=== PATIENT | female | born 1935 | race Caucasian/White ===

== ENCOUNTER 2025-01-29 20:29 | Inpatient (IN) ==
[2025-01-29 21:16] LABS: Basophils # (auto) 0.02 K/uL (0.00-0.20); Basophils % (auto) 0.3 %; Eosinophils # (auto) 0.02 K/uL (0.00-0.50); Eosinophils % (auto) 0.3 %; Hematocrit (blood only) 28.1 % (37.0-47.0); Hemoglobin 9.2 g/dl (12.0-16.0); Immature Granulocytes # (auto) 0.03 K/uL (0.01-0.20); Immature Granulocytes % (auto) 0.4 %; Lymphocytes # (auto) 2.03 K/uL (1.20-3.40); Lymphocytes % (auto) 28.3 %; Mean Corpuscular Hemoglobin 27.9 pg (25.0-34.0); Mean Corpuscular Hgb Conc 32.7 g/dL (32.0-36.0); Mean Corpuscular Volume 85.2 fL (80.0-100.0); Mean Platelet Volume 10.8 fL (9.4-12.4); Monocytes % (auto) 8.4 %; Neutrophils # (auto) 4.48 K/uL (1.40-6.50); Neutrophils % (auto) 62.3 %; Platelet Count 183 K/uL (130-400); RDW Standard Deviation 46.7 fL (36.4-46.3); White Blood Count 7.18 K/ul (4.8-10.8)
[2025-01-29 21:45] LABS: Albumin Globulin Ratio 1.5 (0.9-2); Albumin Level 2.9 gm/dl (3.4-5.0); BUN Creatinine Ratio 67.3 (10-20); Bilirubin,Total 0.2 mg/dl (0.2-1.0); Calcium 7.6 mg/dl (8.6-10.3); Creatinine Clr Calc Pharmacy 65.8 ml/min; Globulin 1.9 gm/dl (2.5-4.0); Magnesium 1.9 mg/dl (1.7-2.4); Potassium 4.4 mmol/L (3.5-5.1); Total Protein 4.8 gm/dl (6.0-8.3); Troponin I High Sensitivity 15.6 pg/ml (0-14)
[2025-01-29 21:51] LABS: Thyroid Stimulating Hormone 1.026 uIu/ml (0.300-4.500)
[2025-01-29 22:08] LABS: Adenovirus PCR Not Detected (NotDetected); Bordetella parapertussis PCR Not Detected (NotDetected); Bordetella pertussis PCR Not Detected (NotDetected); Chlamydia pneumoniae PCR Not Detected (NotDetected); Coronavirus 229E PCR Not Detected (NotDetected); Coronavirus CoV-2 (COVID19)PCR Not Detected (NotDetected); Coronavirus HKU1 PCR Not Detected (NotDetected); Coronavirus NL63 PCR Not Detected (NotDetected); Coronavirus OC43PCR Not Detected (NotDetected); Human Metapneumovirus PCR Not Detected (NotDetected); Influenza A PCR Not Detected (NotDetected); Influenza B PCR Not Detected (NotDetected); Mycoplasma pneumoniae PCR Not Detected (NotDetected); Parainfluenza Virus 1 PCR Not Detected (NotDetected); Parainfluenza Virus 2 PCR Not Detected (NotDetected); Parainfluenza Virus 3 PCR Not Detected (NotDetected); Parainfluenza Virus 4 PCR Not Detected (NotDetected); Respiratory Syncytial VirusPCR Not Detected (NotDetected); Rhinovirus/Enterovirus PCR Not Detected (NotDetected)
[2025-01-29 22:19] LABS: Prothrombin Time 29.3 Seconds (9.0-12.0)
[2025-01-29] MEDS: OPTIRAY 320 100ml IV ONE (23:38)
--- NOTE | 2025-01-29 23:49 | XRay Report ---
Exam(s): XR CXR 1 VIEW EXAM: XR Chest, 1 View CLINICAL HISTORY: Reason for exam: weakness. TECHNIQUE: Frontal view of the chest. COMPARISON: No relevant prior studies available. FINDINGS: Lungs: Mild peribronchial thickening of the central bronchi. There is 11 mm nodular density in the right lower lobe and a likely 5 mm nodular density in the right upper lobe. No consolidation. Pleural space: Unremarkable. No pneumothorax. Heart: Unremarkable. No cardiomegaly. Mediastinum: Unremarkable. Normal mediastinal contour. Bones/joints: Unremarkable. No acute fracture. IMPRESSION: Bronchitis, which may be of infectious or inflammatory etiologies. There are two 11 mm nodules in the right lung. Recommend CT scan of the chest for further evaluation. Communications: Verify Receipt Electronically signed by: Kalyani Braun MD 01/29/25 23:48 PM
--- NOTE | 2025-01-29 23:56 | Emergency Department Note ---
Impression & Plan Generalized weakness, Anemia ED Provider Note HISTORY OF PRESENT ILLNESS: Patient is an 89-year-old female presenting with generalized weakness. Family presents to bedside to help provide some more history. Reports that the patient was seen 3 days ago secondary to a scab on her left posterior upper arm that continued to bleed. Patient is on Coumadin. She is on Coumadin for previous history of stroke. States that the patient has not been feeling well for the last week, and over the last 3 days has been getting progressively worse. Patient is very lightheaded and dizzy when she stands up. She is normally ambulatory with a cane, but family reports that she has been so weak that they had to assist her in getting around. Patient reports feeling very thirsty and nauseous. She has not had much in terms of a solid food appetite. She given 700 cc of fluid and 4 mg IV Zofran prehospital with EMS. Patient denies any chest pain or shortness of breath. Denies any recent fevers. Denies that any abdominal pain, vomiting or diarrhea. Denies any recent sick contact exposures. Denies any recent head injuries or chiropractic manipulation of her neck. Denies any dysuria or hematuria. Reports that she just does not feel well. ROS: as above PHYSICAL EXAM: Constitutional: Patient appears in no acute distress. HENT: Head: Normocephalic and atraumatic. Eyes: EOMI, PERRL Mouth/Throat: Mucous membranes moist. Neck: Trachea midline. Neck supple. Cardiovascular: RRR, No murmurs, rubs or gallops. Intact distal pulses. Pulmonary/Chest: No respiratory distress. Breath sounds clear and equal bilaterally. No wheezes or rales. Abdominal: Abdomen soft, no tenderness, rebound or guarding. Musculoskeletal: No edema, tenderness or deformity noted. Skin: Warm and dry. No rash, erythema, pallor or cyanosis Psychiatric: Appropriate mood and affect for situation. Neurological: Alert and keenly responsive. CN II-XII grossly intact, moving all extremities equally and fully. MDM: - Vitals signs stable. - History obtained via patient and patient's daughters. History as above. - Chronic conditions affecting care: GERD; seizure disorder; CVA hx; HLD - Differential diagnoses include, but are not limited to: Pneumonia; UTI; CVA; intracranial hemorrhage; anemia; dysrhythmia; electrolyte abnormality - Order placed for continuous cardiac monitoring. At this time, monitor showed rate of 91 bpm with normal sinus rhythm, per my interpretation. - External medical records reviewed. Colonoscopy dated 02/13/2024 was reviewed. Patient had a 5 mm polyp in the descending colon. Noted to have nonbleeding internal hemorrhoids. - EKG image interpreted by myself showed normal sinus rhythm. Rate 85 bpm. QT 376. No acute ischemic changes. - Laboratory workup interpreted by myself showed normal WBC; anemia (Hgb 9.2 - down from 13.4 two days ago); therapeutic INR (3.0); normal lactate; elevated BUN (35); slightly elevated troponin (15.6); normal TSH - Viral respiratory panel negative. - CXR image reviewed myself is negative for pneumonia, per my interpretation. - CT head wo contrast negative for acute intracranial hemorrhage, per my interpretation. - Patient's symptoms may be secondary to her profound anemia. She has had a 4 g hemoglobin drop in 2 days. She denies any discoloration to her stool. - Discussion was had with case management social worker about patient's case and need for admission - Hospitalist, Dr. Ríos, consulted for admission - [facility] ASSESSMENT AND PLAN: Diagnosis: Generalized weakness; anemia Plan: admit Past Med/Surg History Problem List (Updated 01/29/25 @ 23:58 by Jes Jernigan MD) Anemia (Acute) Generalized weakness (Acute) Bleeding on Coumadin (Acute) Hx of colonic polyp Medical History Hx of basal cell carcinoma History of anesthesia reaction hypersensitive to all narcotics and anesthesia, difficulty waking, also had colonoscopy in the past where she was aware & in pain during procedure Hx of colonic polyp Hypercholesteremia Chronic back pain hx fractured spine age 32's Scoliosis History of stroke x 7, started in 2005, No Neuro at present, no deficits, daily coumadin Seizure disorder (~2018) only x 1, thought stroke, but ruled out, no longer sees Neuro, on Keppra GERD (gastroesophageal reflux disease) Blind right eye Macular degeneration Surgical History Hx of basal cell carcinoma excision Hx of melanoma excision Hx of colonoscopy with polypectomy History of surgery on wrist right Hx of hysterectomy Hx of total knee replacement right Social History Smoking Status: Former smoker Tobacco Type: Cigarettes Cigarettes Per Day: 1 PPD; Second Hand Exposure: No; Do You Dip or Chew Tobacco: No; Hx Alcohol Use: No Hx Substance Use: No Preferred Language: Icelandic Communication Ability: Effective Rock Lather Required: No Beliefs That Will Affect Care: None Current Living Situation: Alone Feels Safe at Home: Yes Assistive Devices: Cane and Walker Allergies Allergies Allergy/AdvReac Type Severity Reaction Status Date / Time azithromycin Allergy Mild Unknown Verified 02/13/24 08:10 [From Zithromax Z-Moe] meperidine [From Demerol] Allergy Mild Unknown Verified 02/13/24 08:10 Penicillins Allergy Mild Unknown Verified 02/13/24 08:10 Sulfa (Sulfonamide Allergy Mild Unknown Verified 02/13/24 08:10 Antibiotics) Home Meds Home Medications Medication Instructions Recorded Confirmed aspirin 81 mg capsule 81 mg PO QAM 01/29/24 02/13/24 calcium carbonate 500 mg PO QAM 01/29/24 02/13/24 cholecalciferol (vitamin D3) 25 25 mcg PO WK 01/29/24 02/13/24 mcg (1,000 unit) capsule (Vitamin D3) docusate sodium 50 mg capsule 50 mg PO HS 01/29/24 02/13/24 (Stool Softener) famotidine 20 mg tablet 20 mg PO QAM 01/29/24 02/13/24 levetiracetam 250 mg tablet 150 mg PO BID 01/29/24 02/13/24 (Keppra) fhcgtedwofsb-yanshnot-zzhyvs tablet 1 tab PO QAM 01/29/24 02/13/24 pravastatin 20 mg tablet 20 mg PO HS 01/29/24 02/13/24 vit C 250 mg-vit E 90 mg-zinc 40 1 tab PO BID 01/29/24 02/13/24 mg-copper 1 xw-btzvae-zskzpl capsule (PreserVision AREDS-2) vitamin B12 0.5 mg-folic acid 1 mg 1 tab PO WK 01/29/24 02/13/24 tablet warfarin 6 mg tablet 6 mg PO UD 01/29/24 02/13/24 Previous Rx's Medication Instructions Recorded peg 3350-electrolytes 236 240 ml PO Q10M #4,000 mL 02/01/24 gram-22.74 gram-6.74 gram-5.86 gram solution (GaviLyte-G) Results & Data (ED) Vital Signs Vital Signs - 24 hr 01/29/25 20:37 01/29/25 20:59 01/29/25 20:59 Temperature 36.8 C Temperature Source Oral Pulse Rate 86 Pulse Rate [Apical] 84 Respiratory Rate 18 16 Respiratory Effort / Characteristics Non-Labored Spontaneous Non-Labored Spontaneous Respiratory Depth Normal Respiratory Pattern Regular Blood Pressure 115/68 Blood Pressure [Right Arm] 101/65 Blood Pressure Mean 83 Blood Pressure Mean [Right Arm] 77 Blood Pressure Position Lying Pulse Oximetry 95 95 95 Oxygen Delivery Method Room Air Room Air Room Air Sepsis Recent Fever Within 48 Hours No Sepsis New/Unexplained Change in Mental Status N/A Sepsis Action Taken by Nursing No Action Required 01/29/25 20:59 01/29/25 22:21 01/29/25 22:24 Temperature Temperature Source Pulse Rate 89 91 H Pulse Rate [Apical] 94 H Respiratory Rate 16 16 Respiratory Effort / Characteristics Non-Labored Spontaneous Respiratory Depth Respiratory Pattern Blood Pressure Blood Pressure [Right Arm] 109/61 Blood Pressure Mean Blood Pressure Mean [Right Arm] 77 Blood Pressure Position Pulse Oximetry 95 95 Oxygen Delivery Method Room Air Room Air Sepsis Recent Fever Within 48 Hours Sepsis New/Unexplained Change in Mental Status Sepsis Action Taken by Nursing Laboratory Data 01/29/25 20:45 01/29/25 20:45 Lab Results 01/29/25 01/29/25 Range/Units 20:45 22:43 WBC 7.18 (4.8-10.8) K/ul RBC 3.30 L (4.20-5.40) M/uL Hgb 9.2 L (12.0-16.0) g/dl Hct 28.1 L (37.0-47.0) % MCV 85.2 (80.0-100.0) fL MCH 27.9 (25.0-34.0) pg MCHC 32.7 (32.0-36.0) g/dL RDW Std Deviation 46.7 H (36.4-46.3) fL RDW Coeff of Roge 15.0 H (11.5-14.5) % Plt Count 183 (130-400) K/uL MPV 10.8 (9.4-12.4) fL Immature Gran % (Auto) 0.4 % Neut % (Auto) 62.3 % Lymph % (Auto) 28.3 % [place] % (Auto) 8.4 % Eos % (Auto) 0.3 % Baso % (Auto) 0.3 % Neut # (Auto) 4.48 (1.40-6.50) K/uL Lymph # (Auto) 2.03 (1.20-3.40) K/uL [place] # (Auto) 0.60 H (0.11-0.59) K/uL Eos # (Auto) 0.02 (0.00-0.50) K/uL Baso # (Auto) 0.02 (0.00-0.20) K/uL Immature Gran # (Auto) 0.03 (0.01-0.20) K/uL PT 29.3 H (9.0-12.0) Seconds INR 3.0 H (0.9-1.1) Sodium 142 (136-145) mmol/L Potassium 4.4 (3.5-5.1) mmol/L Chloride 112 H (98-107) mmol/L Carbon Dioxide 28 (21-32) mmol/L Anion Gap 2 L (3-11) BUN 35 H (6-23) mg/dl Creatinine 0.52 L (0.6-1.2) mg/dl Est Cr Clr Drug Dosing 65.8 ml/min eGFR 89.87 BUN/Creatinine Ratio 67.3 H (10-20) Glucose 99 (70-99(Fasting)) mg/dl Lactate 0.9 (0.4-2.0) mmol/L Calcium 7.6 L (8.6-10.3) mg/dl Magnesium 1.9 (1.7-2.4) mg/dl Total Bilirubin 0.2 (0.2-1.0) mg/dl AST 14 (13-39) U/L ALT 12 (7-52) U/L Alkaline Phosphatase 60 (34-104) U/L Troponin I High Sens 15.6 H (0-14) pg/ml Total Protein 4.8 L (6.0-8.3) gm/dl Albumin 2.9 L (3.4-5.0) gm/dl Globulin 1.9 L (2.5-4.0) gm/dl Albumin/Globulin Ratio 1.5 (0.9-2) TSH 1.026 (0.300-4.500) uIu/ml Adenovirus (PCR) Not Detected (NotDetected) B. pertussis DNA (PCR) Not Detected (NotDetected) B.parapertussis DNA PCR Not Detected (NotDetected) C. pneumoniae DNA (PCR) Not Detected (NotDetected) Coronavirus OC43 (PCR) Not Detected (NotDetected) Coronavirus HKU1 (PCR) Not Detected (NotDetected) Coronavirus 229E (PCR) Not Detected (NotDetected) SARS-CoV-2 (PCR) Not Detected (NotDetected) Coronavirus NL63 (PCR) Not Detected (NotDetected) Human Metapneumovir PCR Not Detected (NotDetected) Influenza Type A (PCR) Not Detected (NotDetected) Influenza Type B (PCR) Not Detected (NotDetected) M. pneumoniae (PCR) Not Detected (NotDetected) Parainfluenza 1 (PCR) Not Detected (NotDetected) Parainfluenza 2 (PCR) Not Detected (NotDetected) Parainfluenza 3 (PCR) Not Detected (NotDetected) Parainfluenza 4 (PCR) Not Detected (NotDetected) RSV (PCR) Not Detected (NotDetected) Entero/Rhino (PCR) Not Detected (NotDetected) Administered Medications Discontinued Medications Ioversol (Optiray 320 100ml) 93 ml IV ONCE ONE Stop: 01/29/25 23:38 Last Admin: 01/29/25 23:38 Dose: 93 ml Documented By: PLW Imaging Data Radiologist's Impression: Chest X-Ray 01/29/25 20:54 CR Exam(s): XR CXR 1 VIEW EXAM: XR Chest, 1 View CLINICAL HISTORY: Reason for exam: weakness. TECHNIQUE: Frontal view of the chest. COMPARISON: No relevant prior studies available. FINDINGS: Lungs: Mild peribronchial thickening of the central bronchi. There is 11 mm nodular density in the right lower lobe and a likely 5 mm nodular density in the right upper lobe. No consolidation. Pleural space: Unremarkable. No pneumothorax. Heart: Unremarkable. No cardiomegaly. Mediastinum: Unremarkable. Normal mediastinal contour. Bones/joints: Unremarkable. No acute fracture. IMPRESSION: Bronchitis, which may be of infectious or inflammatory etiologies. There are two 11 mm nodules in the right lung. Recommend CT scan of the chest for further evaluation. Communications: Verify Receipt Electronically signed by: Kalyani Braun MD 01/29/25 23:48 PM Discharge Plan Visit Data Chief Complaint: Weakness Stated Complaint: WEAKNESS ED Provider: Jes Jernigan Discharge Problem: Generalized weakness, Anemia Forms Stand Alone Forms: My [facility] [employer] Prescriptions Prescriptions: No Action peg 3350-electrolytes [GaviLyte-G] 236-22.74-6.74 -5.86 gram recon soln 240 ml PO Q10M Qty: 4000 0RF Rx Instructions: until fecal effluent is clear Stool Softener 50 mg Capsule 50 mg PO HS warfarin 6 mg Tablet 6 mg PO UD Rx Instructions: 6 mg on Pvm-Qmp-Dyihv-Mon-Mon, 3 mg on and Sat famotidine 20 mg Tablet 20 mg PO QAM calcium carbonate 500 mg calcium (1,250 mg) Tablet 500 mg PO QAM levetiracetam [Keppra] 250 mg Tablet 150 mg PO BID pravastatin 20 mg Tablet 20 mg PO HS cholecalciferol (vitamin D3) [Vitamin D3] 25 mcg (1,000 unit) Capsule 25 mcg PO WK [id number]-[id number]-ofdasq Tablet 1 tab PO QAM vitamin Q15-jlmnc acid 0.5-1 mg Tablet 1 tab PO WK PreserVision AREDS-2 250-90-40-1 mg Capsule 1 tab PO BID aspirin 81 mg Capsule 81 mg PO QAM Referrals Referrals: Carol Encarnacion PA-C [Primary Care Provider] -
--- NOTE | 2025-01-30 00:41 | History & Physical Report ---
Date of Service January 30, 2025 Assessment & Plan (1) Hypotension: Plan: Hypotension secondary to recent LUE bleed Coumadin coagulopathy, history recurrent CVA No bleeding following ER visit 2 days ago with Gelfoam application on wound New onset anemia secondary to bleeding episode Complicated UTI, no sepsis for now hyperlipidemia, on statin Rx seizure disorder, stable on Keppra Incidental finding of pulmonary nodules on chest x-ray past tobacco abuse Admit to med/tele IVF Follow H&H, transfuse PRBC to maintain hemoglobin of at least 8 Hold Coumadin for now and resume once H&H stable Urine CS, ceftriaxone Outpatient CT chest for pulmonary nodules PT OT eval DVT prophylaxis. SCDs while Coumadin on hold if INR less than 2, resume Coumadin if H&H stable Full code Patient daughter requesting updates providers. Talya Michael, contact #[phone]. Text document was generated using [employer] voice recognition software. It may contain grammatical or spelling errors. Kindly contact undersigned for clarification of any documentation item in question. History of Present Illness Chief Complaint: Weakness, near syncope Primary Care Provider: Carol Encarnacion PA-C History obtained from patient, family, and records. 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 Patient noted to have bleeding spot on left arm after she scratched a seborrheic keratosis lesion last week as per daughter. Patient consulted ER 3 days ago. Gelfoam applied to punctate wound on posterior left upper extremity. Bleeding controlled following ER visit as per family. Yesterday, patient noted dizziness symptoms described as lightheadedness. [place] like she was going to pass out. Denies chest pain, SOB. Achy right-sided abdominal pain without black/bloody stools. SBP 80s upon EMS arrival at patient's home. 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 Allergies Allergy/AdvReac Type Severity Reaction Status Date / Time azithromycin Allergy Mild Unknown Verified 01/30/25 00:47 [From Zithromax Z-Moe] meperidine [From Demerol] Allergy Mild Unknown Verified 01/30/25 00:47 Penicillins Allergy Mild Unknown Verified 01/30/25 00:47 Sulfa (Sulfonamide Allergy Mild Unknown Verified 01/30/25 00:47 Antibiotics) Home Medications Medication Instructions Recorded Confirmed Type aspirin 81 mg capsule 81 mg PO QAM 01/29/24 01/30/25 History calcium carbonate 500 mg PO QAM 01/29/24 01/30/25 History xxtliuhehspa-kflziumo-aanoti tablet 1 tab PO QAM 01/29/24 01/30/25 History pravastatin 20 mg tablet 20 mg PO HS 01/29/24 01/30/25 History vit C 250 mg-vit E 90 mg-zinc 40 1 tab PO BID 01/29/24 01/30/25 History mg-copper 1 fx-smimgy-shfskk capsule (PreserVision AREDS-2) vitamin B12 0.5 mg-folic acid 1 mg 1 tab PO WK 01/29/24 01/30/25 History tablet warfarin 6 mg tablet 6 mg PO 6XWK 01/29/24 01/30/25 History peg 3350-electrolytes 236 240 ml PO Q10M #4,000 mL 02/01/24 01/30/25 Rx gram-22.74 gram-6.74 gram-5.86 gram solution (GaviLyte-G) cholecalciferol (vitamin D3) 10 400 unit PO DAILY 01/30/25 01/30/25 History mcg (400 unit) tablet docusate sodium 100 mg capsule 100 mg PO Q2D 01/30/25 01/30/25 History famotidine 40 mg tablet 40 mg PO DAILY 01/30/25 01/30/25 History levetiracetam 750 mg tablet 750 mg PO BID 01/30/25 01/30/25 History warfarin 6 mg tablet 3 mg PO WK 01/30/25 01/30/25 History Past Med/Surg History Problem List (Updated 01/30/25 @ 11:16 by Consuelo Longoria PA-C) Elevated troponin Pulmonary nodules Abnormal CT of the abdomen History of seizure disorder Occasional tremors Hypotension Near syncope Acute anemia UTI (urinary tract infection) Anemia (Acute) Generalized weakness (Acute) Bleeding on Coumadin (Acute) Hx of colonic polyp Medical History Hx of basal cell carcinoma History of anesthesia reaction hypersensitive to all narcotics and anesthesia, difficulty waking, also had colonoscopy in the past where she was aware & in pain during procedure Hx of colonic polyp Hypercholesteremia Chronic back pain hx fractured spine age 32's Scoliosis History of stroke x 7, started in 2005, No Neuro at present, no deficits, daily coumadin Seizure disorder (~2018) only x 1, thought stroke, but ruled out, no longer sees Neuro, on Keppra GERD (gastroesophageal reflux disease) Blind right eye Macular degeneration Surgical History Hx of basal cell carcinoma excision Hx of melanoma excision Hx of colonoscopy with polypectomy History of surgery on wrist right Hx of hysterectomy Hx of total knee replacement right Social History Smoking Status: Former smoker Tobacco Type: Cigarettes Cigarettes Per Day: 1 PPD; Smoking End Date: >50 yrs ago; Second Hand Exposure: No; Do You Dip or Chew Tobacco: No; Hx Alcohol Use: No Hx Substance Use: No Preferred Language: Icelandic Communication Ability: Effective Field Assembly Supervisor Required: No Beliefs That Will Affect Care: None Current Living Situation: Alone Feels Safe at Home: Yes Assistive Devices: Cane and Glasses Review of Systems Review of Systems: As per HPI, all other systems reviewed and negative Physical Exam Physical Exam: GENERAL: Slightly uncomfortable, slightly hard of hearing, no respiratory distress SKIN: Pallor,, warm HEENT: Pale palpebral conjunctivae, no ptosis, dry buccal mucosa NECK : Supple, no tenderness CHEST : CTA, no tenderness HEART : RRR, no obvious murmurs ABDOMEN: Some distention, nontender EXTREMITIES : Dressing LUE, no LE swelling/tenderness, palpable pulses, no other conspicuous deformities noted NEUROLOGIC : Coherent, no facial asymmetry, slightly hard of hearing, gait and stance not assessed Results & Data Results & Data Vital Signs (Past 12 Hours) Vital Signs Temp Pulse Pulse Resp BP BP Pulse Ox 01/29/25 22:24 91 H 01/29/25 22:21 94 H 16 109/61 95 01/29/25 20:59 89 16 95 01/29/25 20:59 84 16 101/65 95 01/29/25 20:59 95 01/29/25 20:37 36.8 C 86 18 115/68 95 O2 Del Method 01/29/25 22:24 01/29/25 22:21 Room Air 01/29/25 20:59 Room Air 01/29/25 20:59 Room Air 01/29/25 20:59 Room Air 01/29/25 20:37 Room Air Laboratory Results Laboratory Results WBC 7.18 K/ul (4.8-10.8) 01/29/25 20:45 RBC 3.30 M/uL (4.20-5.40) L 01/29/25 20:45 Hgb 9.2 g/dl (12.0-16.0) L 01/29/25 20:45 Hct 28.1 % (37.0-47.0) L 01/29/25 20:45 MCV 85.2 fL (80.0-100.0) 01/29/25 20:45 MCH 27.9 pg (25.0-34.0) 01/29/25 20:45 MCHC 32.7 g/dL (32.0-36.0) 01/29/25 20:45 RDW Std Deviation 46.7 fL (36.4-46.3) H 01/29/25 20:45 RDW Coeff of Roge 15.0 % (11.5-14.5) H 01/29/25 20:45 Plt Count 183 K/uL (130-400) 01/29/25 20:45 MPV 10.8 fL (9.4-12.4) 01/29/25 20:45 Immature Gran % (Auto) 0.4 % 01/29/25 20:45 Neut % (Auto) 62.3 % 01/29/25 20:45 Lymph % (Auto) 28.3 % 01/29/25 20:45 [place]idge % (Auto) 8.4 % 01/29/25 20:45 Eos % (Auto) 0.3 % 01/29/25 20:45 Baso % (Auto) 0.3 % 01/29/25 20:45 Neut # (Auto) 4.48 K/uL (1.40-6.50) 01/29/25 20:45 Lymph # (Auto) 2.03 K/uL (1.20-3.40) 01/29/25 20:45 Doddridge # (Auto) 0.60 K/uL (0.11-0.59) H 01/29/25 20:45 Eos # (Auto) 0.02 K/uL (0.00-0.50) 01/29/25 20:45 Baso # (Auto) 0.02 K/uL (0.00-0.20) 01/29/25 20:45 Immature Gran # (Auto) 0.03 K/uL (0.01-0.20) 01/29/25 20:45 PT 29.3 Seconds (9.0-12.0) H 01/29/25 20:45 INR 3.0 (0.9-1.1) H 01/29/25 20:45 Sodium 142 mmol/L (136-145) 01/29/25 20:45 Potassium 4.4 mmol/L (3.5-5.1) 01/29/25 20:45 Chloride 112 mmol/L (98-107) H 01/29/25 20:45 Carbon Dioxide 28 mmol/L (21-32) 01/29/25 20:45 Anion Gap 2 (3-11) L 01/29/25 20:45 BUN 35 mg/dl (6-23) H 01/29/25 20:45 Creatinine 0.52 mg/dl (0.6-1.2) L 01/29/25 20:45 Est Cr Clr Drug Dosing 65.8 ml/min 01/29/25 20:45 eGFR 89.87 01/29/25 20:45 BUN/Creatinine Ratio 67.3 (10-20) H 01/29/25 20:45 Glucose 99 mg/dl (70-99(Fasting)) 01/29/25 20:45 Lactate 0.9 mmol/L (0.4-2.0) 01/29/25 22:43 Calcium 7.6 mg/dl (8.6-10.3) L 01/29/25 20:45 Magnesium 1.9 mg/dl (1.7-2.4) 01/29/25 20:45 Total Bilirubin 0.2 mg/dl (0.2-1.0) 01/29/25 20:45 AST 14 U/L (13-39) 01/29/25 20:45 ALT 12 U/L (7-52) 01/29/25 20:45 Alkaline Phosphatase 60 U/L (34-104) 01/29/25 20:45 Troponin I High Sens 15.6 pg/ml (0-14) H 01/29/25 20:45 Total Protein 4.8 gm/dl (6.0-8.3) L 01/29/25 20:45 Albumin 2.9 gm/dl (3.4-5.0) L 01/29/25 20:45 Globulin 1.9 gm/dl (2.5-4.0) L 01/29/25 20:45 Albumin/Globulin Ratio 1.5 (0.9-2) 01/29/25 20:45 TSH 1.026 uIu/ml (0.300-4.500) 01/29/25 20:45 Adenovirus (PCR) Not Detected (NotDetected) 01/29/25 20:45 B. pertussis DNA (PCR) Not Detected (NotDetected) 01/29/25 20:45 B.parapertussis DNA PCR Not Detected (NotDetected) 01/29/25 20:45 C. pneumoniae DNA (PCR) Not Detected (NotDetected) 01/29/25 20:45 Coronavirus OC43 (PCR) Not Detected (NotDetected) 01/29/25 20:45 Coronavirus HKU1 (PCR) Not Detected (NotDetected) 01/29/25 20:45 Coronavirus 229E (PCR) Not Detected (NotDetected) 01/29/25 20:45 SARS-CoV-2 (PCR) Not Detected (NotDetected) 01/29/25 20:45 Coronavirus NL63 (PCR) Not Detected (NotDetected) 01/29/25 20:45 Human Metapneumovir PCR Not Detected (NotDetected) 01/29/25 20:45 Influenza Type A (PCR) Not Detected (NotDetected) 01/29/25 20:45 Influenza Type B (PCR) Not Detected (NotDetected) 01/29/25 20:45 M. pneumoniae (PCR) Not Detected (NotDetected) 01/29/25 20:45 Parainfluenza 1 (PCR) Not Detected (NotDetected) 01/29/25 20:45 Parainfluenza 2 (PCR) Not Detected (NotDetected) 01/29/25 20:45 Parainfluenza 3 (PCR) Not Detected (NotDetected) 01/29/25 20:45 Parainfluenza 4 (PCR) Not Detected (NotDetected) 01/29/25 20:45 RSV (PCR) Not Detected (NotDetected) 01/29/25 20:45 Entero/Rhino (PCR) Not Detected (NotDetected) 01/29/25 20:45 Impressions Chest X-Ray 01/29/25 20:54 CR Exam(s): XR CXR 1 VIEW EXAM: XR Chest, 1 View CLINICAL HISTORY: Reason for exam: weakness. TECHNIQUE: Frontal view of the chest. COMPARISON: No relevant prior studies available. FINDINGS: Lungs: Mild peribronchial thickening of the central bronchi. There is 11 mm nodular density in the right lower lobe and a likely 5 mm nodular density in the right upper lobe. No consolidation. Pleural space: Unremarkable. No pneumothorax. Heart: Unremarkable. No cardiomegaly. Mediastinum: Unremarkable. Normal mediastinal contour. Bones/joints: Unremarkable. No acute fracture. IMPRESSION: Bronchitis, which may be of infectious or inflammatory etiologies. There are two 11 mm nodules in the right lung. Recommend CT scan of the chest for further evaluation. Communications: Verify Receipt Electronically signed by: Kalyani Braun MD 01/29/25 23:[address] head: No evidence of acute intracranial pathology. CT abdomen pelvis: Fullness centrally in both kidneys. Much of this appears to represent parapelvic cysts though it is difficult to exclude some degree of bilateral hydronephrosis without delayed images. There is no dilated ureter or urinary tract calculus. No other visually acute findings. Diagnostic Findings EKG as per my interpretation :Rate 85, NSR, normal axis, nonspecific T wave abno rmalities
[2025-01-30 00:55] LABS: Appearance Urine Clear (Clear); Bacteria Urine Automated 4+ (None Seen); Bilirubin Urine Negative (Negative); Blood Urine Negative (Negative); Cast Urine Automated 0-2 /lpf (0-2); Color Urine Yellow; Epithelial Cell Urine Auto 0-2 /hpf (0-2); Glucose Urine UA Negative (Negative); Ketones Urine Trace (Negative); Leukocyte Esterase Urine 1+ (Negative); Nitrite Urine Negative (Negative); Protein Urine Negative (Negative); RBC Urine Automated 0-2 /hpf (0-2); Specific Gravity Urine 1.023 (1.000-1.030); Urobilinogen Urine Negative (Negative); pH Urine 5.5 (4.5-7.5)
[2025-01-30] MEDS: SODIUM CHLORIDE 0.45 % 1,000 ML IV STA (00:55)
[2025-01-30 01:02] LABS: Hematocrit (blood only) 26.7 % (37.0-47.0); Hemoglobin 8.7 g/dl (12.0-16.0); Reticulocyte % 1.39 % (0.50-2.00)
[2025-01-30] MEDS ORDERED: PROMETHAZINE 6.25 MG/50.25 ML BAG IV PRN (01:13)
[2025-01-30 01:28] LABS: Troponin I High Sensitivity 16.6 pg/ml (0-14)
[2025-01-30 01:42] LABS: Ferritin 11.6 ng/ml (8-388)
--- OUTSIDE RECORDS SUMMARY | 2025-01-30 01:42 | External Medical Summary | Summary of Care ---
Author Name Unknown Organization [facility] Address [address] [place] [address] Phone [phone] Care Team Providers Care Package Delivery Room Service Runner Name Role Phone Carol Encarnacion PA-C Primary Care Provider [phone] Reason for Visit * Reason Comments Dosage Adjustment Via Phone (anticoag Cl inic) Encounter Details Date Type Department Care Team (Late st Contact Info) Description 01/27/2025 6:15 PM EDT Anticoagulation [facility], Elenita Garcia [address] [place] [address] [place] [address] [place] [address] History of TIA (transient ischemic attack)* Allergies Active Allergy Reactions Criticality Noted Date Comments Atorvastatin 03/02/2023 Ciprofloxacin 03/02/2023 Levofloxacin 03/02/2023 Penicillins 03/02/2023 Rosuvastatin 03/02/2023 Sulfa Antibiotics 03/02/2023 Azithromycin 03/02/2023 documented as of this encounter (statuses as of 01/27/2025) Medications Aspirin 81 MG Oral Tablet Chewable Take 1 Tablet by mouth in the morning. Active Multi Adult Gummies Oral Tablet Chewable Take by mouth. Active PreserVision AREDS 2 Oral Tablet Chewable Take by mouth. Active Famotidine 10 MG Oral Tablet (Pepcid) Take 1 Tablet by mouth in the morning and 1 Tablet before bedtime. Active Vitamin B-12 100 MCG Oral Tablet (vitamin B-12) Take 1 Tablet by mouth in the morning. Active Vitamin D3 1.25 MG (97162 UT) Oral Capsule Take 1 Capsule by mouth in the morning. Active Enoxaparin Sodium 60 MG/0.6ML Injection Solution Prefilled Syringe (Lovenox)Indicat ions:History of TIA (transient ischemic attack) Inject 60 mg under the skin in the morning and 60 mg before bedtime. As instructed by the [facility]. 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 180 Tablet 2 4 Active Pravastatin Sodium 20 MG Oral Tablet (Pravachol)Indic ations:Dyslipide bibi, goal LDL below 100 Take 1 Tablet by mouth daily. 90 Tablet 2 4 Active Warfarin Sodium 6 MG Oral Tablet (Coumadin)Indica tions:History of TIA (transient ischemic attack) Take 0.5-1 Tablets by mouth in the morning. 90 Tablet 2 4 Active DULoxetine HCl 30 MG Oral Capsule Delayed Release Particles (Cymbalta)Indica tions:Spinal stenosis of lumbosacral region Take 1 Capsule by mouth in the morning. 90 Capsule 3 4 Active DULoxetine HCl 20 MG Oral Capsule Delayed Release Particles (duloxetine) Take 1 Capsule by mouth in the morning. At to 30 mg dose. For a total of 50 mg daily Do not cut, crush or chew. 30 Capsule 5 5 Active documented as of this encounter (statuses as of 01/27/2025) Active Problems Problem Noted Date Diagnosed Date Hx of nonmelanoma skin cancer 01/02/2025 Overview (01/02/2025): basal cell carcinoma (R upper arm 6/23) Hx of actinic keratosis 01/02/2025 Hx of melanoma in situ 01/02/2025 Overview (01/02/2025): melanoma in situ (R upper arm 6/23) History of spinal fracture 04/03/2023 Spinal stenosis of lumbosacral region 04/03/2023 Status post total right knee replacement 023 Hip arthritis 04/03/2023 Tubular adenoma of colon 04/03/2023 Personal history of malignant melanoma Dyslipidemia, goal LDL below 100 04/03/2023 History of squamous cell carcinoma 04/03/2023 History of TIA (transient ischemic attack) 04/03 Seizure disorder, simple par tial, without intractable epilepsy 04/03/2023 Macular degeneration of both eyes 04/03/2023 documented as of this encounter (statuses as of 01/27/2025) Resolved Problems Problem Noted Date Diagnosed Date Resolved Date 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 01/09/2024 01/02/2025 documented as of this encounter (statuses as of 01/27/2025) Immunizations Name Administration Dates Next Due COVID-19, MRNA-LNP, PF, 30 M CG/0.3 mL, 12 YRS AND ABOVE, IM (PFIZER-Comirnaty) 06/22/2023 RSV Vac., Recomb, Adjuvant, PF,0.5 Ml (Arexvy) 0 06/29/2023 Seasonal Influenza Virus Vac cine, Unspecified Formulation 06/12/2023 Zoster Vaccine Recombinant (Shingrix) 06/12/2023 ,04/06/2023 documented as of this encounter Social History Tobacco Use Types Packs/Day Years Used Date Smoking Tobacco: Former Cigarettes Smokeless Tobacco: Never Alcohol Use Standard Drinks/Week Comments Yes 0 (1 standard drink = 0.6 oz pur e alcohol) very occ Comments Unknown Sex and Gender Information Value Date Recorded Sex Assigned at Female 12/15/2023 6:26 AM EDT Legal Sex Female 8:48 AM EDT Gender Identity Female 12/15/2023 6:26 AM EDT Sexual Orientation Straight 12/15/2023 6: 26 AM EDT documented as of this encounter Progress Notes * Shaver, Carolyn Enedina, RPh - 01/27/2025 3:11 PM EDT Images from the original note were not included. Medication Therapy Disease Management - Anticoagulation Patient: Melina Blankenship | : 1935 Subjective Contacts Contact Date/Time Type Contact Phone/Fax 01/27/2025 02:43 PM EDT Phone (Incoming) Talya Sheth (Emergency Contact) [phone] (M) Patient-Reported Symptoms: Patient Findings Positives: Signs/symptoms of bleeding (See notes below), Extra doses (Already took Coumadin dose today) Negatives: Signs/symptoms of thrombosis, Change in health, Change in alcohol use, Change in activity, Upcoming invasive procedure, Missed doses, Change in medications, Change in diet/appetite, Bruising Comments: Per daughter patient has a blister on her shoulder which has been bleeding continuously for 1.5 hours despite pressure and Band-Aid. Patient has also been scratching her arms and legs and is dripping blood from the scratches and also has bleeding from fingerstick INR draw. Advised I recommend ER evaluation due to continuous uncontrolled bleeding. Patient already took Coumadin dose this AM. Daughter is agreeable to taking patient to ER- advised [facility] will follow up tomorrow to check status- advised if patient is discharged home tonight to not take Coumadin tomorrow until she hears fromus. Objective Current Warfarin Dose As of 01/27/2025 Warfarin maintenance plan: 3 mg (6 mg x 0.5) every Tue; 6 mg (6 mg x 1) all other days INR Result As of 01/27/2025 INR goal: 2.0-3.0 INR used for dosin.6 (01/27/2025) Assessment & Plan Warfarin Plan As of 01/27/2025 Full warfarin instructions: 01/28: Hold; Otherwise 3 mg every Tue; 6 mg all other days Next INR check: 02/03/2025 Repeat PT/INR TBD Weekly dose: not changed for now- will likely need decrease Additional Dosing Information: Description Home Machine Per daughter Talya always keep 1 week check for insurance Carolyn Rojas RP Clinical Pharmacist 01/27/2025, 3:11 PM * Gerda Charles CPhT - 01/27/2025 2:43 PM EDT Caller's name: Talya Preferred call back number(OFFICE NUMBER FOR ): [phone] Reason for call: INR and bleeding concerns Patient's daughter Talya calling in INR result from today. INR = 3.6 Daughter requesting call back with same day dosing since INR is high. She also states patient is bleeding quite a bit. She states anywhere she gets a small scratch or bumps her arm or leg even lightly she bleeds for a long time and they are unable to get it to stop. She assumes it is due to higher INR, but she is concerned. Thank you, Gerda Charles CPhT Medication Specialist II [facility] ([facility]) 01/27/2025,2:43 PM documented in this encounter Plan of Treatment Upcoming Encounters Date Type Department Care Team (Late st Contact Info) Description 01/28/2025 6:45 AM EDT Anticoagulation [facility] Clinical Pharmacy Services, [address] [place] [address] [facility], [address] [place] [address] 03/20/2025 1:00 PM EDT Office Visit Pharmacy, [facility] [address] [facility] [place] [address] [facility] [address] [facility] [place] [address] 01/06/2026 1:20 PM EDT Office Visit Dermatology, [address] [place] [phone] Gala Gould PA-C [address] [place] [address] [place] [id number] Health Maintenance Due Date Last Done Comments Depression Screening 1947 DTap/Tdap Vaccines (1 - Tdap) 1954 DXA Scan 2002 Adult Wellness Visit 2003 Pneumococcal Vaccine: 50+ Years (2 of 2 - PPSV23) 01/05/2018 01/05/2017 COVID-19 Vaccine ( season) 2024 06/12/2024, 06/22/2023, 04/06/2023, Additional history exists Zoster Vaccines Completed 06/12/2023, 04/06/2023 Influenza Vaccine (FLU shot) Completed 08/2024, 06/12/2024, 06/12/2023, Additional history exists HPV (Gardasil) Vaccine Aged Out No lo nger eligible based on patient's age to complete this topic Hepatitis B Vaccine Aged Out No longe r eligible based on patient's age to complete this topic MENINGOCOCCAL (MENACTRA/MENVEO) Aged Out No longer eligible based on patient's age to complete this topic Meningitis B Vaccine (Bexsero/Trumemba) Aged Out No longer eligible based on patient's age to complete this topic documented as of this encounter Medical Devices Not on filedocumented as of this encounter Procedures Procedure Name Priority Date/Time Associated Diagnosis Comments OUTSIDE LAB-PT/INR Routine 01/27/2025 documented in this encounter Results * OUTSIDE LAB-PT/INR (01/27/2025) INR-OUTSIDE LAB 3.6 us History Per Patient LABORATORY Final Result documented in this encounter Visit Diagnoses Diagnosis History of TIA (transient ischemic attack)- Primary Transient ischemic attack (TIA), and cerebral infarction without residual deficits documented in this encounter Care Teams Package Delivery Room Service Runner Relationship Specialty Start Date End Date Alysha Carol SANDRO Haile [address] [place] [address] PCP - General Physician Client Support Consultant 01/13/24 documented as of this encounter"
--- OUTSIDE RECORDS SUMMARY | 2025-01-30 01:42 | External Medical Summary | Summary of Care ---
Author Name Unknown Organization [facility] Address [address] [place] [address] Phone [phone] Care Team Providers Care Screen Printing Loader Unloader Name Role Phone MargaritabarbaraCarol PA-C Primary Care Provider [phone] Encounter Details Date Type Department Care Team (Late st Contact Info) Description 01/27/2025 Result Scan Unspecified Department <No scans attached> Allergies Active Allergy Reactions Criticality Noted Date Comments Atorvastatin 03/02/2023 Ciprofloxacin 03/02/2023 Levofloxacin 03/02/2023 Penicillins 03/02/2023 Rosuvastatin 03/02/2023 Sulfa Antibiotics 03/02/2023 Azithromycin 03/02/2023 documented as of this encounter (statuses as of 01/28/2025) Medications Aspirin 81 MG Oral Tablet Chewable [...] the morning. Active Vitamin D3 1.25 MG (57023 UT) Oral Capsule Take 1 Capsule by mouth in the morning. Active Enoxaparin Sodium 60 MG/0.6ML Injection Solution Prefilled Syringe (Lovenox)Indicat ions:History of TIA (transient ischemic attack) Inject 60 mg under the skin in the morning and 60 mg before bedtime. As instructed by the [facility]. 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 [address] [place] [address] 01/06/2026 1:20 PM EDT Office [address] [place] [phone] Gala Gould PA-C [address] [place] [address] [place] [address] Health Maintenance Due Date Last Done Comments [...] Name Priority Date/Time Associated Diagnosis Comments OUTSIDE LAB RESULTS 01/27/2025 documented in this encounter Results * OUTSIDE LAB RESULTS (01/27/2025) 01/27/2025 us No Physician Data Unknown LABORATORY Final Result documented in this encounter Care Teams Screen Printing Loader Unloader Relationship Specialty Start Date End Date AlyshaDecember SANDRO Haile [address] [place] [address] PCP - General Physician Carpenter Mate 01/13/24 documented as of this encounter
--- OUTSIDE RECORDS SUMMARY | 2025-01-30 01:42 | External Medical Summary | Summary of Care ---
Author Name Unknown Organization [facility] Address [address] [place] [address] Phone [phone] Care Team Providers Care Vehicle Monitor Technician Name Role Phone Carol Encarnacion PA-C Primary Care Provider [phone] Reason for Visit * Reason Comments Dosage Adjustment Via Phone (anticoag Cl inic) Encounter Details Date Type Department Care Team (Late st Contact Info) Description 01/28/2025 6:45 AM EDT Anticoagulation Centralized Clinical Pharmacy Services, Elenita Garcia [address] [place] [address] [place] [address] [place] [address] History of TIA (transient ischemic attack)* Allergies [...] the morning. Active Vitamin D3 1.25 MG (22399 UT) Oral Capsule Take 1 Capsule by mouth in the morning. Active Enoxaparin Sodium 60 MG/0.6ML Injection Solution Prefilled Syringe (Lovenox)Indicat ions:History of TIA (transient ischemic attack) Inject 60 mg under the skin in the morning and 60 mg before bedtime. As instructed by the [facility]. 6 mL 3 Active [...] as of this encounter Progress Notes * Kristen Maurice RPh - 01/28/2025 2:48 PM EDT Medication Therapy Disease Management - Anticoagulation Patient: Melina Blankenship | : 1935 Subjective Contacts Contact Date/Time Type Contact Phone/Fax 01/28/2025 04:46 AM EDT Email SMS () [phone] Patient not accepting updates 01/28/2025 02:53 PM EDT Phone (Outgoing) Talya Sheth (Emergency Contact) [phone] (M) Patient-Reported Symptoms: Patient Findings Positives: Signs/symptoms of bleeding (bleeding from shoulder/arm - see comments), Emergency department visit ([facility] ER 01/27 for bleeding to a wound on the shoulder) Comments: While at the ER - a 'coagulant' strip/gauze was applied in efforts to stop the bleeding. By AM, pt did bleed through the strip. Dtr changed strip this AM and around noon, pt had not bled through the strip yet. EC is aware to call this week if any worsening or any bleeding concerns. Otherwise, will try decreased weekly dose as INR has been trending up each week and pt is having bleeding concerns that brought her to the ER. Objective Current Warfarin Dose As of 01/28/2025 Warfarin maintenance plan: 3 mg (6 mg x 0.5) every Tue; 6 mg (6 mg x 1) all other days INR Result As of 01/28/2025 INR goal: 2.0-3.0 INR used for dosing: No new INR was available at the time of this encounter. Assessment & Plan Warfarin Plan As of 01/28/2025 Full warfarin instructions: 01/28: Hold; Otherwise 3 mg every Tue, Tesha; 6 mg all other days Next INR check: 02/03/2025 Repeat PT/INR in 1 week(s) Weekly dose: not changed Additional Dosing Information: Description Home Machine Per daughter Talya always keep 1 week check for insurance Kristen Maurice RPh Clinical Pharmacist 01/28/2025, 2:50 PM documented in this encounter Plan of Treatment Upcoming Encounters Date Type Department Care Team (Late st Contact Info) Description 02/03/2025 6:15 PM EDT Anticoagulation Centralized Clinical Pharmacy Services, Elenita Garcia [address] [place] [address] [place] [address] [place] [address] 03/20/2025 1:00 PM EDT Office Visit Pharmacy, [facility] [address] [facility] [place] [address] [facility] [address] [facility] [place] [address] 01/06/2026 1:20 PM EDT Office Visit Dermatology, [address] [facility] [place] [phone] Gala Gould PA-Nikos [address] [place] [address] [place] [address] Health Maintenance Due Date Last Done Comments [...] Not on filedocumented as of this encounter Visit Diagnoses Diagnosis History of TIA (transient ischemic attack)- Primary Transient ischemic attack (TIA), and cerebral infarction without residual deficits documented in this encounter Care Teams Vehicle Monitor Technician Relationship Specialty Start Date End Date AlyshaDecember Mic, SANDRO [address] [place] [address] PCP - General Physician Director Retirement 01/13/24 documented as of this encounter"
--- NOTE | 2025-01-30 01:44 | CT Scan Report ---
Exam(s): CT ABDOMEN + PELVIS With Contrast IV Amt: 93 ml opti 320 EXAM: CT Abdomen and Pelvis With Intravenous Contrast CLINICAL HISTORY: Reason for exam: abd pain, coumadin. TECHNIQUE: Axial computed tomography images of the abdomen and pelvis with intravenous contrast. CTDI is 18.38 mGy and DLP is 841.55 mGy-cm. Automated exposure control was utilized for the study. A dose lowering technique was utilized adhering to the principles of ALARA. CONTRAST: Patient received 93 ml opti 320 of IV contrast COMPARISON: No relevant prior studies available. FINDINGS: ABDOMEN: Liver: Unremarkable. No mass. Gallbladder and bile ducts: Unremarkable. No calcified stones. No ductal dilation. Pancreas: Unremarkable. No mass. No ductal dilation. Spleen: Unremarkable. No splenomegaly. Adrenals: Unremarkable. No mass. Kidneys and ureters: Fullness bilaterally in the central portions of both kidneys. Much of this may represent clusters of parapelvic cysts; however, at least mild bilateral hydronephrosis is difficult to exclude without delayed images. There is no dilated ureter. There is no urinary tract calculus. Stomach and bowel: Generalized increase in stool within the mid to distal colon. No obstruction. No mucosal thickening. PELVIS: Appendix: No findings to suggest acute appendicitis. Bladder: Unremarkable. No mass. Reproductive: Hysterectomy. ABDOMEN and PELVIS: Intraperitoneal space: Unremarkable. No free air. No significant fluid collection. Bones/joints: No acute findings. Soft tissues: Unremarkable. Vasculature: Extensive atherosclerotic calcification of the aorta and its major branches.. No abdominal aortic aneurysm. Lymph nodes: Unremarkable. No enlarged lymph nodes. IMPRESSION: Fullness centrally in both kidneys. Much of this appears to represent parapelvic cysts though it is difficult to exclude some degree of bilateral hydronephrosis without delayed images. There is no dilated ureter or urinary tract calculus. No other visually acute findings. Electronically signed by: Mukund Hedrick MD 01/30/25 01:43 AM
[2025-01-30 01:46] LABS: Folate (Folic Acid),Ser orPlas 18.1 ng/ml (>5.38)
[2025-01-30] MEDS: cefTRIAXone SODIUM 2,000 MG/50 ML BAG IV STA (02:23)
--- NOTE | 2025-01-30 02:54 | CT Scan Report ---
Exam(s): CT HEAD Without Contrast EXAM: CT Head Without Intravenous Contrast CLINICAL HISTORY: Reason for exam: weakness. TECHNIQUE: Axial computed tomography images of the head/brain without intravenous contrast. CTDI is 37.51 mGy and DLP is 624.41 mGy-cm. Automated exposure control was utilized for the study. A dose lowering technique was utilized adhering to the principles of ALARA. COMPARISON: No relevant prior studies available. FINDINGS: Brain: There is a remote ischemic injury of the right frontal lobe with encephalomalacia and gliosis. No hemorrhage. No significant white matter disease. No edema. Ventricles: Mild ventriculomegaly. Bones/joints: Unremarkable. No acute fracture. Soft tissues: Unremarkable. Sinuses: Unremarkable as visualized. No acute sinusitis. Mastoid air cells: Unremarkable as visualized. No mastoid effusion. IMPRESSION: No evidence of acute intracranial pathology. Electronically signed by: Kalyani Braun MD 01/30/25 02:53 AM
[2025-01-30 07:23] LABS: Basophils # (auto) 0.02 K/uL (0.00-0.20); Basophils % (auto) 0.2 %; Eosinophils # (auto) 0.02 K/uL (0.00-0.50); Eosinophils % (auto) 0.2 %; Hematocrit (blood only) 25.7 % (37.0-47.0); Hemoglobin 8.3 g/dl (12.0-16.0); Immature Granulocytes # (auto) 0.03 K/uL (0.01-0.20); Immature Granulocytes % (auto) 0.3 %; Lymphocytes # (auto) 3.58 K/uL (1.20-3.40); Lymphocytes % (auto) 35.4 %; Mean Corpuscular Hemoglobin 27.7 pg (25.0-34.0); Mean Corpuscular Hgb Conc 32.3 g/dL (32.0-36.0); Mean Corpuscular Volume 85.7 fL (80.0-100.0); Monocytes # (auto) 0.94 K/uL (0.11-0.59); Monocytes % (auto) 9.3 %; Neutrophils # (auto) 5.51 K/uL (1.40-6.50); Neutrophils % (auto) 54.6 %; Platelet Count 191 K/uL (130-400); RDW Coefficient of Variation 15.3 % (11.5-14.5); RDW Standard Deviation 47.5 fL (36.4-46.3)
[2025-01-30 07:41] LABS: BUN Creatinine Ratio 69.6 (10-20); Calcium 7.7 mg/dl (8.6-10.3); Creatinine Clr Calc Pharmacy 77.5 ml/min; Potassium 3.6 mmol/L (3.5-5.1)
[2025-01-30 07:48] LABS: INR 2.9 (0.9-1.1); Prothrombin Time 28.2 Seconds (9.0-12.0)
[2025-01-30 07:49] LABS: Troponin I High Sensitivity 15.2 pg/ml (0-14)
[2025-01-30] MEDS: SODIUM CHLORIDE 0.9% 500 ML IV ONE (08:57)
[2025-01-30] MEDS: levETIRAcetam 250 MG TAB PO SCH (09:08)
[2025-01-30] MEDS: PHYTONADIONE 5 MG in DEXTROSE 5% 50 ML IV ONE (09:08)
[2025-01-30] MEDS: CEROVITE ADV FORMULA TAB PO SCH (09:09)
--- NOTE | 2025-01-30 09:13 | Hospitalist Progress Note ---
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 Suspect generalized weakness and overall physical deconditioning is multifactorial due to symptomatic anemia and UTI as per below. Significant decline in Hgb from 13.4 on 01/27 to 8.3 this morning. Suspected bleeding due to warfarin therapy causing acute anemia. Spoke with the patient's daughter, Talya. Had a small bleeding wound on the posterior aspect of her LUE after she accidentally scratched this area on Monday. This wound was reportedly oozing from Monday up until Monday when she was previously seen in the ED. Patient on warfarin due to history of CVA over 10 years ago. Bandaging C/D/I on posterior LUE upon examination this morning. No other evidence of bleeding (hematuria/hematochezia/melena) per discussion with Talya. Holding warfarin and ASA. INR 2.9 this morning. Will give dose of vit K. Repeat H/H at 12p and 6p. NPO for now. Check anemia panel, FOBT. Blood consent obtained and in patient's chart. No indication to transfuse at this time; however, will need to consider transfusion if Hgb<7 on repeat H/H testing. IVF running 2/2 hypotension. Continue routine BP monitoring. Fall precautions. IV PPI BID to cover for possible underlying GI source of bleeding. If anemia continues to worsen, will then be inclined to consult GI for possible EGD and/or colonscopy. (3) UTI (urinary tract infection): Plan: UA with evidence of infection given 1+ LE, 6-10 WBC and 4+ bacteria. Likely contributing to generalized weakness as per above. Daughter reports patient has been having visual hallucinations as well over the past week - suspect due to underlying infection. No reports of hallucinations during her hospitalization thus far. No fevers either. Continue IV Rocephin pending her urine culture results. (4) Occasional tremors: (5) History of seizure disorder: Plan: Daughter, Talya, reports that patient has intermittent BUE and BLE tremors at baseline. No reported seizure activity in over 10 years. Continue Keppra. Will check Keppra level. (6) Elevated troponin: Plan: Likely demand ischemia 2/2 above. EKG without evidence of ST changes on admission. Troponin now flattened. (7) Abnormal CT of the abdomen: Plan: CTAP: Fullness centrally in both kidneys. Much of this appears to represent parapelvic cysts though it is difficult to exclude some degree of bilateral hydronephrosis without delayed images. There is no dilated ureter or urinary tract calculus. No other visually acute findings. Renal function remains stable. No evidence of JOANN. Did check renal/bladder US which redemonstrated cortical thinning of the kidneys and bilateral renal sinus cysts however there was no evidence of hydronephrosis. Continue to closely monitor renal function. (8) Pulmonary nodules: Plan: Incidental finding of two 11mm nodules in the R lung on CXR. Will need outpatient chest CT for further evaluation. CXR also noted mild peribronchial thickening of the central bronchi however patient is without any respiratory complaints. Suspect noninfectious etiology. Other Chronic Medical Conditions: HLD - Continue statin. DVT Prophylaxis: SCDs/TEDs only for now given anemia. 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 Code Status: FULL CODE PCP: Carol Encarnacion PA-C Disposition: Discharge plans uncertain at this time. Patient lives at home alone. Obtain PT/OT evaluations. Above plan of care discussed in detail with the patient's daughter, Talya, over the phone @ [phone]. She expressed understanding and is agreeable with the above measures. She would like routine updates from providers. Patient seen in collaboration with Dr. Romero. Please see addendum. I spent a total of 66 minutes coordinating, documenting, and providing care for this patient excluding time spent in the performance of separately billed services or time spent by another provider/QHP. This included personally revi lee all current laboratories and imaging studies, medical reconciliation, outpatient chart review and discussion with specialists. This chart was completed in part utilizing Speech Voice Recognition Software. Grammatical errors, random word insertions, pronoun errors, and incomplete sentences are an occasional consequence of this system due to software limitations, ambient noise, and hardware issues. Any formal questions or concerns about the content, text, or information contained within the body of this dictation should be directly addressed to the provider for clarification. Admission and Anticipated Discharge Date Admission Date: January 30, 2025 Supervising Physician Co-Signing Physician Notes Attending Addendum: Case reviewed with the advanced practitioner. I have personally seen and examined patient at bedside I have reviewed the advanced practitioner's documentation on the date of service referenced in note, and I agree with, and take responsibility for the plan of care. please refer to her notes for full details patient seen and examined, records reviewed by myself as well all labs, imaging noted and reviewed ASSESSMENT AND PLAN diagnoses and plan of care as per advanced practitioner's notes I spent a total of 35 minutes coordinating, documenting, and providing care for this patient, excluding time spent in the performance of separately billed services or time spent by another provider/QHP. Adal Romero MD Subjective Patient seen and examined in room W262-[address] Rom[address] JOSE. Patient is A&Ox3 during our conversation. Endorses ongoing fatigue and generalized weakness. Denies any chest pain, SOB, abdominal pain or dysuria. Does not recall any recent trauma or falls. Was able to gather more history from the patient's daughter, Talya, over the phon e this morning. Patient lives by herself. Had a small bleeding wound on the posterior aspect of her LUE after patient accidentally scratched this area on Monday. This wound was reportedly oozing from Monday up until Monday when she was previously seen in the [facility] ED. Patient is on warfarin due to history of CVA over 10 years ago. Talya mentions that it has not been bleeding or oozing since Monday night. Hemostatic dressings have been applied to the area repeatedly. She does not recall her mother having any other incidences of bleeding such as hematuria, hemoptysis, hematochezia or melena. INR was reportedly 3.6 on Monday when checked at home. Hgb steadily downtrending on repeat labs this morning. Was 9.2 on admission and is now down to 8.3; again, no incidences or episodes of bleeding reported. Patient has not been out of bed this morning. Was previously having some lightheadedness and dizziness with ambulation INSURANCE AND BENEFITS CLERK which subsequently prompted her being brought to the ED. Denies any lightheadedness, dizziness or visual changes whilst lying down in bed this morning. No reports of N/V. Has not yet eaten this morning. Review of Systems Review of Systems: At least ten systems reviewed and negative, except as noted in the subjective section. Physical Exam Physical Exam: General/Neurologic: Elderly, F. NAD. Laying down in bed. Pleasant. A&Ox3 with conversation. Periods of forgetfulness. HEENT: Normocephalic, atraumatic. Conjunctivae normal, anicteric sclerae. External ear and nose normal, oropharynx normal. Respiratory: Normal respiratory effort, lungs clear to auscultation bilaterally. Remains on room air. No accessory muscle use. Cardiovascular: Regular rate and rhythm. + systolic murmur. No BLE edema. Normal peripheral pulses. Abdomen/GI: Normal bowel sounds, soft, nondistended. Nontender to palpation in all quadrants. Extremities/MSK: No cyanosis or clubbing. Extremities motor strength intact. Actively moves all extremities. + bandaging overlying wound on posterior aspect of LUE which is C/D/I. No evidence of oozing or seeping. Has intermittent BUE and BLE tremors which her daughter, Talya, reports is chronic. No reported seizure activity in >10 years. Results & Data Results & Data Vital Signs (Past 12 Hours) Vital Signs Temp Pulse Pulse Pulse Resp BP BP 01/30/25 07:38 36.9 C 84 01/30/25 05:34 86 01/30/25 03:10 01/30/25 03:10 36.7 C 87 18 121/80 01/30/25 03:07 87 01/30/25 02:52 87 16 116/61 01/30/25 02:42 95 H 17 01/30/25 02:21 88 25 H 01/30/25 02:12 88 17 01/30/25 02:09 88 16 01/30/25 02:01 124/83 01/30/25 02:01 124/83 01/30/25 01:57 89 15 01/30/25 01:51 92 H 13 01/30/25 01:42 90 19 01/30/25 01:36 90 13 01/30/25 01:31 90/78 L 01/30/25 01:21 84 15 01/30/25 01:15 93 H 17 01/30/25 01:03 89 14 01/30/25 01:01 120/71 01/30/25 01:01 120/71 01/30/25 01:01 120/71 01/30/25 01:01 120/71 01/30/25 00:55 124/76 01/30/25 00:55 124/76 01/30/25 00:42 86 18 01/30/25 00:33 85 23 01/30/25 00:27 85 26 H 01/30/25 00:02 99/65 L 01/30/25 00:02 99/65 L 01/30/25 00:02 93 H 18 01/30/25 00:00 84 18 01/29/25 23:27 84 16 01/29/25 23:03 86 12 01/29/25 22:55 103/86 01/29/25 22:39 96 H 17 01/29/25 22:31 109/61 01/29/25 22:30 111 H 19 01/29/25 22:24 91 H 01/29/25 22:21 93 H 15 01/29/25 22:21 94 H 16 01/29/25 22:18 93 H 15 01/29/25 22:00 98/67 L 01/29/25 22:00 98/67 L 01/29/25 22:00 98/67 L 01/29/25 22:00 89 16 01/29/25 21:57 88 14 01/29/25 21:48 88 10 L 01/29/25 21:33 91 H 19 01/29/25 21:30 99/60 L 01/29/25 21:30 99/60 L 01/29/25 21:18 89 22 BP Pulse Ox O2 Del Method 01/30/25 07:38 107/68 93 Room Air 01/30/25 05:34 01/30/25 03:10 Room Air 01/30/25 03:10 96 Room Air 01/30/25 03:07 01/30/25 02:52 96 Room Air 01/30/25 02:42 01/30/25 02:21 01/30/25 02:12 01/30/25 02:09 01/30/25 02:01 01/30/25 02:01 01/30/25 01:57 95 01/30/25 01:51 96 01/30/25 01:42 95 01/30/25 01:36 94 01/30/25 01:31 01/30/25 01:21 94 01/30/25 01:15 96 01/30/25 01:03 92 01/30/25 01:01 01/30/25 01:01 01/30/25 01:01 01/30/25 01:01 01/30/25 00:55 01/30/25 00:55 01/30/25 00:42 94 01/30/25 00:33 94 01/30/25 00:27 93 01/30/25 00:02 01/30/25 00:02 01/30/25 00:02 99/65 L 93 Room Air 01/30/25 00:00 98 01/29/25 23:27 95 01/29/25 23:03 92 01/29/25 22:55 01/29/25 22:39 98 01/29/25 22:31 01/29/25 22:30 93 01/29/25 22:24 01/29/25 22:21 98 01/29/25 22:21 109/61 95 Room Air 01/29/25 22:18 96 01/29/25 22:00 01/29/25 22:00 01/29/25 22:00 01/29/25 22:00 98 01/29/25 21:57 96 01/29/25 21:48 99 01/29/25 21:33 94 01/29/25 21:30 01/29/25 21:30 01/29/25 21:18 95 Laboratory Results Short CBC 01/29/25 01/30/25 01/30/25 Range/Units 20:45 00:47 06:46 WBC 7.18 10.10 (4.8-10.8) K/ul Hgb 9.2 L 8.7 L 8.3 L (12.0-16.0) g/dl Hct 28.1 L 26.7 L 25.7 L (37.0-47.0) % Plt Count 183 191 (130-400) K/uL BMP 01/29/25 01/30/25 20:45 06:46 Sodium 142 138 Potassium 4.4 3.6 Chloride 112 H 106 Carbon Dioxide 28 29 BUN 35 H 32 H Creatinine 0.52 L 0.46 L Glucose 99 93 Calcium 7.6 L 7.7 L Liver Function 01/29/25 Range/Units 20:45 Total Bilirubin 0.2 (0.2-1.0) mg/dl AST 14 (13-39) U/L ALT 12 (7-52) U/L Alkaline Phosphatase 60 (34-104) U/L Albumin 2.9 L (3.4-5.0) gm/dl Urine 01/29/25 Range/Units 22:57 Urine Color Yellow Urine Appearance Clear (Clear) Urine pH 5.5 (4.5-7.5) Ur Specific [place] 1.023 (1.000-1.030) Urine Protein Negative (Negative) Urine Glucose (UA) Negative (Negative) Diagnostic Findings Chest X-Ray 01/29/25 20:54 CR Exam(s): XR CXR 1 VIEW EXAM: XR Chest, 1 View CLINICAL HISTORY: Reason for exam: weakness. TECHNIQUE: Frontal view of the chest. COMPARISON: No relevant prior studies available. FINDINGS: Lungs: Mild peribronchial thickening of the central bronchi. There is 11 mm nodular density in the right lower lobe and a likely 5 mm nodular density in the right upper lobe. No consolidation. Pleural space: Unremarkable. No pneumothorax. Heart: Unremarkable. No cardiomegaly. Mediastinum: Unremarkable. Normal mediastinal contour. Bones/joints: Unremarkable. No acute fracture. IMPRESSION: Bronchitis, which may be of infectious or inflammatory etiologies. There are two 11 mm nodules in the right lung. Recommend CT scan of the chest for further evaluation. Communications: Verify Receipt Electronically signed by: Kalyani Braun MD 01/29/25 23:[address] 01/29/25 23:18 Exam(s): CT HEAD Without Contrast EXAM: CT Head Without Intravenous Contrast CLINICAL HISTORY: Reason for exam: weakness. TECHNIQUE: Axial computed tomography images of the head/brain without intravenous contrast. CTDI is 37.51 mGy and DLP is 624.41 mGy-cm. Automated exposure control was utilized for the study. A dose lowering technique was utilized adhering to the principles of ALARA. COMPARISON: No relevant prior studies available. FINDINGS: Brain: There is a remote ischemic injury of the right frontal lobe with encephalomalacia and gliosis. No hemorrhage. No significant white matter disease. No edema. Ventricles: Mild ventriculomegaly. Bones/joints: Unremarkable. No acute fracture. Soft tissues: Unremarkable. Sinuses: Unremarkable as visualized. No acute sinusitis. Mastoid air cells: Unremarkable as visualized. No mastoid effusion. IMPRESSION: No evidence of acute intracranial pathology. Electronically signed by: Kalyani Braun MD 01/30/25 02:53 AM Abdomen/Pelvis CT 01/29/25 23:25 Exam(s): CT ABDOMEN + PELVIS With Contrast IV Amt: 93 ml opti 320 EXAM: CT Abdomen and Pelvis With Intravenous Contrast CLINICAL HISTORY: Reason for exam: abd pain, coumadin. TECHNIQUE: Axial computed tomography images of the abdomen and pelvis with intravenous contrast. CTDI is 18.38 mGy and DLP is 841.55 mGy-cm. Automated exposure control was utilized for the study. A dose lowering technique was utilized adhering to the principles of ALARA. CONTRAST: Patient received 93 ml opti 320 of IV contrast COMPARISON: No relevant prior studies available. FINDINGS: ABDOMEN: Liver: Unremarkable. No mass. Gallbladder and bile ducts: Unremarkable. No calcified stones. No ductal dilation. Pancreas: Unremarkable. No mass. No ductal dilation. Spleen: Unremarkable. No splenomegaly. Adrenals: Unremarkable. No mass. Kidneys and ureters: Fullness bilaterally in the central portions of both kidneys. Much of this may represent clusters of parapelvic cysts; however, at least mild bilateral hydronephrosis is difficult to exclude without delayed images. There is no dilated ureter. There is no urinary tract calculus. Stomach and bowel: Generalized increase in stool within the mid to distal colon. No obstruction. No mucosal thickening. PELVIS: Appendix: No findings to suggest acute appendicitis. Bladder: Unremarkable. No mass. Reproductive: Hysterectomy. ABDOMEN and PELVIS: Intraperitoneal space: Unremarkable. No free air. No significant fluid collection. Bones/joints: No acute findings. Soft tissues: Unremarkable. Vasculature: Extensive atherosclerotic calcification of the aorta and its major branches.. No abdominal aortic aneurysm. Lymph nodes: Unremarkable. No enlarged lymph nodes. IMPRESSION: Fullness centrally in both kidneys. Much of this appears to represent parapelvic cysts though it is difficult to exclude some degree of bilateral hydronephrosis without delayed images. There is no dilated ureter or urinary tract calculus. No other visually acute findings. Electronically signed by: Mukund Hedrick MD 01/30/25 01:43 AM (3) UTI (urinary tract infection) Hematuria presence: without hematuria Urinary tract infection type: site unspecified Qualified Code(s): N39.0 - Urinary tract infection, site not specified
[2025-01-30] MEDS: SODIUM CHLORIDE 0.9% 1,000 ML IV SCH (09:36)
[2025-01-30] MEDS: PANTOprazole 40 MG/10 ML SYR IV SCH (09:43)
--- NOTE | 2025-01-30 10:03 | Electrocardiogram Report ---
Test Reason : Blood Pressure : */* mmHG Vent. Rate : 85 BPM Atrial Rate : 85 BPM P-R Int : 176 ms QRS Dur : 86 ms QT Int : 376 ms P-R-T Axes : 61 54 218 degrees QTcB Int : 447 ms Normal sinus rhythm Nonspecific T wave abnormality Abnormal ECG No previous ECGs available Confirmed by Micheal Bhakta ([id number]) on 01/30/2025 10:02:30 AM Referred By: REFERRED SELF Confirmed By: Micheal Bhakta
--- NOTE | 2025-01-30 10:40 | Ultrasound Report ---
RENAL ULTRASOUND HISTORY: Bilateral flank pain with urinary tract infection UTI, possible hydronephrosis COMPARISON: CT abdomen and pelvis 01/30/2020 FINDINGS: Right kidney: 9.5 cm. Renal sinus cysts redemonstrated. No hydronephrosis. 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 Mild cortical thinning again noted. Left kidney: 8.5 cm. No hydronephrosis. Mild cortical thinning again noted. The left kidney is partia lly obscured by bowel gas. Renal sinuses are better seen on the prior study. Bladder: No bladder wall thickening. Only the left ureteral jet is seen. IMPRESSION: 1. Cortical thinning of the kidneys redemonstrated without hydronephrosis. 2. 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 ACT 112: Negative or not required by law. Electronically signed by: Demond Coleman M.D. 01/30/2025 10:38 AM
[2025-01-30 14:40] LABS: Hematocrit (blood only) 23.4 % (37.0-47.0); Hemoglobin 7.5 g/dl (12.0-16.0)
[2025-01-30 15:15] LABS: Ferritin 10.3 ng/ml (8-388)
--- NOTE | 2025-01-30 15:17 | Communication Note ---
Date of Service: January 30, 2025 Hgb continues to downtrend with no other obvious source of bleeding except for the wound on the posterior aspect of her LUE that was previously oozing over the weekend. Patient remains hemodynamically stable except for hypotension which has been responding to IVF. IVF could be contributing to dilutional component in some degree however Hgb was previously 8.3 earlier this morning and is now down to 7.5 this afternoon. Of note, Hgb was previously WNL at 13.4 on 01/27/25. No prior history of anemia per discussion with patient's daughter, Talya, this morning. Will consult GI for possible EGD and/or colonoscopic evaluation to rule-out occult GI source. Prior CTAP on 01/29 with no evidence of retroperitoneal hemorrhage. Will repeat CTAP as well given worsening anemia. Prior colonoscopy in January 2024: non-bleeding internal hemorrhoids and diverticulosis in the sigmoid colon. Will give 1U PRBCs now. Follow repeat H/H (to be done 1hr after transfusion is done). IV PPI BID transitioned to PPI drip for now. agree with jaymie -Adal Romero MD
[2025-01-30] MEDS ORDERED: SODIUM CHLORIDE 0.9% 100 ML IV PRN (15:24)
[2025-01-30] MEDS: OPTIRAY 320 100ml IV ONE (16:02)
--- NOTE | 2025-01-30 16:41 | CT Scan Report ---
Clinical History: Worsening anemia. Rule out retroperitoneal bleed Technique: Axial computed tomography images were obtained of the abdomen and pelvis both before and after the administration of intravenous contrast. No prior CT is available for comparison. Findings: The liver is overall of normal size, attenuation, and contour with no sign of cirrhosis or significant fatty infiltration. No liver mass lesion is seen. The portal vein is patent. The gallbladder appears unremarkable. No bile duct dilatation is noted. The spleen is of normal size. No focal splenic lesion is evident. The pancreas appears normal with no sign of acute or chronic pancreatitis and no mass lesion noted. The pancreatic duct is of normal caliber. The adrenal glands appear unremarkable. No renal or proximal ureteral calculi are seen. There is no hydronephrosis or perinephric stranding. No renal mass lesion is identified. There are left renal peripelvic cysts. The aorta is of normal caliber. No abdominal adenopathy is seen. The stomach there is constipation the colon appears unremarkable. The appendix appears normal also. No free intraperitoneal fluid or air is identified. There is excreted contrast within the urinary bladder on the precontrast images. No definite bladder mass lesion is evident. The iliac arteries are of normal caliber. No pelvic adenopathy is noted. There is a 1 cm round well marginated noncalcified nodule in the right lower lobe. Lumbar scoliosis and degenerative disc disease is seen. There is an L1 compression fracture, likely old. No focal osseous lesion is seen Impression: 1. Right lower lobe pulmonary nodule, indeterminate in nature. Chest CT is recommended for complete evaluation of the lungs. PET scan or biopsy may be needed 2. Left renal peripelvic cysts 3. No definite sign of hemorrhage in the abdomen and pelvis 4. Constipation 5. L1 compression fracture, likely old ACT 112: Positive. There are findings on this exam that require communication between the performing entity and the patient following Patient Test Result Information Act ([place] ACT 112) guidelines. Electronically signed by Dmitri Duke 01-30-2025 4:40 PM
[2025-01-30] MEDS: ACETAMINOPHEN 325 MG TAB PO ONE (16:44)
[2025-01-30] MEDS: diphenhydrAMINE Capsule 25 MG CAP PO ONE (16:44)
[2025-01-30] MEDS ORDERED: PHA DELIRIUM CONSULT PRN (17:12)
[2025-01-30] MEDS: PANTOprazole 40 MG in DEXTROSE 5% MINI-B 100 ML IV SCH (18:08)
[2025-01-30] MEDS: hydrOXYzine HCl 10 MG TAB PO STA (20:35)
[2025-01-30] MEDS: PRAVASTATIN SOD 20 MG TAB PO SCH (20:35)
[2025-01-30 21:59] LABS: Hematocrit (blood only) 27.4 % (37.0-47.0)
[2025-01-31] MEDS: cefTRIAXone SODIUM 2,000 MG/50 ML BAG IV SCH (05:46)
[2025-01-31 07:22] LABS: Hematocrit (blood only) 27.8 % (37.0-47.0); Hemoglobin 9.1 g/dl (12.0-16.0); Mean Corpuscular Hemoglobin 27.7 pg (25.0-34.0); Mean Corpuscular Hgb Conc 32.7 g/dL (32.0-36.0); Mean Corpuscular Volume 84.5 fL (80.0-100.0); Mean Platelet Volume 10.4 fL (9.4-12.4); Platelet Count 178 K/uL (130-400); RDW Coefficient of Variation 16.1 % (11.5-14.5); RDW Standard Deviation 50.3 fL (36.4-46.3); Red Blood Count 3.29 M/uL (4.20-5.40); White Blood Count 7.45 K/ul (4.8-10.8)
--- NOTE | 2025-01-31 07:31 | Hospitalist Progress Note ---
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 Suspect generalized weakness and overall physical deconditioning is multifactorial due to symptomatic anemia and UTI as per below. Significant decline in Hgb from 13.4 on 01/27 to 7.5 on 01/30. Suspected bleeding due to warfarin therapy causing acute anemia. Had a small bleeding wound on the posterior aspect of her LUE after she accidentally scratched this area on Monday. This wound was reportedly oozing from Monday up until Monday when she was previously seen in the ED. LUE wound without any evidence of bleeding this admission thus far. Patient on warfarin due to history of CVA over 10 years ago. No other reported episodes of bleeding. Did recheck CTAP on 01/30 which was NEGATIVE for any evidence of retroperitoneal bleeding. FOBT negative on 01/30. Now s/p 1U PRBCs on 01/30. Hgb slowly improving to 9.1 this morning. Will repeat H/H at 12P and 6P to monitor for any decline. Continue IV PPI drip for now. BP improving with IVF - will reduce infusion rate to 60cc/hr. Fall precautions, bedrest. Continue to hold warfarin and ASA. Follow repeat PT/INR testing. NPO for now pending GI evaluation for possible EGD and/or colonoscopic evaluation. (3) UTI (urinary tract infection): Plan: UA with evidence of infection given 1+ LE, 6-10 WBC and 4+ bacteria. Likely contributing to generalized weakness as per above. Continue IV Rocephin pending her urine culture results. (4) Delirium: Plan: Worsening delirium this morning. She did receive Benadryl yesterday prior to her blood transfusion. Also received a dose of Atarax last evening 2/2 anxiety. Suspect worsening delirium 2/2 to these medications. Patient is pleasantly co nfused upon examination but answering direct questions appropriately. + visual hallucinations which have been going on for >1 week but are now more frequent. Recognizes her daughter, Talya, at bedside. Continue with delirium prevention measures: raising blinds during the day, closing at night, frequent re-orientation, contact with family/friends, explaining procedures/nursing care measures prior to physical contact, correct any hearing and visual impairments. Avoid opioids, benzodiazepines, dihydropyridines and antihistamines as able as they increase the risk of causing/worsening delirium. (5) Occasional tremors: (6) History of seizure disorder: Plan: Daughter, Talya, reports that patient has intermittent BUE and BLE tremors at baseline. No reported seizure activity in over 10 years. Continue Keppra. Keppra level pending. (7) Elevated troponin: Plan: Likely demand ischemia 2/2 above. EKG without evidence of ST changes on admission. Troponin now flattened. (8) Abnormal CT of the abdomen: Plan: CTAP: Fullness centrally in both kidneys. Much of this appears to represent parapelvic cysts though it is difficult to exclude some degree of bilateral hydronephrosis without delayed images. There is no dilated ureter or urinary tract calculus. No other visually acute findings. Renal function remains stable. No evidence of JOANN. Did check renal/bladder US which redemonstrated cortical thinning of the kidneys and bilateral renal sinus cysts however there was no evidence of hydronephrosis. Continue to closely monitor renal function. (9) Pulmonary nodules: Plan: Incidental finding of two 11mm nodules in the R lung on CXR. Will need ou tpatient chest CT for further evaluation. CXR also noted mild peribronchial thickening of the central bronchi however patient is without any respiratory complaints. Suspect noninfectious etiology. Other Chronic Medical Conditions: HLD - Continue statin. DVT Prophylaxis: SCDs/TEDs only for now given anemia. DIRECTOR REGULATORY COMPLIANCE warfarin on hold as per above. Code Status: FULL CODE PCP: Carol Encarnacion PA-C Disposition: Discharge plans uncertain at this time. Patient lives at home alone. Obtain PT/OT evaluations as able. Updated patient's daughter, Talya, this morning at bedside on the above plan of care. She would like routine updates from providers. Patient seen in collaboration with Dr. Romero. Please see addendum. I spent a total of 56 minutes coordinating, documenting, and providing care for this patient excluding time spent in the performance of separately billed services or time spent by another provider/QHP. This included personally reviewing all current laboratories and imaging studies, medical reconciliation, outpatient chart review and discussion with specialists. This chart was completed in part utilizing Speech Voice Recognition Software. Grammatical errors, random word insertions, pronoun errors, and incomplete sentences are an occasional consequence of this system due to software limitations, ambient noise, and hardware issues. Any formal questions or concerns about the content, text, or information contained within the body of this dictation should be directly addressed to the provider for clarification. Admission and Anticipated Discharge Date Admission Date: January 30, 2025 Supervising Physician Co-Signing Physician Notes Attending Addendum: Case reviewed with the advanced practitioner. I have personally seen and examined patient at bedside I have reviewed the advanced practitioner's documentation on the date of service referenced in note, and I agree with, and take responsibility for the plan of care. please refer to her notes for full details patient seen and examined, records reviewed by myself as well all labs, imaging noted and reviewed ASSESSMENT AND PLAN diagnoses and plan of care as per advanced practitioner's notes I spent a total of 35 minutes coordinating, documenting, and providing care for this patient, excluding time spent in the performance of separately billed services or time spent by another provider/QHP. Adal Romero MD Subjective Patient seen and examined in room W262-2. Received 1U PRBCs yesterday evening 2/2 worsening anemia which she tolerated well and repeat CTAP did not reveal any evidence of retroperitoneal hemorrhage. Hgb slowly improving this morning. Currently NPO pending GI evaluation to determine if EGD and/or colonoscopic evaluation is warranted. Notably delirious this morning. Was alerted by nursing staff around 10AM that the patient was dropping beats on telemetry. Did obtain stat EKG which revealed NSR. Suspect false telemetry reading as patient was retching and vomiting during the time of her dropped beats. Possible vasovagal reaction. Patient also with significant BUE tremors which can be contributing to artifact on telemetry. Patient endorses some suprapubic tenderness but otherwise offers no aron complaints. On bedrest 2/2 hypotension which is improving with IVF. Daughter, Talya, at bedside. Updated her on the plans of care. Review of Systems Review of Systems: At least ten systems reviewed and negative, except as noted in the subjective section. Physical Exam Physical Exam: General/Neurologic: Elderly, F. NAD. Sitting up in bed. Delirious however does answer appropriately to direct questioning. + visual hallucinations. Daughter at bedside whom she is able to recognize. Does remember that she is in a hospital. Periods of forgetfulness. + pale coloration. HEENT: Normocephalic, atraumatic. Conjunctivae normal, anicteric sclerae. External ear and nose normal, oropharynx normal. Respiratory: Normal respiratory effort, lungs clear to auscultation bilaterally. Remains on room air. No accessory muscle use. Cardiovascular: Regular rate and rhythm. + systolic murmur. No BLE edema. Normal peripheral pulses. Abdomen/GI: Normal bowel sounds, soft, nondistended. TTP in the suprapubic region. Extremities/MSK: No cyanosis or clubbing. Actively moves all extremities. + bandaging overlying wound on posterior aspect of LUE which is C/D/I. No evidence of oozing or seeping. Has intermittent BUE and BLE tremors which her daughter, Talya, reports is chronic. No reported seizure activity in >10 years. Results & Data Results & Data Vital Signs (Past 12 Hours) Vital Signs Temp Pulse Pulse Pulse Resp BP BP 01/31/25 07:23 36.3 C L 85 18 140/80 01/31/25 04:00 36.6 C 85 18 138/84 01/30/25 23:55 36.6 C 88 18 120/70 01/30/25 21:45 83 01/30/25 20:04 01/30/25 19:55 36.4 C L 97 H 14 130/80 01/30/25 19:43 36.6 C 92 H 18 128/76 Pulse Ox O2 Del Method 01/31/25 07:23 98 Room Air 01/31/25 04:00 93 Room Air 01/30/25 23:55 95 Room Air 01/30/25 21:45 01/30/25 20:04 Room Air 01/30/25 19:55 97 01/30/25 19:43 96 Room Air Laboratory Results Short CBC 01/30/25 01/30/25 01/30/25 Range/Units 14:24 14:24 14:24 WBC (4.8-10.8) K/ul Hgb Cancelled 7.5 L Hct Cancelled 23.4 L Plt Count (130-400) K/uL 01/30/25 01/31/25 Range/Units 21:21 06:40 WBC 7.45 (4.8-10.8) K/ul Hgb 9.0 L 9.1 L Hct 27.4 L 27.8 L Plt Count 178 (130-400) K/uL BMP 01/31/25 06:40 Sodium 142 Potassium 3.6 Chloride 110 H Carbon Dioxide 27 BUN 11 D Creatinine 0.43 L Glucose 107 H Calcium 7.7 L Diagnostic Findings Chest X-Ray 01/29/25 20:54 CR Exam(s): XR CXR 1 VIEW EXAM: XR Chest, 1 View CLINICAL HISTORY: Reason for exam: weakness. TECHNIQUE: Frontal view of the chest. COMPARISON: No relevant prior studies available. FINDINGS: Lungs: Mild peribronchial thickening of the central bronchi. There is 11 mm nodular density in the right lower lobe and a likely 5 mm nodular density in the right upper lobe. No consolidation. Pleural space: Unremarkable. No pneumothorax. Heart: Unremarkable. No cardiomegaly. Mediastinum: Unremarkable. Normal mediastinal contour. Bones/joints: Unremarkable. No acute fracture. IMPRESSION: Bronchitis, which may be of infectious or inflammatory etiologies. There are two 11 mm nodules in the right lung. Recommend CT scan of the chest for further evaluation. Communications: Verify Receipt Electronically signed by: Kalyani Braun MD 01/29/25 23:[address] 01/29/25 23:18 Exam(s): CT HEAD Without Contrast EXAM: CT Head Without Intravenous Contrast CLINICAL HISTORY: Reason for exam: weakness. TECHNIQUE: Axial computed tomography images of the head/brain without intravenous contrast. CTDI is 37.51 mGy and DLP is 624.41 mGy-cm. Automated exposure control was utilized for the study. A dose lowering technique was utilized adhering to the principles of ALARA. COMPARISON: No relevant prior studies available. FINDINGS: Brain: There is a remote ischemic injury of the right frontal lobe with encephalomalacia and gliosis. No hemorrhage. No significant white matter disease. No edema. Ventricles: Mild ventriculomegaly. Bones/joints: Unremarkable. No acute fracture. Soft tissues: Unremarkable. Sinuses: Unremarkable as visualized. No acute sinusitis. Mastoid air cells: Unremarkable as visualized. No mastoid effusion. IMPRESSION: No evidence of acute intracranial pathology. Electronically signed by: Kalyani Braun MD 01/30/25 02:53 AM Abdomen/Pelvis CT 01/29/25 23:25 Exam(s): CT ABDOMEN + PELVIS With Contrast IV Amt: 93 ml opti 320 EXAM: CT Abdomen and Pelvis With Intravenous Contrast CLINICAL HISTORY: Reason for exam: abd pain, coumadin. TECHNIQUE: Axial computed tomography images of the abdomen and pelvis with intravenous contrast. CTDI is 18.38 mGy and DLP is 841.55 mGy-cm. Automated exposure control was utilized for the study. A dose lowering technique was utilized adhering to the principles of ALARA. CONTRAST: Patient received 93 ml opti 320 of IV contrast COMPARISON: No relevant prior studies available. FINDINGS: ABDOMEN: Liver: Unremarkable. No mass. Gallbladder and bile ducts: Unremarkable. No calcified stones. No ductal dilation. Pancreas: Unremarkable. No mass. No ductal dilation. Spleen: Unremarkable. No splenomegaly. Adrenals: Unremarkable. No mass. Kidneys and ureters: Fullness bilaterally in the central portions of both kidneys. Much of this may represent clusters of parapelvic cysts; however, at least mild bilateral hydronephrosis is difficult to exclude without delayed images. There is no dilated ureter. There is no urinary tract calculus. Stomach and bowel: Generalized increase in stool within the mid to distal colon. No obstruction. No mucosal thickening. PELVIS: Appendix: No findings to suggest acute appendicitis. Bladder: Unremarkable. No mass. Reproductive: Hysterectomy. ABDOMEN and PELVIS: Intraperitoneal space: Unremarkable. No free air. No significant fluid collection. Bones/joints: No acute findings. Soft tissues: Unremarkable. Vasculature: Extensive atherosclerotic calcification of the aorta and its major branches.. No abdominal aortic aneurysm. Lymph nodes: Unremarkable. No enlarged lymph nodes. IMPRESSION: Fullness centrally in both kidneys. Much of this appears to represent parapelvic cysts though it is difficult to exclude some degree of bilateral hydronephrosis without delayed images. There is no dilated ureter or urinary tract calculus. No other visually acute findings. Electronically signed by: Mukund Hedrick MD 01/30/25 01:43 AM Renal Ultrasound 01/30/25 09:15 RENAL ULTRASOUND HISTORY: Bilateral flank pain with urinary tract infection UTI, possible hydronephrosis COMPARISON: CT abdomen and pelvis 01/30/2020 FINDINGS: Right kidney: 9.5 cm. Renal sinus cysts redemonstrated. No hydronephrosis. 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 Mild cortical thinning again noted. Left kidney: 8.5 cm. No hydronephrosis. Mild cortical thinning again noted. The left kidney is partially obscured by bowel gas. Renal sinuses are better seen on the prior study. Bladder: No bladder wall thickening. Only the left ureteral jet is seen. IMPRESSION: 1. Cortical thinning of the kidneys redemonstrated without hydronephrosis. 2. 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 ACT 112: Negative or not required by law. Electronically signed by: Demond Coleman M.D. 01/30/2025 10:38 AM Abdomen/Pelvis CT 01/30/25 15:05 Clinical History: Worsening anemia. Rule out retroperitoneal bleed Technique: Axial computed tomography images were obtained of the abdomen and pelvis both before and after the administration of intravenous contrast. No prior CT is available for comparison. Findings: The liver is overall of normal size, attenuation, and contour with no sign of cirrhosis or significant fatty infiltration. No liver mass lesion is seen. The portal vein is patent. The gallbladder appears unremarkable. No bile duct dilatation is noted. The spleen is of normal size. No focal splenic lesion is evident. The pancreas appears normal with no sign of acute or chronic pancreatitis and no mass lesion noted. The pancreatic duct is of normal caliber. The adrenal glands appear unremarkable. No renal or proximal ureteral calculi are seen. There is no hydronephrosis or perinephric stranding. No renal mass lesion is identified. There are left renal peripelvic cysts. The aorta is of normal caliber. No abdominal adenopathy is seen. The stomach there is constipation the colon appears unremarkable. The appendix appears normal also. No free intraperitoneal fluid or air is identified. There is excreted contrast within the urinary bladder on the precontrast images. No definite bladder mass lesion is evident. The iliac arteries are of normal caliber. No pelvic adenopathy is noted. There is a 1 cm round well marginated noncalcified nodule in the right lower lobe. Lumbar scoliosis and degenerative disc disease is seen. There is an L1 compression fracture, likely old. No focal osseous lesion is seen Impression: 1. Right lower lobe pulmonary nodule, indeterminate in nature. Chest CT is recommended for complete evaluation of the lungs. PET scan or biopsy may be needed 2. Left renal peripelvic cysts 3. No definite sign of hemorrhage in the abdomen and pelvis 4. Constipation 5. L1 compression fracture, likely old ACT 112: Positive. There are findings on this exam that require communication between the performing entity and the patient following Patient Test Result Information Act ([place] ACT 112) guidelines. Electronically signed by Dmitri Duke 01-30-2025 4:40 PM (3) UTI (urinary tract infection) Hematuria presence: without hematuria Urinary tract infection type: site unspecified Qualified Code(s): N39.0 - Urinary tract infection, site not specified
[2025-01-31 07:42] LABS: BUN Creatinine Ratio 25.6 (10-20); Calcium 7.7 mg/dl (8.6-10.3); Creatinine Clr Calc Pharmacy 82.9 ml/min; Magnesium 1.8 mg/dl (1.7-2.4); Potassium 3.6 mmol/L (3.5-5.1)
--- NOTE | 2025-01-31 09:45 | Gastrointestinal Consultation ---
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 There is documentation of a black, heme negative stool yesterday. No further BMs reported. Will discuss with attending as there has been no signs of acute GI bleeding. I discussed the potential of a diagnostic EGD with patient but she was unsure how she would want to proceed. Will attempt to contact family. Trend HGB. Monitor and document GI output. Transfuse PRN per primary team. Continue IV PPI BID. Thank you for allowing us to participate in the care of this patient. Please call with any acute changes, questions or concerns. Please see addendum below with additional recommendation from my supervising physician. I spent a total of 60 minutes on the date of service in review of patient's record, and previously obtained information in person and appropriate medical visit, discussion and education of plan, with patient and/or caregiver, placing orders for tests/referral/procedures as medically necessary and documentation of pertinent clinical information in patient's medical records for their visit today. Case was discussed w/ daughter at bedside who is requesting conservative measure and request to defer EGD. She notes if her mother develops acute GI bleeding she would reconsider. Discussed with Melina's nurse, Abigail, who notes she had a bowel movement this AM which was not black and was not bloody. Continue PPI. Supervising Physician Co-Signing Physician Notes I saw and examined this patient with our nurse practitioner and agree with her assessment and plan. No signs of overt GI bleeding to explain her drop in hemoglobin. She did apparently have a cutaneous abrasion that was bleeding significantly based on family story over the last several days which may have contributed to it. Family reluctant to pursue any endoscopic intervention which is reasonable unless we document any significant GI blood loss. 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 Pt was see and evaluated, chart reviewed. She is a poor historian. Her concern this AM is back pain. Denies abd pain. No nausea/vomiting. There is report of bowel movement yesterday which was documented as black. The stool was heme negative. No BMs documented since 01/30/25. There was report of a wound bleeding on her arm which has since resolved. HGB 13.4 --> 9.2 --> 7.5 --> 1 unit RBCs --> 9.1 Colonoscopy 2023: - One 5 mm polyp in the descending colon, removed with a hot snare. Resected and retrieved. - Non-bleeding internal hemorrhoids. - Diverticulosis in the sigmoid colon. Allergies Allergy/AdvReac Type Severity Reaction Status Date / Time azithromycin Allergy Mild Unknown Verified 01/30/25 00:47 [From Zithromax Z-Moe] meperidine [From Demerol] Allergy Mild Unknown Verified 01/30/25 00:47 Penicillins Allergy Mild Unknown Verified 01/30/25 00:47 Sulfa (Sulfonamide Allergy Mild Unknown Verified 01/30/25 00:47 Antibiotics) Home Medications Medication Instructions Recorded Confirmed Type aspirin 81 mg capsule 81 mg PO QAM 01/29/24 01/30/25 History calcium carbonate 500 mg PO QAM 01/29/24 01/30/25 History aufvninjhmfx-zsijnafy-xosrwe tablet 1 tab PO QAM 01/29/24 01/30/25 History pravastatin 20 mg tablet 20 mg PO HS 01/29/24 01/30/25 History vit C 250 mg-vit E 90 mg-zinc 40 1 tab PO BID 01/29/24 01/30/25 History mg-copper 1 dy-cxyepf-qhkpih capsule (PreserVision AREDS-2) vitamin B12 0.5 mg-folic acid 1 mg 1 tab PO WK 01/29/24 01/30/25 History tablet warfarin 6 mg tablet 6 mg PO 6XWK 01/29/24 01/30/25 History peg 3350-electrolytes 236 240 ml PO Q10M #4,000 mL 02/01/24 01/30/25 Rx gram-22.74 gram-6.74 gram-5.86 gram solution (GaviLyte-G) cholecalciferol (vitamin D3) 10 400 unit PO DAILY 01/30/25 01/30/25 History mcg (400 unit) tablet docusate sodium 100 mg capsule 100 mg PO Q2D 01/30/25 01/30/25 History famotidine 40 mg tablet 40 mg PO DAILY 01/30/25 01/30/25 History levetiracetam 750 mg tablet 750 mg PO BID 01/30/25 01/30/25 History warfarin 6 mg tablet 3 mg PO WK 01/30/25 01/30/25 History Patient History Medical History Hx of basal cell carcinoma History of anesthesia reaction hypersensitive to all narcotics and anesthesia, difficulty waking, also had colonoscopy in the past where she was aware & in pain during procedure Hx of colonic polyp Hypercholesteremia Chronic back pain hx fractured spine age 32's Scoliosis History of stroke x 7, started in 2004, No Neuro at present, no deficits, daily coumadin Seizure disorder (~2018) only x 1, thought stroke, but ruled out, no longer sees Neuro, on Keppra GERD (gastroesophageal reflux disease) Blind right eye Macular degeneration Surgical History Hx of basal cell carcinoma excision Hx of melanoma excision Hx of colonoscopy with polypectomy History of surgery on wrist right Hx of hysterectomy Hx of total knee replacement right Social History Smoking Status: Former smoker Tobacco Type: Cigarettes Cigarettes Per Day: 1 PPD; Smoking End Date: >50 yrs ago; Second Hand Exposure: No; Do You Dip or Chew Tobacco: No; Hx Alcohol Use: No Hx Substance Use: No Preferred Language: Belarusian Communication Ability: Effective Reference Data Expert Required: No Beliefs That Will Affect Care: None Current Living Situation: Alone Feels Safe at Home: Yes Assistive Devices: Cane and Glasses Review of Systems Review of Systems: All other findings negative except as noted in HPI. Physical Exam Constitutional: WD/WN, vitals as above Respiratory: normal respiratory effort, lungs clear to auscultation Cardiovascular: Rate/Rhythm: regular rate Gastrointestinal (Abdomen): normal bowel sounds, soft, nontender, no hepatosplenomegaly Skin: no rashes, warm and dry Results & Data Vital Signs (Past 12 Hours) Vital Signs Temp Pulse Pulse Pulse Resp BP Pulse Ox 01/31/25 07:23 97.3 F L 85 18 140/80 98 01/31/25 04:00 97.9 F 85 18 138/84 93 01/30/25 23:55 97.9 F 88 18 120/70 95 01/30/25 21:45 83 O2 Del Method 01/31/25 07:23 Room Air 01/31/25 04:00 Room Air 01/30/25 23:55 Room Air 01/30/25 21:45 Laboratory Results 01/31/25 01/30/25 01/30/25 Range/Units 06:40 Unknown 21:21 WBC 7.45 (4.8-10.8) K/ul RBC 3.29 L (4.20-5.40) M/uL Hgb 9.1 L 9.0 L Hct 27.8 L 27.4 L MCV 84.5 (80.0-100.0) fL MCH 27.7 (25.0-34.0) pg MCHC 32.7 (32.0-36.0) g/dL RDW Std Deviation 50.3 H (36.4-46.3) fL RDW Coeff of Roge 16.1 H (11.5-14.5) % Plt Count 178 (130-400) K/uL MPV 10.4 (9.4-12.4) fL Sodium 142 (136-145) mmol/L Potassium 3.6 (3.5-5.1) mmol/L Chloride 110 H (98-107) mmol/L Carbon Dioxide 27 (21-32) mmol/L Anion Gap 5 (3-11) BUN 11 D (6-23) mg/dl Creatinine 0.43 L (0.6-1.2) mg/dl Est Cr Clr Drug Dosing 82.9 ml/min eGFR 94.08 BUN/Creatinine Ratio 25.6 H (10-20) Glucose 107 H (70-99(Fasting)) mg/dl Calcium 7.7 L (8.6-10.3) mg/dl Magnesium 1.8 (1.7-2.4) mg/dl Transferrin (200-360) mg/dl Ferritin (8-388) ng/ml Folate (>5.38) ng/ml Stool Occult Bld Scrn Negative (Negative) Levetiracetam Blood Type Blood Type Recheck Antibody Screen Crossmatch 01/30/25 01/30/25 01/30/25 Range/Units 14:24 14:24 14:24 WBC (4.8-10.8) K/ul RBC (4.20-5.40) M/uL Hgb 7.5 L Cancelled Hct 23.4 L Cancelled MCV (80.0-100.0) fL MCH (25.0-34.0) pg MCHC (32.0-36.0) g/dL RDW Std Deviation (36.4-46.3) fL RDW Coeff of Roge (11.5-14.5) % Plt Count (130-400) K/uL MPV (9.4-12.4) fL Sodium (136-145) mmol/L Potassium (3.5-5.1) mmol/L Chloride (98-107) mmol/L Carbon Dioxide (21-32) mmol/L Anion Gap (3-11) BUN (6-23) mg/dl Creatinine (0.6-1.2) mg/dl Est Cr Clr Drug Dosing ml/min eGFR BUN/Creatinine Ratio (10-20) Glucose (70-99(Fasting)) mg/dl Calcium (8.6-10.3) mg/dl Magnesium (1.7-2.4) mg/dl Transferrin 188 L (200-360) mg/dl Ferritin 10.3 (8-388) ng/ml Folate > 22.30 (>5.38) ng/ml Stool Occult Bld Scrn (Negative) Levetiracetam Pending Blood Type Blood Type Recheck A Positive Antibody Screen Crossmatch 01/30/25 Range/Units 00:47 WBC (4.8-10.8) K/ul RBC (4.20-5.40) M/uL Hgb Hct MCV (80.0-100.0) fL MCH (25.0-34.0) pg MCHC (32.0-36.0) g/dL RDW Std Deviation (36.4-46.3) fL RDW Coeff of Roge (11.5-14.5) % Plt Count (130-400) K/uL MPV (9.4-12.4) fL Sodium (136-145) mmol/L Potassium (3.5-5.1) mmol/L Chloride (98-107) mmol/L Carbon Dioxide (21-32) mmol/L Anion Gap (3-11) BUN (6-23) mg/dl Creatinine (0.6-1.2) mg/dl Est Cr Clr Drug Dosing ml/min eGFR BUN/Creatinine Ratio (10-20) Glucose (70-99(Fasting)) mg/dl Calcium (8.6-10.3) mg/dl Magnesium (1.7-2.4) mg/dl Transferrin (200-360) mg/dl Ferritin (8-388) ng/ml Folate (>5.38) ng/ml Stool Occult Bld Scrn (Negative) Levetiracetam Blood Type A Positive Blood Type Recheck Antibody Screen NEGATIVE Crossmatch See Detail PG Care Time/CCT Total # of Minutes Spent Total Time Spent with Patient: Total time spent is greater than 50% in coordination of care (as documented) at patient's floor/unit and/or counseling patient: Coding Level of Care Code 66702 INT INP/OBS CARE 2/55MIN Diagnoses Anemia D64.9
[2025-01-31] MEDS: ONDANSETRON INJ 2 MG/ML 2 ML VIAL IV PRN (12:34)
[2025-01-31 13:06] LABS: Hematocrit (blood only) 30.5 % (37.0-47.0); Hemoglobin 9.9 g/dl (12.0-16.0)
--- NOTE | 2025-01-31 16:17 | Communication Note ---
Date of Service: January 31, 2025 Discussed case with GI VARSHA via TT. No signs of overt GI bleeding to explain her worsening anemia. Will hold off on pursuing EGD evaluation for now unless her anemia worsen per her daughter, Talya's, request.
[2025-01-31] MEDS ORDERED: PHA DELIRIUM CONSULT PRN (17:22)
--- NOTE | 2025-01-31 20:23 | Communication Note ---
Date of Service: January 31, 2025 8 PM Patient noted to be flaccid and unresponsive. No overt seizures. Last known to be well around 7 PM as per RN. BSG 130s. PPE Unresponsive No obvious facial asymmetry Flaccid extremities NIHSS score 24 Stroke alert called INR 1.1 CT head: No acute intracranial pathology noted. Remote infarction with encephalomalacia in the right MCA territory. Chronic involutional and ischemic changes of the brain CTA head: No large vessel occlusion, significant stenosis or aneurysm demonstrated. . CTA neck: Calcified atheromatous plaques of the bilateral carotid bulbs and proximal internal carotid arteries with up to 50% luminal narrowing as described above. No hemodynamically significant stenosis, aneurysm or acute pathology demonstrated. A 1.7 x 1.1 cm suspicious solid pulmonary nodule seen in the left upper lobe. Correlation with chest CT, PET/CT scan/biopsy recommended. Nonspecific 1.4 x 1.2 cm complex left thyroid nodule. Sonographic correlation is advised. Degenerative cervical spondylosis with C4 mild anterolisthesis.. Dr. Mora (telestroke specialist) recommended repeating CT of the head prior to TNK administration given stroke severity. CT head repeat Demonstrates in the interim a 1.5 x 0.7 cm extra-axial hyperdensity/focal subdural hemorrhage with likely associated regional subarachnoid hemorrhage. AP ICH Patient later on noted to be more awake. Dr. Mora recommends additional Keppra dose and EEG in a.m. given possible seizures as explanation for unresponsiveness. Patient refused neurosurgical opinion/intervention. Family concurs. CODE STATUS de-escalated to DNR. Repeat CT head after 6 hours. Patient and family agreeable to comfort measures if with progression and further clinical deterioration. Neurology consult in a.m. if ICH stable on repeat CT head.
[2025-01-31 20:59] LABS: Basophils # (auto) 0.02 K/uL (0.00-0.20); Basophils % (auto) 0.3 %; Eosinophils # (auto) 0.03 K/uL (0.00-0.50); Eosinophils % (auto) 0.4 %; Hematocrit (blood only) 27.6 % (37.0-47.0); Hemoglobin 8.9 g/dl (12.0-16.0); Immature Granulocytes # (auto) 0.04 K/uL (0.01-0.20); Immature Granulocytes % (auto) 0.6 %; Lymphocytes # (auto) 1.59 K/uL (1.20-3.40); Lymphocytes % (auto) 22.2 %; Mean Corpuscular Hemoglobin 27.2 pg (25.0-34.0); Mean Corpuscular Hgb Conc 32.2 g/dL (32.0-36.0); Mean Corpuscular Volume 84.4 fL (80.0-100.0); Mean Platelet Volume 10.2 fL (9.4-12.4); Monocytes # (auto) 0.72 K/uL (0.11-0.59); Neutrophils # (auto) 4.77 K/uL (1.40-6.50); Neutrophils % (auto) 66.5 %; Platelet Count 172 K/uL (130-400); RDW Standard Deviation 49.8 fL (36.4-46.3); Red Blood Count 3.27 M/uL (4.20-5.40); White Blood Count 7.17 K/ul (4.8-10.8)
[2025-01-31 21:16] LABS: Albumin Globulin Ratio 1.6 (0.9-2); BUN Creatinine Ratio 15.6 (10-20); Bilirubin,Total 0.4 mg/dl (0.2-1.0); Calcium 7.7 mg/dl (8.6-10.3); Creatinine Clr Calc Pharmacy 79.3 ml/min; Globulin 1.9 gm/dl (2.5-4.0); Magnesium 1.7 mg/dl (1.7-2.4); Potassium 3.3 mmol/L (3.5-5.1); Total Protein 4.9 gm/dl (6.0-8.3)
--- NOTE | 2025-01-31 21:16 | CT Scan Report ---
Exam(s): CTA HEAD With Contrast IV Amt: 112 ml optiray 320 EXAM: CT Angiography Head With Intravenous Contrast CLINICAL HISTORY: Reason for exam: neuro deficit, acute stroke suspected. TECHNIQUE: Axial computed tomographic angiography images of the head with intravenous contrast. CTDI is 38.31 mGy and DLP is 624.41 mGy-cm. Automated exposure control was utilized for the study. A dose lowering technique was utilized adhering to the principles of ALARA. MIP reconstructed images were created and reviewed. CONTRAST: Patient received 112 ml optiray 320 of IV contrast COMPARISON: CT brain: 01/31/2025 and 01/29/2025 FINDINGS: Right internal carotid artery: Calcified plaques of the cavernous ICA. No acute findings. Intracranial segment is patent with no significant stenosis. No aneurysm. Right anterior cerebral artery: No occlusion or significant stenosis. No aneurysm. Right middle cerebral artery: No occlusion or significant stenosis. No aneurysm. Right posterior cerebral artery: No occlusion or significant stenosis. No aneurysm. Right vertebral artery: Unremarkable as visualized. Left internal carotid artery: Atheromatous calcified plaques of the cavernous ICA. No acute findings. Intracranial segment is patent with no significant stenosis. No aneurysm. Left anterior cerebral artery: No occlusion or significant stenosis. No aneurysm. Left middle cerebral artery: Moderate grade stenosis of the M2/M3 segments. No occlusion or significant stenosis. No aneurysm. Left posterior cerebral artery: No occlusion or significant stenosis. No aneurysm. Left vertebral artery: Dominant. Unremarkable as visualized. Basilar artery: Unremarkable. No occlusion or significant stenosis. No aneurysm. Other findings: Remote infarct with encephalomalacia posteriorly in the right frontal lobe. . IMPRESSION: CTA head: No large vessel occlusion, significant stenosis or aneurysm demonstrated. . Communications: Call Doctor Stroke Electronically signed by: Zoltan Campo MD, DABR 01/31/25 21:15 PM
[2025-01-31 21:22] LABS: Troponin I High Sensitivity 18.7 pg/ml (0-14)
--- NOTE | 2025-01-31 21:27 | CT Scan Report ---
Exam(s): CT HEAD Without Contrast EXAM: CT Head Without Intravenous Contrast CLINICAL HISTORY: Reason for exam: neuro deficit, acute stroke suspected. TECHNIQUE: Axial computed tomography images of the head/brain without intravenous contrast. CTDI is 38.31 mGy and DLP is 624.41 mGy-cm. Automated exposure control was utilized for the study. A dose lowering technique was utilized adhering to the principles of ALARA. COMPARISON: CT head: 01/29/2025 FINDINGS: Motion-induced image degradation limits anatomical details. Brain: Again noted an old infarct with encephalomalacia posteriorly in the right frontal lobe and in the right caudate lobe//putamen.. There is no acute intracranial hemorrhage, mass-effect or midline shift of structures. Age-related cerebral atrophy with widening of the extra-axial spaces and ventricular dilatation. Periventricular/subcortical areas with decreased density in the white matter most likely related to chronic microvascular disease. Bones/joints: Unremarkable. No acute fracture. Soft tissues: Unremarkable. Calcified atherosclerosis of the bilateral cavernous ICAs. Sinuses: No active disease in the sinuses and mastoids. IMPRESSION: No acute intracranial pathology noted. Remote infarction with encephalomalacia in the right MCA territory. Chronic involutional and ischemic changes of the brain. . Communications: Call Doctor Stroke Electronically signed by: Zoltan Campo MD, DABR 01/31/25 21:26 PM
[2025-01-31 21:28] LABS: INR 1.1 (0.9-1.1); Partial Thromboplastin Time 26 Seconds (21-31); Prothrombin Time 11.9 Seconds (9.0-12.0)
--- NOTE | 2025-01-31 21:50 | CT Scan Report ---
Exam(s): CTA NECK With Contrast IV Amt: 112 ml optiray 320 EXAM: CT Angiography Neck With Intravenous Contrast CLINICAL HISTORY: Reason for exam: neuro deficit, acute stroke suspected. TECHNIQUE: Routine carotid CT angiography protocol was performed with intravenous contrast. NASCET criteria using the distal ICAs for comparison were used for evaluation of stenoses. CTDI is 16.61 mGy and DLP is 432.54 mGy-cm. Automated exposure control was utilized for the study. A dose lowering technique was utilized adhering to the principles of ALARA. MIP reconstructed images were created and reviewed. CONTRAST: Patient received 112 ml optiray 320 of IV contrast COMPARISON: None. 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 Calcified atheromatous plaques of the aortic arch/descending aorta. Right common carotid artery: Proximally atheromatous calcified plaques. Tortuosity/elongation. No occlusion or significant stenosis. No dissection. Right carotid bulb: Calcified plaques with< 50% luminal narrowing. Right extracranial internal carotid artery: Proximally calcified plaques with <50% luminal narrowing. No occlusion or high-grade stenosis. No dissection. Right external carotid artery: Unremarkable. No occlusion. Right vertebral artery: Unremarkable. No occlusion or significant stenosis. No dissection. Left common carotid artery: Unremarkable. No occlusion or significant stenosis. No dissection. Left carotid bulb: Bulky calcified atherosclerotic plaques with 50% stenosis Left extracranial internal carotid artery: Proximally calcified like with 50% luminal narrowing. No occlusion or hemodynamically significant stenosis. No dissection. Left external carotid artery: Unremarkable. No occlusion. Left vertebral artery: Unremarkable. No occlusion or significant stenosis. No dissection. NECK: Bones/joints: No acute fracture. Mild C4 vertebral anterolisthesis. Multilevel moderate degenerative spondylitic changes. Soft tissues: Unremarkable. Lung apices: In the right upper lobe a 1.7 x 1.1 cm solid nodule is seen, suspicious of malignancy (series 7 image 81). Significant biapical pleural parenchymal scarring. Other findings: . A 1.4 x 1.2 cm complex hypodense left thyroid nodule (series 7 image 154). Sonographic correlation is advised. CAROTID STENOSIS REFERENCE USING NASCET CRITERIA: % ICA stenosis = (1 - narrowest ICA diameter/diameter of distal cervical ICA) x 100. Mild - <50% stenosis. Moderate - 50-69% stenosis. Severe - 70-94% stenosis. Near occlusion - 95-99% stenosis. Occluded - 100% stenosis. IMPRESSION: CTA neck: Calcified atheromatous plaques of the bilateral carotid bulbs and proximal internal carotid arteries with up to 50% luminal narrowing as described above. No hemodynamically significant stenosis, aneurysm or acute pathology demonstrated. A 1.7 x 1.1 cm suspicious solid pulmonary nodule seen in the left upper lobe. Correlation with chest CT, PET/CT scan/biopsy recommended. Nonspecific 1.4 x 1.2 cm complex left thyroid nodule. Sonographic correlation is advised. Degenerative cervical spondylosis with C4 mild anterolisthesis.. Communications: Call Doctor Stroke Electronically signed by: Zoltan Campo MD, DABR 01/31/25 21:48 PM
--- NOTE | 2025-01-31 22:37 | CT Scan Report ---
Exam(s): CT HEAD Without Contrast EXAM: CT Head Without Intravenous Contrast CLINICAL HISTORY: Reason for exam: stroke, ffup critical. TECHNIQUE: Axial computed tomography images of the head/brain without intravenous contrast. CTDI is 35.65 mGy and DLP is 547.75 mGy-cm. Automated exposure control was utilized for the study. A dose lowering technique was utilized adhering to the principles of ALARA. COMPARISON: CT head: 01/31/2025 by 2023 hrs. FINDINGS: Image quality is hampered by motion artifact. Brain: Demonstrates in the interim a 1.5 x 0.7 cm focal hyperdensity extra-axially, laterally along the right frontal lobe with associated high density changes in the adjacent subarachnoid regions (series 2 image 15, 16), and laterally adjacent to the right frontal lobe area with encephalomalacia/gliosis. Age related cerebral atrophy with widening of the extra-axial spaces and ventricular dilatation. Periventricular areas of decreased attenuation within the white matter tracts likely from chronic microvascular disease. Bones/joints: No acute fracture. Soft tissues: Unremarkable. Sinuses: No active disease is evident in the visualized sinuses and mastoid air cells. IMPRESSION: Demonstrates in the interim a 1.5 x 0.7 cm extra-axial hyperdensity/focal subdural hemorrhage with likely associated regional subarachnoid hemorrhage. Otherwise findings are unchanged since resent today's CT head exam. . Communications: Call Doctor Intracranial Hemorrhage Electronically signed by: Zoltan Campo MD, DABR 01/31/25 22:37 PM
[2025-01-31] MEDS: POTASSIUM CHLORIDE / WTR 10 MEQ/100 ML PLCT IV SCH (22:49)
[2025-01-31] MEDS: MAGNESIUM SULFATE / D5W 1 GM/100 ML BAG IV SCH (22:49)
[2025-01-31] MEDS: METOPROLOL TARTRATE 1 MG/ML VIAL IV STA (22:58)
[2025-01-31] MEDS ORDERED: METOPROLOL TARTRATE 1 MG/ML VIAL IV PRN (23:37)
[2025-02-01] MEDS: METOPROLOL TARTRATE 1 MG/ML VIAL IV ONE (00:10)
[2025-02-01] MEDS: levETIRAcetam 500 MG/5 ML VIAL IV STA (00:11)
--- NOTE | 2025-02-01 00:15 | Electrocardiogram Report ---
Test Reason : Blood Pressure : */* mmHG Vent. Rate : 75 BPM Atrial Rate : 75 BPM P-R Int : 208 ms QRS Dur : 102 ms QT Int : 400 ms P-R-T Axes : 62 34 72 degrees QTcB Int : 446 ms Normal sinus rhythm Nonspecific ST and T wave abnormality Abnormal ECG When compared with ECG of 29-Jan-2025 20:43, Nonspecific T wave abnormality no longer evident in Inferior leads Nonspecific T wave abnormality no longer evident in Anterior leads Confirmed by Mert Blackwell ([id number]) on 02/01/2025 12:14:47 AM Referred By: REFERRED SELF Confirmed By: Mert Blackwell
[2025-02-01] MEDS ORDERED: ATROPINE SULFATE 0.1 MG/ML 10ML SYR IV PRN (01:33)
[2025-02-01] MEDS: hydrALAZINE HCL 20 MG/ML VIAL IV PRN (02:14)
[2025-02-01] MEDS: PROMETHAZINE 6.25 MG/50.25 ML BAG IV PRN (02:37)
--- NOTE | 2025-02-01 03:57 | CT Scan Report ---
EXAM: CT head/brain wo con CLINICAL HISTORY: Dizziness, itch. TECHNIQUE: Axial non-contrast CT scan of the brain was performed from the skull base to the high parietal region. One of the following dose reduction techniques were utilized for this exam: Automated exposure control, adjustment of the mA and/or kV according to patient size, use of iterative reconstruction. COMPARISON: No available prior studies for comparison. FINDINGS: Brain Parenchyma: A hypodensity is seen implicating the right insular cortex and subcortical white matter, as well as the lateral aspect of the right high frontal lobe (part of the right MCA territory). Chronic microvascular ischemic changes. No evidence of related hemorrhagic changes. Ventricular System: Mildly dilated ventricular system, part of age-related involutional changes. Subarachnoid Spaces: Mildly enlarged ventricular system with deepened sulci. Cerebellum and Brainstem: Normal size and signal. No masses, lesions, or areas of abnormal density. Orbits: Normal appearance of the globes, optic nerves, and extraocular muscles. No evidence of orbital masses or abnormal density. Sinuses: Clear paranasal sinuses. No evidence of sinusitis or mucosal thickening. Mastoid Air Cells: Clear mastoid air cells. No evidence of mastoiditis. Skull: Normal skull morphology. IMPRESSION: 1. 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 Need clinical correlation. 2. Chronic microvascular ischemic changes. 3. Age-matched involutional brain changes. 4. Early changes of a stroke may not be detected on a CT scan. If strong clinical suspicion of stroke, then suggest MRI with diffusion-weighted imaging. Electronically signed by Arnoldo Ibarra 02-01-2025 03:56 AM
[2025-02-01 06:01] LABS: Hematocrit (blood only) 30.4 % (37.0-47.0); Hemoglobin 10.2 g/dl (12.0-16.0); Mean Corpuscular Hemoglobin 27.8 pg (25.0-34.0); Mean Corpuscular Hgb Conc 33.6 g/dL (32.0-36.0); Mean Corpuscular Volume 82.8 fL (80.0-100.0); Mean Platelet Volume 11.1 fL (9.4-12.4); Platelet Count 177 K/uL (130-400); RDW Coefficient of Variation 15.8 % (11.5-14.5); RDW Standard Deviation 47.3 fL (36.4-46.3); Red Blood Count 3.67 M/uL (4.20-5.40); White Blood Count 12.37 K/ul (4.8-10.8)
[2025-02-01 06:17] LABS: Calcium 8.2 mg/dl (8.6-10.3); Magnesium 2.3 mg/dl (1.7-2.4); Potassium 4.1 mmol/L (3.5-5.1)
[2025-02-01 06:28] LABS: BUN Creatinine Ratio 18.9 (10-20); Creatinine Clr Calc Pharmacy 96.4 ml/min
[2025-02-01] MEDS ORDERED: levETIRAcetam 250 MG TAB PO SCH (09:00)
[2025-02-01] MEDS ORDERED: Nursing to Pharmacy Communication SCH (09:30)
[2025-02-01] MEDS: levETIRAcetam 500 MG TAB PO SCH (10:11)
--- NOTE | 2025-02-01 10:38 | Hospitalist Progress Note ---
Date of Service February 01, 2025 Assessment & Plan (1) AMS (altered mental status): (2) Acute anemia: (3) Delirium: (4) Near syncope: Plan: #Dizziness #R/O Stroke #Possible seizure Melina Blankenship is an 89y/o F with PMHx significant for HLD, tubular adenoma of colon, bilateral hip arthritis, seizure disorder on Keppra, macular degeneration of both eyes, history of spinal fracture, spinal stenosis of lumbosacral region, history of CVA on Coumadin, intermittent BLE and BUE tremors per daughter and history of skin cancer who is admitted on 01/29/25 on our service for further evaluation of generalized weakness and near syncopal episode and reported visual hallucinations. Initial 01/29/25 CT Head: no acute intracranial abnormality Initial UA concern for suspected UTI Suspected worsening delirium throughout hospital course Ambulatory dysfunction and deconditioning thought multifactorial secondary to UTI and symptomatic anemia Last evening at 20:10 patient was reported to be found unresponsive to stimulation and sternal rub and code purple called and stroke alert called. BSG was 130's. INR was 1.[address] head at 20:23 with reported "Remote infarction with encephalomalacia in the right MCA territory. Chronic involutional and ischemic changes of the brain" CTA head: "No large vessel occlusion, significant stenosis or aneurysm demonstrated." CTA neck: "Calcified atheromatous plaques of the bilateral carotid bulbs and proximal internal carotid arteries with up to 50% luminal narrowing. No hemodynamically significant stenosis, aneurysm or acute pathology demonstrated." Repeat CT head at 21:50 reported to "demonstrate in the interim a 1.5 x 0.7 cm extra-axial hyperdensity/focal subdural hemorrhage with likely associated regional subarachnoid hemorrhage. Demonstrates in the interim a 1.5 x 0.7 cm extra-axial hyperdensity/focal subdural hemorrhage with likely associated regional subarachnoid hemorrhage." CT head at 02:02 reported "Right indeterminate age, likely chronic non- hemorrhagic ischemic insult, implicating the insular and high frontal region (MCA territory). Chronic microvascular ischemic changes. Age-matched involutional brain changes." Patient was given additional Keppra dose. Patient later became awake. Discussion with daughter and patient at that time and denied neurosurgical intervention Patient received IV Lopressor 2.5mg and hydralazine 5mg IV over night secondary to hypertension. Subsequent SBP in 90's and this morning improved to BP 114/60 at 07:41. Overnight had reported nausea, dizziness and Phenergan IV was given. DDx: stroke vs unwitnessed seizure with post-ictal state Less likely suspect ICH. I attempted to see if our radiologist in house could re-look at CT head films to give his/her opinion, unfortunately radiologist not available this weekend and unable to have [facility] radiologist re-read scans This morning patient is awake and alert to person and place. Is conversing with daughter at bedside and staff. Pt complains of dizziness sensation "bed is swaying" with associated nausea] Seizure precautions Obtain EEG MRI brain Home Keppra was changed from 750mg BID to 1000mg BID Will do trial of meclizine. Try to avoid Phenergan at this time to try to avoid further mental status changes/symptoms Neurology consult PT/OT eval. Possible Abelardo maneuver may be considered when further MRI imaging completed Continue with delirium prevention measures: raising blinds during the day, closing at night, frequent re-orientation, contact with family/friends, explaining procedures/nursing care measures prior to physical contact, correct any hearing and visual impairments. Fall precautions Continue home statin. Holding home aspirin and warfarin currently #Anemia During hospital course had noted downtrending Hgb: 13.4 on 01/27 to 7.5 on 01/30. Initially thought possible to bleeding/oozing wound of LUE. During hospital course wound without noted bleeding, and possible secondary to warfarin. Warfarin and aspirin have been on hold. 01/30/25 CT abd/pelvis negative for evidence of retroperitoneal bleeding. FOBT negative on 01/30. S/P 1U PRBCs on 01/30. Today Hgb:10.2 and improved Has been in PPI drip Patient and family denied EGD/colonoscopy No further signs of bleeding Will change PPI drip to PPI IV BID and monitor Advance diet as tolerated Continue hold aspirin and warfarin (5) UTI (urinary tract infection): Plan: Initial UA suggestive of infection given 1+ LE, 6-10 WBC and 4+ bacteria. On IV Rocephin. Will continue Urine culture pending (6) Occasional tremors: (7) History of seizure disorder: Plan: Daughter, Talya, reports that patient has intermittent BUE and BLE tremors at baseline. Maintained on Keppra 750mg BID at home With possible seizure last night additional keppra was given and pt now on Keppra 1000mg BID Keppra level pending. (8) Elevated troponin: Plan: Likely demand ischemia Troponins flat EKG without evidence of ST changes on admission (9) Abnormal CT of the abdomen: Plan: CTAP: Fullness centrally in both kidneys. Much of this appears to represent parapelvic cysts though it is difficult to exclude some degree of bilateral hydronephrosis without delayed images. There is no dilated ureter or urinary tract calculus. No other visually acute findings. Renal function remains stable. No evidence of JOANN. Did check renal/bladder US which redemonstrated cortical thinning of the kidneys and bilateral renal sinus cysts however there was no evidence of hydronephrosis. Continue to closely monitor renal function. (10) Pulmonary nodules: Plan: Incidental finding of two 11mm nodules in the R lung on CXR. Will need outpatient chest CT for further evaluation. CXR also noted mild peribronchial thickening of the central bronchi however patient is without any respiratory complaints. Suspect noninfectious etiology. #HLD Continue statin. DVT Prophylaxis: SCDs/TEDs for now Code Status: DNR/DNI PCP: Carol Encarnacion PA-C Disposition: Discharge plans uncertain at this time. Patient lives at home alone. Obtain PT/OT evaluations as able. Updated patient's daughter, Talya, this morning at bedside on the above plan of care. Patient seen in collaboration with Dr. Romero. Please see addendum. I spent a total of 65 minutes coordinating, documenting, and providing care for this patient excluding time spent in the performance of separately billed services or time spent by another provider/QHP. This included personally reviewing all current laboratories and imaging studies, medical reconciliation, outpatient chart review and discussion with specialists. Admission and Anticipated Discharge Date Admission Date: January 30, 2025 Supervising Physician Co-Signing Physician Notes Attending Addendum: Case reviewed with the advanced practitioner. I have reviewed the advanced practitioner's documentation on the date of service referenced in note, and I agree with, and take responsibility for the plan of care. please refer to her notes for full details patient seen and examined, records reviewed by myself as well diagnoses and plan of care as per advanced practitioner's notes I spent a total of 35 minutes coordinating, documenting, and providing care for this patient, excluding time spent in the performance of separately billed services or time spent by another provider/QHP. Adal Romero MD Subjective Last evening at 20:10 patient was reported to be found unresponsive to stimulation and sternal rub and code purple called and stroke alert called. BSG was 130's. INR was 1.[address] head at 20:23 with reported "Remote infarction with encephalomalacia in the right MCA territory. Chronic involutional and ischemic changes of the brain" CTA head: "No large vessel occlusion, significant stenosis or aneurysm demonstrated." CTA neck: "Calcified atheromatous plaques of the bilateral carotid bulbs and proximal internal carotid arteries with up to 50% luminal narrowing. No hemodynamically significant stenosis, aneurysm or acute pathology demonstrated." Repeat CT head at 21:50 reported to "demonstrate in the interim a 1.5 x 0.7 cm extra-axial hyperdensity/focal subdural hemorrhage with likely associated regional subarachnoid hemorrhage. Demonstrates in the interim a 1.5 x 0.7 cm extra-axial hyperdensity/focal subdural hemorrhage with likely associated regional subarachnoid hemorrhage." CT head at 02:02 reported "Right indeterminate age, likely chronic non- hemorrhagic ischemic insult, implicating the insular and high frontal region (MCA territory). Chronic microvascular ischemic changes. Age-matched involutional brain changes." Patient was given additional Keppra dose. Patient later became awake. Discussion with daughter and patient was that denied any neurosurgical intervention Patient received IV Lopressor 2.5mg and hydralazine 5mg IV over night secondary to hypertension. Subsequent SBP in 90's and this morning improved to BP 114/60 at 07:41. Overnight had reported nausea, dizziness and Phenergan IV was given. This morning patient seen and examined in Room 457-2. Daughter is at bedside. Patient sitting up in bed. Alert and oriented to person and place. Patient reports "feel like bed is moving and swaying" and is causing nausea. Denies VIZCAINO. 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 Denies any other visual disturbance. Patient states had BM yesterday. Denies fever/chills, diarrhea, VIZCAINO, syncope, neck pain, CP, SOB, palpitations, cough, sore throat, choking, rhinorrhea, abdominal pain, paresthesias, extremity edema, rashes, dysuria. Review of Systems Review of Systems: All systems reviewed & are unremarkable except as noted in HPI & below Physical Exam Physical Exam: General: no distress, WDWN Head: normocephalic, atraumatic Eyes: PERRL, EOM's intact, conjunctiva non-injected, anicteric ENT: normal inspection external ears, nose, mucous membranes moist Neck: supple, trachea midline Lungs: clear, no respiratory distress, no wheezing/rhonchi/rales CV: RRR, no pretibial edema Abd: normal BS, soft, non-tender Ext: no cyanosis, no calf tenderness Neuro: Alert, oriented to person, knows in hospital but unsure of name of facility, visual wilks appear intact. PERRL, EOMs intact. No nystagmus, Face is strong and symmetric, Hearing grossly intact, soft palate elevates symmetrically, no dysarthria noted, shoulder shrug intact, tongue is midline, normal movement, no fasciculations. Strength 4/5 bilateral upper and lower extremities Skin: warm, dry Results & Data Results & Data Vital Signs (Past 12 Hours) Vital Signs Temp Pulse Pulse Pulse Resp BP BP 02/01/25 07:41 36.6 C 83 20 114/66 02/01/25 07:00 83 16 115/68 02/01/25 06:30 75 100/62 02/01/25 06:00 79 94/58 L 02/01/25 05:43 02/01/25 05:30 71 99/63 L 02/01/25 05:00 81 125/75 02/01/25 04:30 36.9 C 83 17 115/72 02/01/25 04:00 36.6 C 81 18 127/71 02/01/25 03:21 80 129/71 02/01/25 02:30 36.7 C 76 18 124/76 02/01/25 02:00 36.4 C L 85 18 173/95 H 02/01/25 01:30 70 70 155/89 H 02/01/25 01:00 36.5 C 68 148/68 H 02/01/25 00:45 36.5 C 68 18 154/83 H 02/01/25 00:30 36.5 C 74 74 18 158/74 H 02/01/25 00:09 36.4 C L 69 69 18 179/81 H 01/31/25 23:56 72 01/31/25 23:13 73 169/94 H 01/31/25 23:11 37 C 80 18 177/99 H 01/31/25 22:58 81 190/94 H Pulse Ox O2 Del Method 02/01/25 07:41 94 Room Air 02/01/25 07:00 93 Room Air 02/01/25 06:30 Room Air 02/01/25 06:00 Room Air 02/01/25 05:43 Room Air 02/01/25 05:30 Room Air 02/01/25 05:00 Room Air 02/01/25 04:30 97 Room Air 02/01/25 04:00 95 Room Air 02/01/25 03:21 97 Room Air 02/01/25 02:30 94 Room Air 02/01/25 02:00 95 Room Air 02/01/25 01:30 95 Room Air 02/01/25 01:00 95 Room Air 02/01/25 00:45 96 Room Air 02/01/25 00:30 96 Room Air 02/01/25 00:09 96 Room Air 01/31/25 23:56 01/31/25 23:13 01/31/25 23:11 99 Room Air 01/31/25 22:58 Laboratory Results Short CBC 01/31/25 02/01/25 Range/Units 20:44 05:41 WBC 7.17 12.37 H (4.8-10.8) K/ul Hgb 8.9 L 10.2 L (12.0-16.0) g/dl Hct 27.6 L 30.4 L (37.0-47.0) % Plt Count 172 177 (130-400) K/uL BMP 01/31/25 02/01/25 20:44 05:41 Sodium 136 134 L Potassium 3.3 L 4.1 D Chloride 104 103 Carbon Dioxide 29 24 BUN 7 7 Creatinine 0.45 L 0.37 L Glucose 130 H 125 H Calcium 7.7 L 8.2 L Liver Function 01/31/25 Range/Units 20:44 Total Bilirubin 0.4 (0.2-1.0) mg/dl AST 18 (13-39) U/L ALT 16 (7-52) U/L Alkaline Phosphatase 63 (34-104) U/L Albumin 3.0 L (3.4-5.0) gm/dl Diagnostic Findings Head CT 02/01/25 02:02 EXAM: CT head/brain wo con CLINICAL HISTORY: Dizziness, itch. TECHNIQUE: Axial non-contrast CT scan of the brain was performed from the skull base to the high parietal region. One of the following dose reduction techniques were utilized for this exam: Automated exposure control, adjustment of the mA and/or kV according to patient size, use of iterative reconstruction. COMPARISON: No available prior studies for comparison. FINDINGS: Brain Parenchyma: A hypodensity is seen implicating the right insular cortex and subcortical white matter, as well as the lateral aspect of the right high frontal lobe (part of the right MCA territory). Chronic microvascular ischemic changes. No evidence of related hemorrhagic changes. Ventricular System: Mildly dilated ventricular system, part of age-related involutional changes. Subarachnoid Spaces: Mildly enlarged ventricular system with deepened sulci. Cerebellum and Brainstem: Normal size and signal. No masses, lesions, or areas of abnormal density. Orbits: Normal appearance of the globes, optic nerves, and extraocular muscles. No evidence of orbital masses or abnormal density. Sinuses: Clear paranasal sinuses. No evidence of sinusitis or mucosal thickening. Mastoid Air Cells: Clear mastoid air cells. No evidence of mastoiditis. Skull: Normal skull morphology. IMPRESSION: 1. 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 Need clinical correlation. 2. Chronic microvascular ischemic changes. 3. Age-matched involutional brain changes. 4. Early changes of a stroke may not be detected on a CT scan. If strong clinical suspicion of stroke, then suggest MRI with diffusion-weighted imaging. Electronically signed by Arnoldo Ibarra 02-01-2025 03:56 AM (5) UTI (urinary tract infection) Hematuria presence: without hematuria Urinary tract infection type: site unspecified Qualified Code(s): N39.0 - Urinary tract infection, site not specified
[2025-02-01] MEDS ORDERED: MECLIZINE 12.5 MG TAB PO PRN (11:52)
[2025-02-01] MEDS ORDERED: PHARMACIST DISCHARGE MED REC CONSULT PRN (12:05)
--- NOTE | 2025-02-01 14:07 | Neurology Consultation ---
Date of Consultation February 01, 2025 Assessment & Plan (1) Abnormal CT of brain: Recommend MRI brain with and without contrast Continue frequent neurological assessments Obtain stat CT brain without contrast for any acute neurological decline Continue to monitor/control blood pressure & blood glucose Continue to monitor telemetry closely Continue to monitor renal and hepatic function, keep euvolemic Agree with continued current therapies for UTI, concern of GI bleeding and delirium Agree with continued AED- Keppra Agree with continued seizure precautions Utilize benzodiazepines emergently for any breakthrough clinical seizure like activity Continue to monitor for s/s of hemorrhage Ok from neurology perspective for VTE prophylaxis PT/OT/SLT to eval and treat Telehealth Consultation Telehealth Information Telehealth Information: I performed this visit using a real-time telehealth connection between my location and the patients location ([facility]). After connecting through interactive tele-video, patient was identified by name and date of and/or wristband check.Patient (or authorized healthcare fuels sales representative) was informed that this was a telemedicine visit and it was being conducted confidentially over secure lines. My office door was closed and no one else was present in the room with me.Patient (or authorized healthcare fuels sales representative) provided consent to proceed with the visit, expressed an understanding of privacy and security of the telemedicine visit, and gave permission to have a hospital fuels sales representative in the room in order to assist with the visit and to conduct portions of the visit, as needed. I informed the patient (or authorized healthcare fuels sales representative) that I reviewed their record and presented the opportunity for them to ask any questions regarding the visit today. The patient agreed to participate. 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 Underwent anticoagulation reversal. Family reports ongoing visual hallucination has been receiving tx for UTI. Last evening demonstrated reported acute change/unresponsiveness prompting CT imaging to be performed. CT brain without contrast approx an hour and a half after a CTA demonstrated concern of right frontal hemorrhage but follow up CT without contrast several ho urs later did not depict similar findings. I have performed televideo consultation. She is awake and able to answer most questions appropriately, name objects on televideo monitor, and follow simple commands without deficit. Neurological exam is non lateralizing/nonfocal in terms of motor strength and coordination. Allergies Allergy/AdvReac Type Severity Reaction Status Date / Time azithromycin Allergy Mild Unknown Verified 01/30/25 00:47 [From Zithromax Z-Moe] meperidine [From Demerol] Allergy Mild Unknown Verified 01/30/25 00:47 Penicillins Allergy Mild Unknown Verified 01/30/25 00:47 Sulfa (Sulfonamide Allergy Mild Unknown Verified 01/30/25 00:47 Antibiotics) Home Medications Medication Instructions Recorded Confirmed Type aspirin 81 mg capsule 81 mg PO QAM 01/29/24 01/30/25 History calcium carbonate 500 mg PO QAM 01/29/24 01/30/25 History ztbwbhewyial-jbkmadto-hjcfbx tablet 1 tab PO QAM 01/29/24 01/30/25 History pravastatin 20 mg tablet 20 mg PO HS 01/29/24 01/30/25 History vit C 250 mg-vit E 90 mg-zinc 40 1 tab PO BID 01/29/24 01/30/25 History mg-copper 1 pk-cjbrgm-kjsdum capsule (PreserVision AREDS-2) vitamin B12 0.5 mg-folic acid 1 mg 1 tab PO WK 01/29/24 01/30/25 History tablet warfarin 6 mg tablet 6 mg PO 6XWK 01/29/24 01/30/25 History peg 3350-electrolytes 236 240 ml PO Q10M #4,000 mL 02/01/24 01/30/25 Rx gram-22.74 gram-6.74 gram-5.86 gram solution (GaviLyte-G) cholecalciferol (vitamin D3) 10 400 unit PO DAILY 01/30/25 01/30/25 History mcg (400 unit) tablet docusate sodium 100 mg capsule 100 mg PO Q2D 01/30/25 01/30/25 History famotidine 40 mg tablet 40 mg PO DAILY 01/30/25 01/30/25 History levetiracetam 750 mg tablet 750 mg PO BID 01/30/25 01/30/25 History warfarin 6 mg tablet 3 mg PO WK 01/30/25 01/30/25 History Patient History Medical History Hx of basal cell carcinoma History of anesthesia reaction hypersensitive to all narcotics and anesthesia, difficulty waking, also had colonoscopy in the past where she was aware & in pain during procedure Hx of colonic polyp Hypercholesteremia Chronic back pain hx fractured spine age 32's Scoliosis History of stroke x 7, started in 2005, No Neuro at present, no deficits, daily coumadin Seizure disorder (~2018) only x 1, thought stroke, but ruled out, no longer sees Neuro, on Keppra GERD (gastroesophageal reflux disease) Blind right eye Macular degeneration Surgical History Hx of basal cell carcinoma excision Hx of melanoma excision Hx of colonoscopy with polypectomy History of surgery on wrist right Hx of hysterectomy Hx of total knee replacement right Social History Smoking Status: Former smoker Tobacco Type: Cigarettes Cigarettes Per Day: 1 PPD; Smoking End Date: >50 yrs ago; Second Hand Exposure: No; Do You Dip or Chew Tobacco: No; Hx Alcohol Use: No Hx Substance Use: No Preferred Language: Tajik Communication Ability: Effective Remote Sensing Analyst Required: No Beliefs That Will Affect Care: None Current Living Situation: Alone Feels Safe at Home: Yes Assistive Devices: Cane and Walker Physical Exam Neurological Examination: Mental Status: Awake and alert. Oriented to person, place, and time. Fluency naming repetition and comprehension appear grossly intact. Affect remains appropriate. CN testing: I: Denies changes in ability to smell II:Reports no changes in visual acuity III/IV/: No evidence of gaze preference, hippus, nystagmus or roving eye movements V: Facial sensation reportedly grossly intact to light touch bilaterally VII: Facial movements appear without evidence of asymmetry VIII: Hearing appears grossly intact to loud voice bilaterally IX/X: Palate appears to elevate symmetrically XI: Shoulder shrug appears symmetric/ grossly intact bilaterally XII: Tongue protrudes midline without evidence of biting Motor exam: Strength appears grossly intact/symmetric in all extremities Sensory: Sensation is reportedly grossly intact throughout Coordination: Finger to nose and heel to teran were intact. No apparent evidence of dysmetria or dysdiadochokinesia Reflexes: Deferred Gait: Deferred Results & Data Vital Signs (Past 12 Hours) Vital Signs Temp Pulse Pulse Resp BP Pulse Ox O2 Del Method 02/01/25 11:44 37.1 C 78 21 106/66 96 Room Air 02/01/25 11:00 80 118/68 02/01/25 10:00 83 17 114/66 94 Room Air 02/01/25 09:00 82 100/60 02/01/25 07:41 36.6 C 83 20 114/66 94 Room Air 02/01/25 07:00 83 16 115/68 93 Room Air 02/01/25 06:30 75 100/62 Room Air 02/01/25 06:00 79 94/58 L Room Air 02/01/25 05:43 Room Air 02/01/25 05:30 71 99/63 L Room Air 02/01/25 05:00 81 125/75 Room Air 02/01/25 04:30 36.9 C 83 17 115/72 97 Room Air 02/01/25 04:00 36.6 C 81 18 127/71 95 Room Air 02/01/25 03:21 80 129/71 97 Room Air 02/01/25 02:30 36.7 C 76 18 124/76 94 Room Air 02/01/25 02:00 36.4 C L 85 18 173/95 H 95 Room Air Laboratory Results Abnormal lab results 01/31/25 01/31/25 02/01/25 Range/Units 20:18 20:44 00:17 WBC (4.8-10.8) K/ul RBC 3.27 L (4.20-5.40) M/uL Hgb 8.9 L (12.0-16.0) g/dl Hct 27.6 L (37.0-47.0) % RDW Std Deviation 49.8 H (36.4-46.3) fL RDW Coeff of Roge 16.0 H (11.5-14.5) % [place] # (Auto) 0.72 H (0.11-0.59) K/uL Sodium (136-145) mmol/L Potassium 3.3 L (3.5-5.1) mmol/L Creatinine 0.45 L (0.6-1.2) mg/dl Glucose 130 H (70-99(Fasting)) mg/dl POC Glucose 132 H 161 H (70-99) mg/dl Calcium 7.7 L (8.6-10.3) mg/dl Troponin I High Sens 18.7 H (0-14) pg/ml Total Protein 4.9 L (6.0-8.3) gm/dl Albumin 3.0 L (3.4-5.0) gm/dl Globulin 1.9 L (2.5-4.0) gm/dl 02/01/25 Range/Units 05:41 WBC 12.37 H (4.8-10.8) K/ul RBC 3.67 L (4.20-5.40) M/uL Hgb 10.2 L (12.0-16.0) g/dl Hct 30.4 L (37.0-47.0) % RDW Std Deviation 47.3 H (36.4-46.3) fL RDW Coeff of Roge 15.8 H (11.5-14.5) % [place] # (Auto) (0.11-0.59) K/uL Sodium 134 L (136-145) mmol/L Potassium (3.5-5.1) mmol/L Creatinine 0.37 L (0.6-1.2) mg/dl Glucose 125 H (70-99(Fasting)) mg/dl POC Glucose (70-99) mg/dl Calcium 8.2 L (8.6-10.3) mg/dl Troponin I High Sens (0-14) pg/ml Total Protein (6.0-8.3) gm/dl Albumin (3.4-5.0) gm/dl Globulin (2.5-4.0) gm/dl Diagnostic Findings Head CT 01/31/25 20:23 CR Exam(s): CT HEAD Without Contrast EXAM: CT Head Without Intravenous Contrast CLINICAL HISTORY: Reason for exam: neuro deficit, acute stroke suspected. TECHNIQUE: Axial computed tomography images of the head/brain without intravenous contrast. CTDI is 38.31 mGy and DLP is 624.41 mGy-cm. Automated exposure control was utilized for the study. A dose lowering technique was utilized adhering to the principles of ALARA. COMPARISON: CT head: 01/29/2025 FINDINGS: Motion-induced image degradation limits anatomical details. Brain: Again noted an old infarct with encephalomalacia posteriorly in the right frontal lobe and in the right caudate lobe//putamen.. There is no acute intracranial hemorrhage, mass-effect or midline shift of structures. Age-related cerebral atrophy with widening of the extra-axial spaces and ventricular dilatation. Periventricular/subcortical areas with decreased density in the white matter most likely related to chronic microvascular disease. Bones/joints: Unremarkable. No acute fracture. Soft tissues: Unremarkable. Calcified atherosclerosis of the bilateral cavernous ICAs. Sinuses: No active disease in the sinuses and mastoids. IMPRESSION: No acute intracranial pathology noted. Remote infarction with encephalomalacia in the right MCA territory. Chronic involutional and ischemic changes of the brain. . Communications: Call Doctor Stroke Electronically signed by: Zoltan Campo MD, DABR 01/31/25 21:26 PM Head CTA 01/31/25 20:23 CR Exam(s): CTA HEAD With Contrast IV Amt: 112 ml optiray 320 EXAM: CT Angiography Head With Intravenous Contrast CLINICAL HISTORY: Reason for exam: neuro deficit, acute stroke suspected. TECHNIQUE: Axial computed tomographic angiography images of the head with intravenous contrast. CTDI is 38.31 mGy and DLP is 624.41 mGy-cm. Automated exposure control was utilized for the study. A dose lowering technique was utilized adhering to the principles of ALARA. MIP reconstructed images were created and reviewed. CONTRAST: Patient received 112 ml optiray 320 of IV contrast COMPARISON: CT brain: 01/31/2025 and 01/29/2025 FINDINGS: Right internal carotid artery: Calcified plaques of the cavernous ICA. No acute findings. Intracranial segment is patent with no significant stenosis. No aneurysm. Right anterior cerebral artery: No occlusion or significant stenosis. No aneurysm. Right middle cerebral artery: No occlusion or significant stenosis. No aneurysm. Right posterior cerebral artery: No occlusion or significant stenosis. No aneurysm. Right vertebral artery: Unremarkable as visualized. Left internal carotid artery: Atheromatous calcified plaques of the cavernous ICA. No acute findings. Intracranial segment is patent with no significant stenosis. No aneurysm. Left anterior cerebral artery: No occlusion or significant stenosis. No aneurysm. Left middle cerebral artery: Moderate grade stenosis of the M2/M3 segments. No occlusion or significant stenosis. No aneurysm. Left posterior cerebral artery: No occlusion or significant stenosis. No aneurysm. Left vertebral artery: Dominant. Unremarkable as visualized. Basilar artery: Unremarkable. No occlusion or significant stenosis. No aneurysm. Other findings: Remote infarct with encephalomalacia posteriorly in the right frontal lobe. . IMPRESSION: CTA head: No large vessel occlusion, significant stenosis or aneurysm demonstrated. . Communications: Call Doctor Stroke Electronically signed by: Zoltan Campo MD, DABR 01/31/25 21:15 PM Neck CTA 01/31/25 20:23 CR Exam(s): CTA NECK With Contrast IV Amt: 112 ml optiray 320 EXAM: CT Angiography Neck With Intravenous Contrast CLINICAL HISTORY: Reason for exam: neuro deficit, acute stroke suspected. TECHNIQUE: Routine carotid CT angiography protocol was performed with intravenous contrast. NASCET criteria using the distal ICAs for comparison were used for evaluation of stenoses. CTDI is 16.61 mGy and DLP is 432.54 mGy-cm. Automated exposure control was utilized for the study. A dose lowering technique was utilized adhering to the principles of ALARA. MIP reconstructed images were created and reviewed. CONTRAST: Patient received 112 ml optiray 320 of IV contrast COMPARISON: None. 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 Calcified atheromatous plaques of the aortic arch/descending aorta. Right common carotid artery: Proximally atheromatous calcified plaques. Tortuosity/elongation. No occlusion or significant stenosis. No dissection. Right carotid bulb: Calcified plaques with< 50% luminal narrowing. Right extracranial internal carotid artery: Proximally calcified plaques with <50% luminal narrowing. No occlusion or high-grade stenosis. No dissection. Right external carotid artery: Unremarkable. No occlusion. Right vertebral artery: Unremarkable. No occlusion or significant stenosis. No dissection. Left common carotid artery: Unremarkable. No occlusion or significant stenosis. No dissection. Left carotid bulb: Bulky calcified atherosclerotic plaques with 50% stenosis Left extracranial internal carotid artery: Proximally calcified like with 50% luminal narrowing. No occlusion or hemodynamically significant stenosis. No dissection. Left external carotid artery: Unremarkable. No occlusion. Left vertebral artery: Unremarkable. No occlusion or significant stenosis. No dissection. NECK: Bones/joints: No acute fracture. Mild C4 vertebral anterolisthesis. Multilevel moderate degenerative spondylitic changes. Soft tissues: Unremarkable. Lung apices: In the right upper lobe a 1.7 x 1.1 cm solid nodule is seen, suspicious of malignancy (series 7 image 81). Significant biapical pleural parenchymal scarring. Other findings: . A 1.4 x 1.2 cm complex hypodense left thyroid nodule (series 7 image 154). Sonographic correlation is advised. CAROTID STENOSIS REFERENCE USING NASCET CRITERIA: % ICA stenosis = (1 - narrowest ICA diameter/diameter of distal cervical ICA) x 100. Mild - <50% stenosis. Moderate - 50-69% stenosis. Severe - 70-94% stenosis. Near occlusion - 95-99% stenosis. Occluded - 100% stenosis. IMPRESSION: CTA neck: Calcified atheromatous plaques of the bilateral carotid bulbs and proximal internal carotid arteries with up to 50% luminal narrowing as described above. No hemodynamically significant stenosis, aneurysm or acute pathology demonstrated. A 1.7 x 1.1 cm suspicious solid pulmonary nodule seen in the left upper lobe. Correlation with chest CT, PET/CT scan/biopsy recommended. Nonspecific 1.4 x 1.2 cm complex left thyroid nodule. Sonographic correlation is advised. Degenerative cervical spondylosis with C4 mild anterolisthesis.. Communications: Call Doctor Stroke Electronically signed by: Zoltan Campo MD, DABR 01/31/25 21:[address] 01/31/25 21:50 CR Exam(s): CT HEAD Without Contrast EXAM: CT Head Without Intravenous Contrast CLINICAL HISTORY: Reason for exam: stroke, ffup critical. TECHNIQUE: Axial computed tomography images of the head/brain without intravenous contrast. CTDI is 35.65 mGy and DLP is 547.75 mGy-cm. Automated exposure control was utilized for the study. A dose lowering technique was utilized adhering to the principles of ALARA. COMPARISON: CT head: 01/31/2025 by 2023 hrs. FINDINGS: Image quality is hampered by motion artifact. Brain: Demonstrates in the interim a 1.5 x 0.7 cm focal hyperdensity extra-axially, laterally along the right frontal lobe with associated high density changes in the adjacent subarachnoid regions (series 2 image 15, 16), and laterally adjacent to the right frontal lobe area with encephalomalacia/gliosis. Age related cerebral atrophy with widening of the extra-axial spaces and ventricular dilatation. Periventricular areas of decreased attenuation within the white matter tracts likely from chronic microvascular disease. Bones/joints: No acute fracture. Soft tissues: Unremarkable. Sinuses: No active disease is evident in the visualized sinuses and mastoid air cells. IMPRESSION: Demonstrates in the interim a 1.5 x 0.7 cm extra-axial hyperdensity/focal subdural hemorrhage with likely associated regional subarachnoid hemorrhage. Otherwise findings are unchanged since resent today's CT head exam. . Communications: Call Doctor Intracranial Hemorrhage Electronically signed by: Zoltan Campo MD, DABR 01/31/25 22:[address] 02/01/25 02:02 EXAM: CT head/brain wo con CLINICAL HISTORY: Dizziness, itch. TECHNIQUE: Axial non-contrast CT scan of the brain was performed from the skull base to the high parietal region. One of the following dose reduction techniques were utilized for this exam: Automated exposure control, adjustment of the mA and/or kV according to patient size, use of iterative reconstruction. COMPARISON: No available prior studies for comparison. FINDINGS: Brain Parenchyma: A hypodensity is seen implicating the right insular cortex and subcortical white matter, as well as the lateral aspect of the right high frontal lobe (part of the right MCA territory). Chronic microvascular ischemic changes. No evidence of related hemorrhagic changes. Ventricular System: Mildly dilated ventricular system, part of age-related involutional changes. Subarachnoid Spaces: Mildly enlarged ventricular system with deepened sulci. Cerebellum and Brainstem: Normal size and signal. No masses, lesions, or areas of abnormal density. Orbits: Normal appearance of the globes, optic nerves, and extraocular muscles. No evidence of orbital masses or abnormal density. Sinuses: Clear paranasal sinuses. No evidence of sinusitis or mucosal thickening. Mastoid Air Cells: Clear mastoid air cells. No evidence of mastoiditis. Skull: Normal skull morphology. IMPRESSION: 1. 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 Need clinical correlation. 2. Chronic microvascular ischemic changes. 3. Age-matched involutional brain changes. 4. Early changes of a stroke may not be detected on a CT scan. If strong clinical suspicion of stroke, then suggest MRI with diffusion-weighted imaging. Electronically signed by Arnoldo Ibarra 02-01-2025 03:56 AM Medications Administered Home Medications Medication Instructions Recorded Confirmed Last Taken aspirin 81 mg capsule 81 mg PO QAM 01/29/24 01/30/25 02/12/24 calcium carbonate 500 mg PO QAM 01/29/24 01/30/25 02/08/24 peextxddmjwq-qtsnabfd-xrnthc tablet 1 tab PO QAM 01/29/24 01/30/25 02/08/24 pravastatin 20 mg tablet 20 mg PO 01/29/24 01/30/25 02/12/24 vit C 250 mg-vit E 90 mg-zinc 40 1 tab PO BID 01/29/24 01/30/25 02/08/24 mg-copper 1 ba-oxfrii-cvgwkn capsule (PreserVision AREDS-2) vitamin B12 0.5 mg-folic acid 1 mg 1 tab PO WK 01/29/24 01/30/25 02/08/24 tablet warfarin 6 mg tablet 6 mg PO 6XWK 01/29/24 01/30/25 02/08/24 peg 3350-electrolytes 236 240 ml PO Q10M #4,000 mL 02/01/24 01/30/25 02/13/24 02:30 gram-22.74 gram-6.74 gram-5.86 gram solution (GaviLyte-G) cholecalciferol (vitamin D3) 10 400 unit PO DAILY 01/30/25 01/30/25 Unknown mcg (400 unit) tablet docusate sodium 100 mg capsule 100 mg PO Q2D 01/30/25 01/30/25 Unknown famotidine 40 mg tablet 40 mg PO DAILY 01/30/25 01/30/25 Unknown levetiracetam 750 mg tablet 750 mg PO BID 01/30/25 01/30/25 Unknown warfarin 6 mg tablet 3 mg PO WK 01/30/25 01/30/25 Unknown Active Medications Generic Name Dose Route Start Last Admin Trade Name Freq PRN Reason Stop Dose Admin Hydralazine HCl 5 mg 02/01/25 01:32 02/01/25 02:14 Hydralazine Hcl 20 Mg/Ml Vial IV 03/03/25 01:31 5 mg Q4H PRN Administration sbp > 170 Ceftriaxone Sodium 2,000 mg in 50 mls @ 100 mls/hr 01/31/25 06:00 02/01/25 06:00 Rocephin IV 02/10/25 05:59 Infused Q24H ALFONSO Infusion Sodium Chloride 1,000 mls @ 60 mls/hr 01/30/25 09:00 02/01/25 04:51 Nss IV 02/02/25 08:59 60 mls/hr .[id number] ALFONSO Infusion Promethazine HCl 6.25 mg in 50.25 mls @ 201 mls/hr 02/01/25 02:11 02/01/25 02:52 Phenergan IV 03/03/25 02:10 Infused Q6H PRN Infusion Nausea And Vomiting Levetiracetam 1,000 mg 02/01/25 09:00 02/01/25 10:11 Levetiracetam 500 Mg Tab PO 03/03/25 08:59 1,000 mg BID ALFONSO Administration Multivitamins/Minerals 1 tab 01/30/25 09:00 02/01/25 10:09 Cerovite Adv Formula Tab PO 03/01/25 08:59 1 tab QAM ALFONSO Administration Ondansetron HCl 4 mg 01/31/25 10:37 02/01/25 01:30 Ondansetron Inj 2 Mg/Ml 2 Ml Vial IV 03/02/25 10:44 4 mg Q6H PRN Administration nausea Pravastatin Sodium 20 mg 01/30/25 21:00 01/31/25 23:22 Pravastatin Sod 20 Mg Tab PO 03/01/25 20:59 Not Given HS ALFONSO
[2025-02-01] MEDS: GADOBUTROL 65ML VIAL IV ONE (19:18)
--- NOTE | 2025-02-01 21:02 | Magnetic Resonance Report ---
EXAM: MR brain wo/w con CLINICAL HISTORY: r/o stroke TECHNIQUE: MRI of the brain was performed with and without intravenous contrast administration. Sequences obtained include pre-contrast and post-contrast T1-weighted, T2-weighted, FLAIR (Fluid-Attenuated Inversion Recovery), DWI (Diffusion-Weighted Imaging), and ADC (Apparent Diffusion Coefficient) sequences. 6ml gadavist was administered intravenously. Images were sent through PACS for diagnostic interpretation. COMPARISON: CT Head done on the same day is reviewed. FINDINGS: Brain Parenchyma: There is an altered intensity area in the right temproparietal region appearing hyperintense on T2 and FLAIR not showing any restricted diffusion. 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 Post-Contrast Findings: An extraaxial dural based enhancing lesion in the right posterior parietal lobe likely signifying a meningiom. Ventricles and Sulci: Prominent intra and extra-axial csf spaces signifying senile involutionary changes. Brainstem and Cerebellum: Normal appearance of the brainstem and cerebellum without focal lesions or abnormal enhancement. Vessels: Intracranial vessels appear normal without evidence of vascular malformations or aneurysms. Skull and Calvarium: No evidence of skull vault lesions or abnormal marrow signal within the calvarium. IMPRESSION: 1. No definite area of restricted diffusion to suggest acute infarctiona. 2. 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 (stable) 3. 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 (not seen in CT head without contrast) Follow-up is advised. 4. Senile involutionary changes and moderate microvascular angiopathic changes. (stable) Electronically signed by Arnoldo Ibarra 02-01-2025 9:01 PM
[2025-02-01] MEDS: ACETAMINOPHEN 325 MG TAB PO PRN (21:43)
[2025-02-01] MEDS: PANTOprazole 40 MG/10 ML SYR IV SCH (21:43)
[2025-02-02 06:05] LABS: Basophils # (auto) 0.02 K/uL (0.00-0.20); Basophils % (auto) 0.2 %; Eosinophils # (auto) 0.14 K/uL (0.00-0.50); Eosinophils % (auto) 1.6 %; Hemoglobin 9.1 g/dl (12.0-16.0); Immature Granulocytes # (auto) 0.04 K/uL (0.01-0.20); Immature Granulocytes % (auto) 0.5 %; Lymphocytes # (auto) 1.85 K/uL (1.20-3.40); Lymphocytes % (auto) 21.1 %; Mean Corpuscular Hemoglobin 27.9 pg (25.0-34.0); Mean Corpuscular Hgb Conc 32.5 g/dL (32.0-36.0); Mean Corpuscular Volume 85.9 fL (80.0-100.0); Mean Platelet Volume 10.4 fL (9.4-12.4); Monocytes # (auto) 0.94 K/uL (0.11-0.59); Monocytes % (auto) 10.7 %; Neutrophils # (auto) 5.79 K/uL (1.40-6.50); Neutrophils % (auto) 65.9 %; Platelet Count 208 K/uL (130-400); RDW Coefficient of Variation 16.3 % (11.5-14.5); RDW Standard Deviation 49.9 fL (36.4-46.3); Red Blood Count 3.26 M/uL (4.20-5.40); White Blood Count 8.78 K/ul (4.8-10.8)
[2025-02-02 06:21] LABS: Calcium 8.2 mg/dl (8.6-10.3); Chol HDL Ratio 2.7 (0-5); Creatinine Clr Calc Pharmacy 71.3 ml/min; Potassium 3.6 mmol/L (3.5-5.1)
[2025-02-02 06:30] LABS: Prothrombin Time 10.7 Seconds (9.0-12.0)
--- NOTE | 2025-02-02 07:35 | Hospitalist Progress Note ---
Date of Service February 02, 2025 Assessment & Plan (1) AMS (altered mental status): (2) Acute anemia: (3) Delirium: (4) Near syncope: Plan: #Dizziness #R/O Stroke #Possible seizure #Delirium #History CVA. 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 Initial 01/29/25 CT Head: no acute intracranial abnormality Initial UA concern for suspected UTI and was treated with Rocephin, however urine culture is unremarkable Suspected worsening delirium throughout hospital course Ambulatory dysfunction and deconditioning thought multifactorial secondary to UTI and symptomatic anemia 01/31/25 at 20:10 patient was reported to be found unresponsive to stimulation and sternal rub and code purple called and stroke alert called. BSG was 130's. INR was 1.1 01/31/25 CT head at 20:23 with reported "Remote infarction with encephalomalacia in the right MCA territory. Chronic involutional and ischemic changes of the brain" 01/31/25 CTA head: No large vessel occlusion, significant stenosis or aneurysm demonstrated. 01/31/25 CTA neck: "Calcified atheromatous plaques of the bilateral carotid bulbs and proximal internal carotid arteries with up to 50% luminal narrowing. No hemodynamically significant stenosis, aneurysm or acute pathology demonstrated." Repeat CT head 01/31/25 at 21:50 reported to "demonstrate in the interim a 1.5 x 0.7 cm extra-axial hyperdensity/focal subdural hemorrhage with likely associated regional subarachnoid hemorrhage. Demonstrates in the interim a 1.5 x 0.7 cm extra-axial hyperdensity/focal subdural hemorrhage with likely associated regional subarachnoid hemorrhage." 02/01/25 CT head at 02:02 reported "Right indeterminate age, likely chronic non-hemorrhagic ischemic insult, implicating the insular and high frontal region (MCA territory). Chronic microvascular ischemic changes. Age-matched involutional brain changes." DDx: stroke vs unwitnessed seizure with post-ictal state and possible concern for ICH secondary to iffering interpretations of CT Head by radiologist After this event patient later became awake and was oriented to person and place. Yesterday having dizziness described as "bed swaying" with associated nausea. 02/01/25 MRI Brain: No definite area of restricted diffusion to suggest acute infarction. Right temporoparietal altered signal intensity area appearing hyperintense on T2 and FLAIR with ex-vacuo dilatation of ipsilateral lateral ventricle signifying old infarct/encephalomalacia. (stable). 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 (not seen in CT head without contrast) Follow-up is advised. Senile involutionary changes and moderate microvascular angiopathic changes. (stable) No sign of ICH on MRI brain Today with reported decreased vertigo type dizziness No seizure like activity noted in last 24 hours Continue seizure precautions Obtain EEG Home Keppra was changed from 750mg BID to 1000mg BID and will continue Continue home statin Holding home aspirin and warfarin currently, may be able to resume tomorrow. Consideration for possible DOAC instead of warfarin. Family think warfarin was choice instead of DOAC years ago secondary to insurance coverage, however I was unable to find any clarification of this in outpatient records. Will do trial of meclizine prn dizziness. Try to avoid Phenergan at this time to try to avoid further mental status changes/symptoms Neurology consult. Appreciate recommendations: "Recommend ambulatory referral to follow up with NSG and obtain repeat MRI brain with and without contrast in one month." PT/OT eval. Possible Abelardo maneuver may be considered if pt has recurrent dizziness Fall precautions She has continued with visual hallucinations. Last night did not sleep and restless with visual hallucinations. This morning able to ambulate with assistance to bedside chair and had intial PT eval. This morning very tired and sleeping on exam. Will allow to sleep and rest currently. Plan to continue delirium precautions #Anemia During hospital course had noted downtrending Hgb: 13.4 on 01/27 to 7.5 on 01/30. Initially thought possible to bleeding/oozing wound of LUE. During hospital course wound without noted bleeding, and possible secondary to warfarin. Warfarin and aspirin have been on hold. 01/30/25 CT abd/pelvis negative for evidence of retroperitoneal bleeding. FOBT negative on 01/30. S/P 1U PRBCs on 01/30. Today Hgb:9.1 and has been stable Initially on PPI drip which was transitioned PPI IV BID yesterday Monitor H&H Patient and family denied EGD/colonoscopy No further signs of bleeding at this time Aspirin and warfarin has been on hold. Possibly resume tomorrow (5) UTI (urinary tract infection): Plan: Initial UA suggestive of infection given 1+ LE, 6-10 WBC and 4+ bacteria. Treated with IV Rocephin x 3 days Urine culture negative Antibiotics have been discontinued (6) Occasional tremors: (7) History of seizure disorder: Plan: Daughter, Talya, reports that patient has intermittent BUE and BLE tremors at baseline. With possible seizure home Keppra changed from 750mg BID to 1000mg BID Keppra level pending. (8) Elevated troponin: Plan: Likely demand ischemia Troponins flat EKG without evidence of ST changes on admission (9) Abnormal CT of the abdomen: Plan: CTAP: Fullness centrally in both kidneys. Much of this appears to represent parapelvic cysts though it is difficult to exclude some degree of bilateral hydronephrosis without delayed images. There is no dilated ureter or urinary tract calculus. No other visually acute findings. Renal function remains stable. No evidence of JOANN. Did check renal/bladder US which redemonstrated cortical thinning of the kidneys and bilateral renal sinus cysts however there was no evidence of hydronephrosis. Continue to closely monitor renal function. (10) Pulmonary nodules: Plan: Incidental finding of two 11mm nodules in the R lung on CXR. Will need outpatient chest CT for further evaluation. CXR also noted mild peribronchial thickening of the central bronchi however patient is without any respiratory complaints. Suspect noninfectious etiology. #HLD Continue statin. DVT Prophylaxis: SCDs/TEDs for now Code Status: DNR/DNI PCP: Carol Encarnacion PA-C Disposition: Discharge plans uncertain at this time. Patient lives at home alone. Obtain PT/OT evaluations and monitor ongoing delerium Updated patient's daughter, Talya, as well as other family members this morning at bedside on the above plan of care. Patient seen in collaboration with Dr. Romero. Please see addendum. I spent a total of 60 minutes coordinating, documenting, and providing care for this patient excluding time spent in the performance of separately billed services or time spent by another provider/QHP. This included personally reviewing all current laboratories and imaging studies, medical reconciliation, outpatient chart review and discussion with specialists. Admission and Anticipated Discharge Date Admission Date: January 30, 2025 Supervising Physician Co-Signing Physician Notes Attending Addendum: Case reviewed with the advanced practitioner. I have reviewed the advanced practitioner's documentation on the date of service referenced in note, and I agree with, and take responsibility for the plan of care. please refer to her notes for full details patient seen and examined, records reviewed by myself as well diagnoses and plan of care as per advanced practitioner's notes I spent a total of 25 minutes coordinating, documenting, and providing care for this patient, excluding time spent in the performance of separately billed services or time spent by another provider/QHP. Adal Romero MD Subjective Patient seen and examined in Room 457-2. Patient in bed sleeping. She sleeps throughout entire encounter. Daughter, Talya and several other family members at beside. Daughter states patient continued to have visual hallucinations last night. States patient didn't sleep last night. Reports patient was able to get up to bedside commode and into bedside chair today with one person assistance. States that she did complain of feeling a little "woozy" with standing today. Per daughter patient had reported improvement of her prior "room moving" dizziness symptoms. Since patient now resting comfortably will allow to sleep. Review of Systems Review of Systems: All systems reviewed & are unremarkable except as noted in HPI & below Physical Exam Physical Exam: General: no distress, WDWN, sleeping in bed Head: normocephalic, atraumatic ENT: normal inspection external ears, nose, mucous membranes moist Neck: supple, trachea midline Lungs: clear, no respiratory distress, no wheezing/rhonchi/rales CV: RRR, no pretibial edema Abd: normal BS, soft, no apparent tenderness Ext: no cyanosis, no calf tenderness Neuro: +Sleeping. Sleeps throughout conversation and exam. Did not attempt to wake patient as she just fell asleep after being up all night. Skin: warm, dry Results & Data Results & Data Vital Signs (Past 12 Hours) Vital Signs Temp Pulse Pulse Pulse Resp BP Pulse Ox 02/02/25 03:45 36.9 C 88 18 128/73 92 05/04/25 00:00 86 02/01/25 22:49 37.0 C 88 20 115/73 92 02/01/25 21:00 37.1 C 82 16 122/73 93 02/01/25 20:00 36.8 C 82 85 17 111/65 93 O2 Del Method 02/02/25 03:45 Room Air 02/02/25 00:00 02/01/25 22:49 Room Air 02/01/25 21:00 Room Air 02/01/25 20:00 Room Air Laboratory Results Short CBC 02/02/25 Range/Units 05: WBC 8.78 (4.8-10.8) K/ul Hgb 9.1 L (12.0-16.0) g/dl Hct 28.0 L (37.0-47.0) % Plt Count 208 (130-400) K/uL BMP 02/02/25 05:25 Sodium 141 Potassium 3.6 Chloride 108 H Carbon Dioxide 30 BUN 8 Creatinine 0.50 L Glucose 105 H Calcium 8.2 L Diagnostic Findings Chest X-Ray 01/29/25 20:54 CR Exam(s): XR CXR 1 VIEW EXAM: XR Chest, 1 View CLINICAL HISTORY: Reason for exam: weakness. TECHNIQUE: Frontal view of the chest. COMPARISON: No relevant prior studies available. FINDINGS: Lungs: Mild peribronchial thickening of the central bronchi. There is 11 mm nodular density in the right lower lobe and a likely 5 mm nodular density in the right upper lobe. No consolidation. Pleural space: Unremarkable. No pneumothorax. Heart: Unremarkable. No cardiomegaly. Mediastinum: Unremarkable. Normal mediastinal contour. Bones/joints: Unremarkable. No acute fracture. IMPRESSION: Bronchitis, which may be of infectious or inflammatory etiologies. There are two 11 mm nodules in the right lung. Recommend CT scan of the chest for further evaluation. Communications: Verify Receipt Electronically signed by: Kalyani Braun MD 01/29/25 23:[address] 01/29/25 23:18 Exam(s): CT HEAD Without Contrast EXAM: CT Head Without Intravenous Contrast CLINICAL HISTORY: Reason for exam: weakness. TECHNIQUE: Axial computed tomography images of the head/brain without intravenous contrast. CTDI is 37.51 mGy and DLP is 624.41 mGy-cm. Automated exposure control was utilized for the study. A dose lowering technique was utilized adhering to the principles of ALARA. COMPARISON: No relevant prior studies available. FINDINGS: Brain: There is a remote ischemic injury of the right frontal lobe with encephalomalacia and gliosis. No hemorrhage. No significant white matter disease. No edema. Ventricles: Mild ventriculomegaly. Bones/joints: Unremarkable. No acute fracture. Soft tissues: Unremarkable. Sinuses: Unremarkable as visualized. No acute sinusitis. Mastoid air cells: Unremarkable as visualized. No mastoid effusion. IMPRESSION: No evidence of acute intracranial pathology. Electronically signed by: Kalyani Braun MD 01/30/25 02:53 AM Abdomen/Pelvis CT 01/29/25 23:25 Exam(s): CT ABDOMEN + PELVIS With Contrast IV Amt: 93 ml opti 320 EXAM: CT Abdomen and Pelvis With Intravenous Contrast CLINICAL HISTORY: Reason for exam: abd pain, coumadin. TECHNIQUE: Axial computed tomography images of the abdomen and pelvis with intravenous contrast. CTDI is 18.38 mGy and DLP is 841.55 mGy-cm. Automated exposure control was utilized for the study. A dose lowering technique was utilized adhering to the principles of ALARA. CONTRAST: Patient received 93 ml opti 320 of IV contrast COMPARISON: No relevant prior studies available. FINDINGS: ABDOMEN: Liver: Unremarkable. No mass. Gallbladder and bile ducts: Unremarkable. No calcified stones. No ductal dilation. Pancreas: Unremarkable. No mass. No ductal dilation. Spleen: Unremarkable. No splenomegaly. Adrenals: Unremarkable. No mass. Kidneys and ureters: Fullness bilaterally in the central portions of both kidneys. Much of this may represent clusters of parapelvic cysts; however, at least mild bilateral hydronephrosis is difficult to exclude without delayed images. There is no dilated ureter. There is no urinary tract calculus. Stomach and bowel: Generalized increase in stool within the mid to distal colon. No obstruction. No mucosal thickening. PELVIS: Appendix: No findings to suggest acute appendicitis. Bladder: Unremarkable. No mass. Reproductive: Hysterectomy. ABDOMEN and PELVIS: Intraperitoneal space: Unremarkable. No free air. No significant fluid collection. Bones/joints: No acute findings. Soft tissues: Unremarkable. Vasculature: Extensive atherosclerotic calcification of the aorta and its major branches.. No abdominal aortic aneurysm. Lymph nodes: Unremarkable. No enlarged lymph nodes. IMPRESSION: Fullness centrally in both kidneys. Much of this appears to represent parapelvic cysts though it is difficult to exclude some degree of bilateral hydronephrosis without delayed images. There is no dilated ureter or urinary tract calculus. No other visually acute findings. Electronically signed by: Mukund Hedrick MD 01/30/25 01:43 AM Renal Ultrasound 01/30/25 09:15 RENAL ULTRASOUND HISTORY: Bilateral flank pain with urinary tract infection UTI, possible hydronephrosis COMPARISON: CT abdomen and pelvis 01/30/2020 FINDINGS: Right kidney: 9.5 cm. Renal sinus cysts redemonstrated. No hydronephrosis. 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 Mild cortical thinning again noted. Left kidney: 8.5 cm. No hydronephrosis. Mild cortical thinning again noted. The left kidney is partially obscured by bowel gas. Renal sinuses are better seen on the prior study. Bladder: No bladder wall thickening. Only the left ureteral jet is seen. IMPRESSION: 1. Cortical thinning of the kidneys redemonstrated without hydronephrosis. 2. 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 ACT 112: Negative or not required by law. Electronically signed by: Demond Coleman M.D. 01/30/2025 10:38 AM Abdomen/Pelvis CT 01/30/25 15:05 Clinical History: Worsening anemia. Rule out retroperitoneal bleed Technique: Axial computed tomography images were obtained of the abdomen and pelvis both before and after the administration of intravenous contrast. No prior CT is available for comparison. Findings: The liver is overall of normal size, attenuation, and contour with no sign of cirrhosis or significant fatty infiltration. No liver mass lesion is seen. The portal vein is patent. The gallbladder appears unremarkable. No bile duct dilatation is noted. The spleen is of normal size. No focal splenic lesion is evident. The pancreas appears normal with no sign of acute or chronic pancreatitis and no mass lesion noted. The pancreatic duct is of normal caliber. The adrenal glands appear unremarkable. No renal or proximal ureteral calculi are seen. There is no hydronephrosis or perinephric stranding. No renal mass lesion is identified. There are left renal peripelvic cysts. The aorta is of normal caliber. No abdominal adenopathy is seen. The stomach there is constipation the colon appears unremarkable. The appendix appears normal also. No free intraperitoneal fluid or air is identified. There is excreted contrast within the urinary bladder on the precontrast images. No definite bladder mass lesion is evident. The iliac arteries are of normal caliber. No pelvic adenopathy is noted. There is a 1 cm round well marginated noncalcified nodule in the right lower lobe. Lumbar scoliosis and degenerative disc disease is seen. There is an L1 compression fracture, likely old. No focal osseous lesion is seen Impression: 1. Right lower lobe pulmonary nodule, indeterminate in nature. Chest CT is recommended for complete evaluation of the lungs. PET scan or biopsy may be needed 2. Left renal peripelvic cysts 3. No definite sign of hemorrhage in the abdomen and pelvis 4. Constipation 5. L1 compression fracture, likely old ACT 112: Positive. There are findings on this exam that require communication between the performing entity and the patient following Patient Test Result Information Act ([place] ACT 112) guidelines. Electronically signed by Dmitri Duke 01-30-2025 4:[address] 01/31/25 20:23 CR Exam(s): CT HEAD Without Contrast EXAM: CT Head Without Intravenous Contrast CLINICAL HISTORY: Reason for exam: neuro deficit, acute stroke suspected. TECHNIQUE: Axial computed tomography images of the head/brain without intravenous contrast. CTDI is 38.31 mGy and DLP is 624.41 mGy-cm. Automated exposure control was utilized for the study. A dose lowering technique was utilized adhering to the principles of ALARA. COMPARISON: CT head: 01/29/2025 FINDINGS: Motion-induced image degradation limits anatomical details. Brain: Again noted an old infarct with encephalomalacia posteriorly in the right frontal lobe and in the right caudate lobe//putamen.. There is no acute intracranial hemorrhage, mass-effect or midline shift of structures. Age-related cerebral atrophy with widening of the extra-axial spaces and ventricular dilatation. Periventricular/subcortical areas with decreased density in the white matter most likely related to chronic microvascular disease. Bones/joints: Unremarkable. No acute fracture. Soft tissues: Unremarkable. Calcified atherosclerosis of the bilateral cavernous ICAs. Sinuses: No active disease in the sinuses and mastoids. IMPRESSION: No acute intracranial pathology noted. Remote infarction with encephalomalacia in the right MCA territory. Chronic involutional and ischemic changes of the brain. . Communications: Call Doctor Stroke Electronically signed by: Zoltan Campo MD, DABR 01/31/25 21:26 PM Head CTA 01/31/25 20:23 CR Exam(s): CTA HEAD With Contrast IV Amt: 112 ml optiray 320 EXAM: CT Angiography Head With Intravenous Contrast CLINICAL HISTORY: Reason for exam: neuro deficit, acute stroke suspected. TECHNIQUE: Axial computed tomographic angiography images of the head with intravenous contrast. CTDI is 38.31 mGy and DLP is 624.41 mGy-cm. Automated exposure control was utilized for the study. A dose lowering technique was utilized adhering to the principles of ALARA. MIP reconstructed images were created and reviewed. CONTRAST: Patient received 112 ml optiray 320 of IV contrast COMPARISON: CT brain: 01/31/2025 and 01/29/2025 FINDINGS: Right internal carotid artery: Calcified plaques of the cavernous ICA. No acute findings. Intracranial segment is patent with no significant stenosis. No aneurysm. Right anterior cerebral artery: No occlusion or significant stenosis. No aneurysm. Right middle cerebral artery: No occlusion or significant stenosis. No aneurysm. Right posterior cerebral artery: No occlusion or significant stenosis. No aneurysm. Right vertebral artery: Unremarkable as visualized. Left internal carotid artery: Atheromatous calcified plaques of the cavernous ICA. No acute findings. Intracranial segment is patent with no significant stenosis. No aneurysm. Left anterior cerebral artery: No occlusion or significant stenosis. No aneurysm. Left middle cerebral artery: Moderate grade stenosis of the M2/M3 segments. No occlusion or significant stenosis. No aneurysm. Left posterior cerebral artery: No occlusion or significant stenosis. No aneurysm. Left vertebral artery: Dominant. Unremarkable as visualized. Basilar artery: Unremarkable. No occlusion or significant stenosis. No aneurysm. Other findings: Remote infarct with encephalomalacia posteriorly in the right frontal lobe. . IMPRESSION: CTA head: No large vessel occlusion, significant stenosis or aneurysm demonstrated. . Communications: Call Doctor Stroke Electronically signed by: Zoltan Campo MD, DABR 01/31/25 21:15 PM Neck CTA 01/31/25 20:23 CR Exam(s): CTA NECK With Contrast IV Amt: 112 ml optiray 320 EXAM: CT Angiography Neck With Intravenous Contrast CLINICAL HISTORY: Reason for exam: neuro deficit, acute stroke suspected. TECHNIQUE: Routine carotid CT angiography protocol was performed with intravenous contrast. NASCET criteria using the distal ICAs for comparison were used for evaluation of stenoses. CTDI is 16.61 mGy and DLP is 432.54 mGy-cm. Automated exposure control was utilized for the study. A dose lowering technique was utilized adhering to the principles of ALARA. MIP reconstructed images were created and reviewed. CONTRAST: Patient received 112 ml optiray 320 of IV contrast COMPARISON: None. 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 Calcified atheromatous plaques of the aortic arch/descending aorta. Right common carotid artery: Proximally atheromatous calcified plaques. Tortuosity/elongation. No occlusion or significant stenosis. No dissection. Right carotid bulb: Calcified plaques with< 50% luminal narrowing. Right extracranial internal carotid artery: Proximally calcified plaques with <50% luminal narrowing. No occlusion or high-grade stenosis. No dissection. Right external carotid artery: Unremarkable. No occlusion. Right vertebral artery: Unremarkable. No occlusion or significant stenosis. No dissection. Left common carotid artery: Unremarkable. No occlusion or significant stenosis. No dissection. Left carotid bulb: Bulky calcified atherosclerotic plaques with 50% stenosis Left extracranial internal carotid artery: Proximally calcified like with 50% luminal narrowing. No occlusion or hemodynamically significant stenosis. No dissection. Left external carotid artery: Unremarkable. No occlusion. Left vertebral artery: Unremarkable. No occlusion or significant stenosis. No dissection. NECK: Bones/joints: No acute fracture. Mild C4 vertebral anterolisthesis. Multilevel moderate degenerative spondylitic changes. Soft tissues: Unremarkable. Lung apices: In the right upper lobe a 1.7 x 1.1 cm solid nodule is seen, suspicious of malignancy (series 7 image 81). Significant biapical pleural parenchymal scarring. Other findings: . A 1.4 x 1.2 cm complex hypodense left thyroid nodule (series 7 image 154). Sonographic correlation is advised. CAROTID STENOSIS REFERENCE USING NASCET CRITERIA: % ICA stenosis = (1 - narrowest ICA diameter/diameter of distal cervical ICA) x 100. Mild - <50% stenosis. Moderate - 50-69% stenosis. Severe - 70-94% stenosis. Near occlusion - 95-99% stenosis. Occluded - 100% stenosis. IMPRESSION: CTA neck: Calcified atheromatous plaques of the bilateral carotid bulbs and proximal internal carotid arteries with up to 50% luminal narrowing as described above. No hemodynamically significant stenosis, aneurysm or acute pathology demonstrated. A 1.7 x 1.1 cm suspicious solid pulmonary nodule seen in the left upper lobe. Correlation with chest CT, PET/CT scan/biopsy recommended. Nonspecific 1.4 x 1.2 cm complex left thyroid nodule. Sonographic correlation is advised. Degenerative cervical spondylosis with C4 mild anterolisthesis.. Communications: Call Doctor Stroke Electronically signed by: Zoltan Campo MD, JING 01/31/25 21:[address] 01/31/25 21:50 CR Exam(s): CT HEAD Without Contrast EXAM: CT Head Without Intravenous Contrast CLINICAL HISTORY: Reason for exam: stroke, ffup critical. TECHNIQUE: Axial computed tomography images of the head/brain without intravenous contrast. CTDI is 35.65 mGy and DLP is 547.75 mGy-cm. Automated exposure control was utilized for the study. A dose lowering technique was utilized adhering to the principles of ALARA. COMPARISON: CT head: 01/31/2025 by 2023. FINDINGS: Image quality is hampered by motion artifact. Brain: Demonstrates in the interim a 1.5 x 0.7 cm focal hyperdensity extra-axially, laterally along the right frontal lobe with associated high density changes in the adjacent subarachnoid regions (series 2 image 15, 16), and laterally adjacent to the right frontal lobe area with encephalomalacia/gliosis. Age related cerebral atrophy with widening of the extra-axial spaces and ventricular dilatation. Periventricular areas of decreased attenuation within the white matter tracts likely from chronic microvascular disease. Bones/joints: No acute fracture. Soft tissues: Unremarkable. Sinuses: No active disease is evident in the visualized sinuses and mastoid air cells. IMPRESSION: Demonstrates in the interim a 1.5 x 0.7 cm extra-axial hyperdensity/focal subdural hemorrhage with likely associated regional subarachnoid hemorrhage. Otherwise findings are unchanged since resent today's CT head exam. . Communications: Call Doctor Intracranial Hemorrhage Electronically signed by: Zoltan Campo MD, JING 01/31/25 22:[address] 02/01/25 02:02 EXAM: CT head/brain wo con CLINICAL HISTORY: Dizziness, itch. TECHNIQUE: Axial non-contrast CT scan of the brain was performed from the skull base to the high parietal region. One of the following dose reduction techniques were utilized for this exam: Automated exposure control, adjustment of the mA and/or kV according to patient size, use of iterative reconstruction. COMPARISON: No available prior studies for comparison. FINDINGS: Brain Parenchyma: A hypodensity is seen implicating the right insular cortex and subcortical white matter, as well as the lateral aspect of the right high frontal lobe (part of the right MCA territory). Chronic microvascular ischemic changes. No evidence of related hemorrhagic changes. Ventricular System: Mildly dilated ventricular system, part of age-related involutional changes. Subarachnoid Spaces: Mildly enlarged ventricular system with deepened sulci. Cerebellum and Brainstem: Normal size and signal. No masses, lesions, or areas of abnormal density. Orbits: Normal appearance of the globes, optic nerves, and extraocular muscles. No evidence of orbital masses or abnormal density. Sinuses: Clear paranasal sinuses. No evidence of sinusitis or mucosal thickening. Mastoid Air Cells: Clear mastoid air cells. No evidence of mastoiditis. Skull: Normal skull morphology. IMPRESSION: 1. 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 Need clinical correlation. 2. Chronic microvascular ischemic changes. 3. Age-matched involutional brain changes. 4. Early changes of a stroke may not be detected on a CT scan. If strong clinical suspicion of stroke, then suggest MRI with diffusion-weighted imaging. Electronically signed by Arnoldo Ibarra 02-01-2025 03:56 AM Brain MRI 02/01/25 13:25 EXAM: MR brain wo/w con CLINICAL HISTORY: r/o stroke TECHNIQUE: MRI of the brain was performed with and without intravenous contrast administration. Sequences obtained include pre-contrast and post-contrast T1-weighted, T2-weighted, FLAIR (Fluid-Attenuated Inversion Recovery), DWI (Diffusion-Weighted Imaging), and ADC (Apparent Diffusion Coefficient) sequences. 6ml gadavist was administered intravenously. Images were sent through PACS for diagnostic interpretation. COMPARISON: CT Head done on the same day is reviewed. FINDINGS: Brain Parenchyma: There is an altered intensity area in the right temproparietal region appearing hyperintense on T2 and FLAIR not showing any restricted diffusion. 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 Post-Contrast Findings: An extraaxial dural based enhancing lesion in the right posterior parietal lobe likely signifying a meningiom. Ventricles and Sulci: Prominent intra and extra-axial csf spaces signifying senile involutionary changes. Brainstem and Cerebellum: Normal appearance of the brainstem and cerebellum without focal lesions or abnormal enhancement. Vessels: Intracranial vessels appear normal without evidence of vascular malformations or aneurysms. Skull and Calvarium: No evidence of skull vault lesions or abnormal marrow signal within the calvarium. IMPRESSION: 1. No definite area of restricted diffusion to suggest acute infarctiona. 2. 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 (stable) 3. 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 (not seen in CT head without contrast) Follow-up is advised. 4. Senile involutionary changes and moderate microvascular angiopathic changes. (stable) Electronically signed by Arnoldo Ibarra 02-01-2025 9:01 PM (5) UTI (urinary tract infection) Hematuria presence: without hematuria Urinary tract infection type: site unspecified Qualified Code(s): N39.0 - Urinary tract infection, site not specified
[2025-02-02] MEDS: CHOLECALCIFEROL 10 MCG (400 UNITS) TAB PO SCH (08:44)
[2025-02-02 08:52] LABS: Estimated Average Glucose 103 mg/dl; Hemoglobin A1C 5.2 % (4.5-5.6)
--- NOTE | 2025-02-02 09:14 | Electrocardiogram Report ---
Test Reason : Blood Pressure : */* mmHG Vent. Rate : 73 BPM Atrial Rate : 73 BPM P-R Int : 206 ms QRS Dur : 92 ms QT Int : 412 ms P-R-T Axes : 58 27 70 degrees QTcB Int : 453 ms Normal sinus rhythm Nonspecific T wave abnormality Abnormal ECG When compared with ECG of 31-Jan-2025 10:24, Nonspecific T wave abnormality now evident in Anterior leads Nonspecific T wave abnormality, improved in Lateral leads Confirmed by Kika Morales ([id number]) on 02/02/2025 9:13:38 AM Referred By: REFERRED SELF Confirmed By: Kika Morales
--- NOTE | 2025-02-02 14:19 | Communication Note ---
Date of Service: February 02, 2025 MRI brain reviewed. No evidence of intracranial hemorrhage. Noted enhancing lesion, agree with follow up imaging as recommended. Recommend ambulatory referral to follow up with NSG and obtain repeat MRI brain with and without contrast in one month.
[2025-02-02] MEDS: POTASSIUM CHLORIDE 10 MEQ TABCR PO ONE (16:39)
[2025-02-02] MEDS: DOCUSATE SODIUM 100 MG CAP PO SCH (20:30)
[2025-02-03 06:25] LABS: Hematocrit (blood only) 29.4 % (37.0-47.0); Hemoglobin 9.6 g/dl (12.0-16.0); Mean Corpuscular Hemoglobin 28.2 pg (25.0-34.0); Mean Corpuscular Hgb Conc 32.7 g/dL (32.0-36.0); Mean Corpuscular Volume 86.5 fL (80.0-100.0); Mean Platelet Volume 10.2 fL (9.4-12.4); Platelet Count 211 K/uL (130-400); RDW Coefficient of Variation 16.6 % (11.5-14.5); White Blood Count 8.76 K/ul (4.8-10.8)
[2025-02-03 06:45] LABS: BUN Creatinine Ratio 16.3 (10-20); Calcium 8.2 mg/dl (8.6-10.3); Creatinine Clr Calc Pharmacy 72.8 ml/min; Potassium 3.8 mmol/L (3.5-5.1)
[2025-02-03 06:47] LABS: Prothrombin Time 10.6 Seconds (9.0-12.0)
--- NOTE | 2025-02-03 07:04 | Hospitalist Progress Note ---
Date of Service February 03, 2025 Assessment & Plan (1) Near syncope: (2) Acute anemia: Plan: Melina Blankenship is an 89y/o F with PMHx significant for HLD, tubular adenoma of colon, bilateral hip arthritis, seizure disorder on Keppra, macular degeneration of both eyes, history of spinal fracture, spinal stenosis of lumbosacral region, history of CVA on Coumadin, intermittent BLE and BUE tremors per daughter and history of skin cancer who is admitted on 01/29/25 on our service for further evaluation of generalized weakness and near syncopal episode. Notable decline in Hgb during hospital course requiring transfusion of 1U PRBCs on 01/30/25. Suspect acute blood loss anemia in the setting of warfarin use 2/2 recent small bleeding wound on the posterior aspect of the patient's LUE; wound was reportedly oozing for 3-4 days before being able to be stopped. Repeat CTAP imaging with no evidence of retroperitoneal hemorrhage to explain her worsening anemia. Initial concern for occult GI bleeding 2/2 dark stools however patient was FOBT negative on 01/30/25 and patient was without any signs of overt GI bleeding. Family declined option to pursue any endoscopic intervention for further evaluation to r/o possible upper GI bleeding. Initially on IV PPI drip which was transitioned to IV PPI BID on 02/01/25. Darker stools noted this morning so will repeat FOBT and continue IV PPI BID for now although suspicion for occult GI bleeding is low at this time. Hgb slowly stabilizing at 9.6 today; routine anemia panel personally reviewed. Ferritin/iron levels on lower side of normal range therefore will start daily ferrous sulfate supplementation. Restart warfarin and ASA today. INR 1.0 today. Follow daily CBC and PT/INR testing. (3) Unresponsive episode: Plan: 01/31/25: Patient found to be unresponsive to verbal stimulation and sternal rub at 20:10. Code purple called. Stroke alert called. * Head CT @ 20:23 - Remote infarction with encephalomalacia in the right MCA territory. Chronic involutional and ischemic changes of the brain. * Head CTA - No large vessel occlusion, significant stenosis or aneurysm demonstrated. Neck CTA - Calcified atheromatous plaques of the bilateral carotid bulbs and proximal internal carotid arteries with up to 50% luminal narrowing. No hemodynamically significant stenosis, aneurysm or acute pathology demonstrated. * Repeat Head CT @ 21:50 - Demonstrates in the interim a 1.5 x 0.7cm extra-axial hyperdensity/focal subdural hemorrhage with likely associated regional subarachnoid hemorrhage. 02/01/25: CT head at 02:02 with right indeterminate age, likely chronic non- hemorrhagic ischemic insult, implicating the insular and high frontal region (MCA territory). Also showed chronic microvascular ischemic changes and age- matched involutional brain changes. DDx of stroke vs. unwitnessed seizure with postictal state and possible concern for ICH 2/[address] head by radiology. Patient became awake and oriented to person/place shortly after this event occurred. Brain MRI on 02/01/25: NO definite area of restricted diffusion to suggest acute infarction. Right temporoparietal altered signal intensity area appearing hyperintense on T2 and FLAIR with ex-vacuo dilatation of ipsilateral lateral ventricle signifying old infarct/encephalomalacia (stable). A right posterior parietal extra-axial dural based enhancing lesion likely a small meningioma (not seen on CT head w/o contrast). Senile involutionary changes and moderate microvascular angiopathic changes (stable). NO sign of ICH on brain MRI as per above. EEG ordered but not yet completed. Keppra level low. No seizure-like activity reported in the past 24 hours. Keppra dose increased to 1000mg BID from 750mg BID. Appreciate neurology consult. Recommend ambulatory referral to follow up with NSG and obtain repeat MRI brain with and without contrast in one month. Patient appears to be mentating at her baseline cognitive status today, 02/03/25 . Appreciate PT/OT evaluations. Further discussed above brain MRI findings with one of her daughters at bedside this morning. Resuming warfarin and ASA today as per above. Some dizziness this morning with ambulation but resolves quickly - will check orthostatics. Can utilize PRN meclizine. Continue seizure precautions. Continue statin. (4) Delirium: Plan: Improving. No further reported incidences of visual hallucinations. Family has been present at bedside throughout the day during her hospital stay. Continue with delirium prevention measures: raising blinds during the day, closing at night, frequent re-orientation, contact with family/friends, explaining procedures/nursing care measures prior to physical contact, correct any hearing and visual impairments. (5) UTI (urinary tract infection): Plan: Initial UA suggestive of infection given 1+ LE, 6-10 WBC and 4+ bacteria. Treated with IV Rocephin x 3 days. Urine culture negative. Antibiotics have been discontinued. (6) Occasional tremors: (7) History of seizure disorder: Plan: Daughter, Talya, reports that patient has intermittent BUE and BLE tremors at baseline. Keppra dose increased as per above. (8) Elevated troponin: Plan: Likely demand ischemia 2/2 above. EKG without evidence of ST changes on admission. Troponin now flattened. (9) Abnormal CT of the abdomen: Plan: CTAP on 01/29/25: Fullness centrally in both kidneys. Much of this appears to represent parapelvic cysts though it is difficult to exclude some degree of bilateral hydronephrosis without delayed images. There is no dilated ureter or urinary tract calculus. No other visually acute findings. Renal function remains stable. No evidence of JOANN. Did check renal/bladder US on 01/30/25 which redemonstrated cortical thinning of the kidneys and bilateral renal sinus cysts however there was no evidence of hydronephrosis. Continue to closely monitor renal function. (10) Pulmonary nodules: Plan: Incidental finding of two 11mm nodules in the R lung on CXR done 01/29/25. Neck CTA on 01/31/25 noted a 1.7 x 1.1cm suspicious solid pulmonary nodule seen in the AD[facility]. Will need outpatient chest CT and/or PET scan for further evaluation. Discussed these findings with one of the patients' daughters present at bedside this morning and she expressed understanding of such. CXR also noted mild peribronchial thickening of the central bronchi however patient is without any respiratory complaints. Suspect noninfectious etiology. (11) Thyroid nodule: Plan: Neck CTA on 01/31/25 also incidentally noted a nonspecific 1.4 x 1.2cm complex left thyroid nodule. Will need outpatient thyroid US. Need to discuss this finding with family prior to discharge. Other Chronic Medical Conditions: HLD - Continue statin. DVT Prophylaxis: SCDs/TEDs and resuming warfarin as per above. Code Status: DNR/DNI PCP: Carol Encarnacion PA-C Disposition: Discharge plans uncertain at this time. Patient lives at home alone but has family nearby whom are very involved in her care. PT/OT recommending rehabilitation placement. Updated patient's daughter at bedside this morning on the above plans of care. Possible discharge in the next 1-2 days. Patient seen in collaboration with Dr. Romero. Please see addendum. I spent a total of 65 minutes coordinating, documenting, and providing care for this patient excluding time spent in the performance of separately billed services or time spent by another provider/QHP. This included personally reviewing all current laboratories and imaging studies, medical reconciliation, outpatient chart review and discussion with specialists. This chart was completed in part utilizing Speech Voice Recognition Software. Grammatical errors, random word insertions, pronoun errors, and incomplete sentences are an occasional consequence of this system due to software limitations, ambient noise, and hardware issues. Any formal questions or concerns about the content, text, or information contained within the body of this dictation should be directly addressed to the provider for clarification. Admission and Anticipated Discharge Date Admission Date: January 30, 2025 Supervising Physician Co-Signing Physician Notes Attending Addendum: Case reviewed with the advanced practitioner. I have reviewed the advanced practitioner's documentation on the date of service referenced in note, and I agree with, and take responsibility for the plan of care. please refer to her notes for full details patient seen and examined, records reviewed by myself as well diagnoses and plan of care as per advanced practitioner's notes I spent a total of 20 minutes coordinating, documenting, and providing care for this patient, excluding time spent in the performance of separately billed services or time spent by another provider/QHP. Adal Romero MD Subjective Patient seen and examined in room [address] [place] [address]. Patient resting in bed with one of her daughters present at bedside. Engaged in conversation. Offers no complaints. Denies any SOB, chest pain, abdominal pain, dysuria or chills with directed questioning. A&Ox3 with few periods of forgetfulness. Very pleasant. Recalls some events from this past weekend. Tolerated breakfast this morning wit hout any issue. Feels tired but eager to work with therapy today. No further visual hallucinations reported. Last BM yesterday evening. Review of Systems Review of Systems: At least ten systems reviewed and negative, except as noted in the subjective section. Physical Exam Physical Exam: General/Neurologic: Elderly, F. NAD. Sitting up in bed, fully awake. A&Ox3. Very pleasant. One of her daughters is present at bedside. Few periods of forgetfulness however is very well engaged in conversation. Recalls some events that happened over the weekend. HEENT: Normocephalic, atraumatic. Conjunctivae normal, anicteric sclerae. External ear and nose normal, oropharynx normal. Respiratory: Normal respiratory effort, lungs clear to auscultation bilaterally. On room air. No accessory muscle use. Cardiovascular: Tachycardic rate with HR ~90bpm, regular rhythm. + systolic murmur. No BLE edema. Abdomen/GI: Normal bowel sounds, soft, nondistended. Nontender to palpation in all abdominal regions. : + Boggs catheter intact and draining clear, yellow urine without any issues. Extremities/MSK: No cyanosis or clubbing. Actively moves all extremities. 4/5 strength in all extremities. + bandaging overlying wound on posterior aspect of LUE which is C/D/I. No evidence of oozing or seeping. Has intermittent BUE and BLE tremors which is chronic per prior discussion with family. Results & Data Results & Data Vital Signs (Past 12 Hours) Vital Signs Temp Pulse Pulse Resp BP Pulse Ox O2 Del Method 02/03/25 03:08 36.9 C 110 H 18 137/84 92 Room Air 02/02/25 23:19 36.9 C 98 H 18 131/83 91 Room Air 02/02/25 21:59 89 02/02/25 19:29 36.7 C 89 18 101/64 94 Room Air Laboratory Results Short CBC 02/03/25 Range/Units 06:03 WBC 8.76 (4.8-10.8) K/ul Hgb 9.6 L (12.0-16.0) g/dl Hct 29.4 L (37.0-47.0) % Plt Count 211 (130-400) K/uL BMP 02/03/25 06:03 Sodium 139 Potassium 3.8 Chloride 105 Carbon Dioxide 30 BUN 8 Creatinine 0.49 L Glucose 108 H Calcium 8.2 L (5) UTI (urinary tract infection) Hematuria presence: without hematuria Urinary tract infection type: site unspecified Qualified Code(s): N39.0 - Urinary tract infection, site not specified
[2025-02-03] MEDS: FERROUS SULFATE 325 MG TAB PO SCH (16:27)
[2025-02-03] MEDS: WARFARIN SOD 6 MG TAB PO SCH (16:27)
[2025-02-03] MEDS: NYSTATIN POWDER 15GM BTL EXT PRN (20:36)
[2025-02-04 06:17] LABS: Hematocrit (blood only) 29.9 % (37.0-47.0); Hemoglobin 9.6 g/dl (12.0-16.0); Mean Corpuscular Hgb Conc 32.1 g/dL (32.0-36.0); Mean Corpuscular Volume 87.2 fL (80.0-100.0); Platelet Count 208 K/uL (130-400); RDW Coefficient of Variation 16.6 % (11.5-14.5); RDW Standard Deviation 52.8 fL (36.4-46.3); Red Blood Count 3.43 M/uL (4.20-5.40); White Blood Count 7.78 K/ul (4.8-10.8)
[2025-02-04 06:33] LABS: BUN Creatinine Ratio 17.6 (10-20); Calcium 8.4 mg/dl (8.6-10.3); Creatinine Clr Calc Pharmacy 69.9 ml/min; Magnesium 2.1 mg/dl (1.7-2.4); Potassium 3.8 mmol/L (3.5-5.1)
[2025-02-04 07:02] LABS: Prothrombin Time 10.9 Seconds (9.0-12.0)
[2025-02-04] MEDS: ASPIRIN 81 MG ECTAB PO SCH (10:38)
--- NOTE | 2025-02-04 13:03 | Hospitalist Progress Note ---
Date of Service February 04, 2025 Assessment & Plan (1) Near syncope: (2) Acute anemia: Plan: Melina Blankenship is an 89y/o F with PMHx significant for HLD, tubular adenoma of colon, bilateral hip arthritis, seizure disorder on Keppra, macular degeneration of both eyes, history of spinal fracture, spinal stenosis of lumbosacral region, history of CVA on Coumadin, intermittent BLE and BUE tremors per daughter and history of skin cancer who is admitted on 01/29/25 on our service for further evaluation of generalized weakness and near syncopal episode. Notable decline in Hgb during hospital course requiring transfusion of 1U PRBCs on 01/30/25. Suspect acute blood loss anemia in the setting of warfarin use 2/2 recent small bleeding wound on the posterior aspect of the patient's LUE; wound was reportedly oozing for 3-4 days before being able to be stopped. Repeat CTAP imaging with no evidence of retroperitoneal hemorrhage to explain her worsening anemia. Initial concern for occult GI bleeding 2/2 dark stools however patient was FOBT negative on 01/30/25 and patient was without any signs of overt GI bleeding. Family declined option to pursue any endoscopic intervention for further evaluation to r/o possible upper GI bleeding. Initially on IV PPI drip which was transitioned to IV PPI BID on 02/01/25. Darker stools noted on 02/03/25 however suspect this a result of her iron supplement given her Hgb has stabilized; Hgb remains at 9.6 today. Warfarin and ASA restarted on 02/03/25. INR 1.0 today - will hold off on bridging patient for now 2/2 recent bleeding wound as per above. Continue following daily PT/INR and H/H trends. Will transition off IV PPI BID given low suspicion of occult GI bleeding; can resume home famotidine tomorrow. (3) Unresponsive episode: Plan: 01/31/25: Patient found to be unresponsive to verbal stimulation and sternal rub at 20:10. Code purple called. Stroke alert called. * Head CT @ 20:23 - Remote infarction with encephalomalacia in the right MCA territory. Chronic involutional and ischemic changes of the brain. * Head CTA - No large vessel occlusion, significant stenosis or aneurysm demonstrated. Neck CTA - Calcified atheromatous plaques of the bilateral carotid bulbs and proximal internal carotid arteries with up to 50% luminal narrowing. No hemodynamically significant stenosis, aneurysm or acute pathology demonstrated. * Repeat Head CT @ 21:50 - Demonstrates in the interim a 1.5 x 0.7cm extra-axial hyperdensity/focal subdural hemorrhage with likely associated regional subarachnoid hemorrhage. 02/01/25: CT head at 02:02 with right indeterminate age, likely chronic non- hemorrhagic ischemic insult, implicating the insular and high frontal region (MCA territory). Also showed chronic microvascular ischemic changes and age- matched involutional brain changes. DDx of stroke vs. unwitnessed seizure with postictal state and possible concern for ICH 2/[address] head by radiology. Patient became awake and oriented to person/place shortly after this event occurred. Brain MRI on 02/01/25: NO definite area of restricted diffusion to suggest acute infarction. Right temporoparietal altered signal intensity area appearing hyperintense on T2 and FLAIR with ex-vacuo dilatation of ipsilateral lateral ventricle signifying old infarct/encephalomalacia (stable). A right posterior parietal extra-axial dural based enhancing lesion likely a small meningioma (not seen on CT head w/o contrast). Senile involutionary changes and moderate microvascular angiopathic changes (stable). NO sign of ICH on brain MRI as per above. EEG ordered but not yet completed. Keppra level low. No seizure-like activity reported in the past 24 hours. Keppra dose increased to 1000mg BID from 750mg BID. Appreciate neurology consult. Recommend ambulatory referral to follow up with NSG and obtain repeat MRI brain with and without contrast in one month. Patient appears to be mentating at her baseline cognitive status today, 02/03/25 . Appreciate PT/OT evaluations. Further discussed above brain MRI findings with her daughter, Talya, at bedside this morning. Warfarin and ASA resumed yesterday as per above. Prior dizziness has resolved. Continue seizure precautions. Continue statin. (4) Delirium: Plan: Improving. No further reported incidences of visual hallucinations. Family has been present at bedside throughout the day during her hospital stay. Continue w ith delirium prevention measures: raising blinds during the day, closing at night, frequent re-orientation, contact with family/friends, explaining procedures/nursing care measures prior to physical contact, correct any hearing and visual impairments. (5) UTI (urinary tract infection): Plan: Initial UA suggestive of infection given 1+ LE, 6-10 WBC and 4+ bacteria. Treated with IV Rocephin x 3 days. Urine culture negative. Antibiotics have been discontinued. Given sleepiness this morning and Boggs catheter presence, will check repeat UA today. (6) Occasional tremors: (7) History of seizure disorder: Plan: Daughter, Talya, reports that patient has intermittent BUE and BLE tremors at baseline. Keppra dose increased as per above. (8) Elevated troponin: Plan: Likely demand ischemia 2/2 above. EKG without evidence of ST changes on admission. Troponin now flattened. (9) Abnormal CT of the abdomen: Plan: CTAP on 01/29/25: Fullness centrally in both kidneys. Much of this appears to represent parapelvic cysts though it is difficult to exclude some degree of bilateral hydronephrosis without delayed images. There is no dilated ureter or urinary tract calculus. No other visually acute findings. Renal function remains stable. No evidence of JOANN. Did check renal/bladder US on 01/30/25 which redemonstrated cortical thinning of the kidneys and bilateral renal sinus cysts however there was no evidence of hydronephrosis. Continue to closely monitor renal function. (10) Pulmonary nodules: Plan: Incidental finding of two 11mm nodules in the R lung on CXR done 01/29/25. Neck CTA on 01/31/25 noted a 1.7 x 1.1cm suspicious solid pulmonary nodule seen in the [facility]. Will need outpatient chest CT and/or PET scan for further evaluation. Discussed these findings with her daughter, Talya, who was present at bedside this morning and she expressed understanding of such. CXR also noted mild peribronchial thickening of the central bronchi however patient is without any respiratory complaints. Suspect noninfectious etiology. (11) Thyroid nodule: Plan: Neck CTA on 01/31/25 also incidentally noted a nonspecific 1.4 x 1.2cm complex left thyroid nodule. Will need outpatient thyroid US. Discussed this finding with her daughter, Talya, who was present at bedside this morning and she expressed understanding of such. Other Chronic Medical Conditions: HLD - Continue statin. DVT Prophylaxis: SCDs/TEDs and warfarin. Code Status: DNR/DNI PCP: Carol Encarnacion PA-C Disposition: Plan for discharge to [facility] tomorrow if patient remains clinically stable. Spoke with the patient's daughter, Talya, at bedside this morning and educated her on the above plans of care. She expressed understanding and all of her questions were answered to the best of my ability. Patient seen in collaboration with Dr. Romero. Please see addendum. I spent a total of 60 minutes coordinating, documenting, and providing care for this patient excluding time spent in the performance of separately billed services or time spent by another provider/QHP. This included personally reviewing all current laboratories and imaging studies, medical reconciliation, outpatient chart review and discussion with specialists. This chart was completed in part utilizing Speech Voice Recognition Software. Grammatical errors, random word insertions, pronoun errors, and incomplete sentences are an occasional consequence of this system due to software limitations, ambient noise, and hardware issues. Any formal questions or concerns about the content, text, or information contained within the body of this dictation should be directly addressed to the provider for clarification. Admission and Anticipated Discharge Date Admission Date: January 30, 2025 Supervising Physician Co-Signing Physician Notes Attending Addendum: Case reviewed with the advanced practitioner. I have reviewed the advanced practitioner's documentation on the date of service referenced in note, and I agree with, and take responsibility for the plan of care. please refer to her notes for full details patient seen and examined, records reviewed by myself as well diagnoses and plan of care as per advanced practitioner's notes I spent a total of 20 minutes coordinating, documenting, and providing care for this patient, excluding time spent in the performance of separately billed services or time spent by another provider/QHP. Adal Romero MD Subjective Patient seen and examined in room E211-. [facility]. DaughterTalya, present at bedside. Patient quite tired this morning but slept very well overnight. Did participate with PT/OT yesterday. She is easily arousable and does participate appropriately with conversation however. No further incidences of visual hallucinations. Discussed plans for discharge to [facility] with Talya. Review of Systems Review of Systems: At least ten systems reviewed and negative, except as noted in the subjective section. Physical Exam Physical Exam: General/Neurologic: Elderly, F. NAD. Laying down in bed. Quite sleepy but easily arousable and becomes engaged in conversation. DaughterTalya, present at bedside. HEENT: Normocephalic, atraumatic. Conjunctivae normal, anicteric sclerae. External ear and nose normal, oropharynx normal. Respiratory: Normal respiratory effort, lungs clear to auscultation bilaterally. On room air. No accessory muscle use. Cardiovascular: Regular rate and rhythm. + systolic murmur. No BLE edema. Abdomen/GI: Normal bowel sounds, soft, nondistended. Nontender to palpation in all abdominal regions. : + Boggs catheter intact and draining clear, yellow urine without any issues. Extremities/MSK: No cyanosis or clubbing. Extremity strength testing not performed 2/2 patient's tiredness. + bandaging overlying wound on posterior aspect of LUE which is C/D/I. No evidence of oozing or seeping. Has intermittent BUE and BLE tremors which is chronic per prior discussion with family. Results & Data Results & Data Vital Signs (Past 12 Hours) Vital Signs Temp Pulse Pulse Resp BP Pulse Ox O2 Del Method 02/04/25 11:14 36.5 C 90 20 105/64 92 Room Air 02/04/25 07:26 36.4 C L 88 18 116/73 94 Room Air 02/04/25 07:22 Room Air 02/04/25 07:21 88 02/04/25 04:55 36.6 C 98 H 16 114/68 92 Room Air Laboratory Results Short CBC 02/04/25 Range/Units 05:54 WBC 7.78 (4.8-10.8) K/ul Hgb 9.6 L (12.0-16.0) g/dl Hct 29.9 L (37.0-47.0) % Plt Count 208 (130-400) K/uL BMP 02/04/25 05:54 Sodium 141 Potassium 3.8 Chloride 105 Carbon Dioxide 34 H BUN 9 Creatinine 0.51 L Glucose 102 H Calcium 8.4 L (5) UTI (urinary tract infection) Hematuria presence: without hematuria Urinary tract infection type: site unspecified Qualified Code(s): N39.0 - Urinary tract infection, site not specified
[2025-02-04 13:49] LABS: Appearance Urine Clear (Clear); Bacteria Urine Automated None Seen (None Seen); Bilirubin Urine Negative (Negative); Blood Urine Negative (Negative); Color Urine Yellow; Epithelial Cell Urine Auto 0-2 /hpf (0-2); Glucose Urine UA Negative (Negative); Ketones Urine Trace (Negative); Leukocyte Esterase Urine 2+ (Negative); Mucus Urine Present (None Prsent); Nitrite Urine Negative (Negative); Protein Urine Negative (Negative); RBC Urine Automated 0-2 /hpf (0-2); Specific Gravity Urine 1.017 (1.000-1.030); Urobilinogen Urine Negative (Negative); WBC Urine Automated 21-50 /hpf (0-5)
[2025-02-04] MEDS: WARFARIN SOD 3 MG TAB PO SCH (16:40)
[2025-02-05 06:13] LABS: Hematocrit (blood only) 28.2 % (37.0-47.0); Hemoglobin 9.1 g/dl (12.0-16.0); Mean Corpuscular Hgb Conc 32.3 g/dL (32.0-36.0); Mean Corpuscular Volume 86.8 fL (80.0-100.0); Platelet Count 220 K/uL (130-400); RDW Coefficient of Variation 16.1 % (11.5-14.5); RDW Standard Deviation 50.4 fL (36.4-46.3); Red Blood Count 3.25 M/uL (4.20-5.40); White Blood Count 6.35 K/ul (4.8-10.8)
[2025-02-05 06:31] LABS: BUN Creatinine Ratio 15.2 (10-20); Calcium 8.3 mg/dl (8.6-10.3); Creatinine Clr Calc Pharmacy 77.5 ml/min; Potassium 3.6 mmol/L (3.5-5.1)
[2025-02-05 06:39] LABS: INR 1.1 (0.9-1.1); Prothrombin Time 11.9 Seconds (9.0-12.0)
--- NOTE | 2025-02-05 09:16 | Discharge Summary ---
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 Notable decline in Hgb during hospital course requiring transfusion of 1U PRBCs on 01/30/25. Suspect acute blood loss anemia in the setting of warfarin use 2/2 recent small bleeding wound on the posterior aspect of the patient's LUE; wound was reportedly oozing for 3-4 days before being able to be stopped. Repeat CTAP imaging with no evidence of retroperitoneal hemorrhage to explain her worsening anemia. Initial concern for occult GI bleeding 2/2 dark stools however patient was FOBT negative on 01/30/25 and patient was without any signs of overt GI bleeding. Family declined option to pursue any endoscopic intervention for further evaluation to r/o possible upper GI bleeding. Initially on IV PPI drip which was transitioned to IV PPI BID on 02/01/25. Darker stools noted on 02/03/25 however suspect this a result of her iron supplement given her Hgb has stabilized; Hgb 9.1 on day of discharge. Warfarin and ASA restarted on 02/03/25. Continue home warfarin dosing on discharge with repeat PT/INR testing in about 2 days. 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 (3) Unresponsive episode: 01/31/25: Patient found to be unresponsive to verbal stimulation and sternal rub at 20:10. Code purple called. Stroke alert called. * Head CT @ 20:23 - Remote infarction with encephalomalacia in the right MCA territory. Chronic involutional and ischemic changes of the brain. * Head CTA - No large vessel occlusion, significant stenosis or aneurysm demonstrated. Neck CTA - Calcified atheromatous plaques of the bilateral carotid bulbs and proximal internal carotid arteries with up to 50% luminal narrowing. No hemodynamically significant stenosis, aneurysm or acute pathology demonstrated. * Repeat Head CT @ 21:50 - Demonstrates in the interim a 1.5 x 0.7cm extra-axial hyperdensity/focal subdural hemorrhage with likely associated regional subarachnoid hemorrhage. 02/01/25: CT head at 02:02 with right indeterminate age, likely chronic non- hemorrhagic ischemic insult, implicating the insular and high frontal region (MCA territory). Also showed chronic microvascular ischemic changes and age- matched involutional brain changes. DDx of stroke vs. unwitnessed seizure with postictal state and possible concern for ICH 2/[address] head by radiology. Patient became awake and oriented to person/place shortly after this event occurred. Brain MRI on 02/01/25: NO definite area of restricted diffusion to suggest acute infarction. Right temporoparietal altered signal intensity area appearing hyperintense on T2 and FLAIR with ex-vacuo dilatation of ipsilateral lateral ventricle signifying old infarct/encephalomalacia (stable). A right posterior parietal extra-axial dural based enhancing lesion likely a small meningioma (not seen on CT head w/o contrast). Senile involutionary changes and moderate microvascular angiopathic changes (stable). NO sign of ICH on brain MRI as per above. Keppra level low. No seizure-like activity reported otherwise. Keppra dose increased to 1000mg BID from 750mg BID. Appreciate neurology consult. Recommend ambulatory referral to follow up with NSG and obtain repeat MRI brain with and without contrast in one month. Patient appears to be mentating at her baseline cognitive status on day of discharge. Outpatient EEG testing to be arranged through PCP. (4) Delirium: Noted during admission - now resolved. No further reported incidences of visual hallucinations. (5) UTI (urinary tract infection): Initial UA suggestive of infection given 1+ LE, 6-10 WBC and 4+ bacteria. Treated with IV Rocephin x 3 days. Initial urine culture negative. Repeat UA on 02/04/25 due to sleepiness. No evidence of bacteria but does report 2+ LE and 21-50 WBC. Repeat urine culture pending at time of discharge. Boggs catheter in place at time of discharge. Was initially inserted on 01/31/25 during her above unresponsive episode. Likely can be removed in 1-2 days. (6) Occasional tremors: (7) History of seizure disorder: Daughter, Talya, reports that patient has intermittent BUE and BLE tremors at baseline. Keppra dose increased as per above. (8) Elevated troponin: Likely demand ischemia 2/2 above. EKG without evidence of ST changes on admission. Troponin flattened. ACS ruled-out. (9) Abnormal CT of the abdomen: CTAP on 01/29/25: Fullness centrally in both kidneys. Much of this appears to represent parapelvic cysts though it is difficult to exclude some degree of bilateral hydronephrosis without delayed images. There is no dilated ureter or urinary tract calculus. No other visually acute findings. Renal function remains stable at time of discharge. No evidence of JOANN. Did check renal/bladder US on 01/30/25 which redemonstrated cortical thinning of the kidneys and bilateral renal sinus cysts however there was no evidence of hydronephrosis. (10) Pulmonary nodules: Incidental finding of two 11mm nodules in the R lung on CXR done 01/29/25. Neck CTA on 01/31/25 noted a 1.7 x 1.1cm suspicious solid pulmonary nodule seen in the ADIS. Will need outpatient chest CT and/or PET scan for further evaluation. CXR also noted mild peribronchial thickening of the central bronchi however patient is without any respiratory complaints. Suspect noninfectious etiology. (11) Thyroid nodule: Neck CTA on 01/31/25 incidentally noted a nonspecific 1.4 x 1.2cm complex left thyroid nodule. Will need outpatient thyroid US. Other Chronic Medical Conditions: HLD - Continue statin. PCP: Carol Encarnacion PA-C Disposition: Patient is being discharged in stable condition to [facility]. Discussed above discharge plans with her daughter, Talya, at bedside prior to discharge. Provided daughter with detailed outline of essential follow-up appointments, repeat labs and imaging. She expressed understanding and all of her questions were answered to the best of my ability. Patient seen in collaboration with Dr. Paez. Please see addendum. I spent a total of 80 minutes coordinating, documenting, and providing care for this patient excluding time spent in the performance of separately billed services or time spent by another provider/QHP. This included personally reviewing all current laboratories and imaging studies, medical reconciliation, outpatient chart review and discussion with specialists. This chart was completed in part utilizing Speech Voice Recognition Software. Grammatical errors, random word insertions, pronoun errors, and incomplete sentences are an occasional consequence of this system due to software limitations, ambient noise, and hardware issues. Any formal questions or concerns about the content, text, or information contained within the body of this dictation should be directly addressed to the provider for clarification. Notes For Next Care Provider Need to arrange PCP hospital discharge follow-up appointment within the next 1-2 weeks. Will need repeat CBC testing at PCP follow-up appointment. Repeat PT/INR testing due in 2 days. Need to arrange outpatient EEG testing. Recommend repeat brain MRI with and without contrast in 1 month. Recommend follow-up chest CT with and without contrast in 1 month. Recommend nonurgent thyroid ultrasound to be completed within the next 1 to 2 months. Will also need repeat Keppra level drawn in the next 4 to 6 weeks to monitor response to increased Keppra dose. Medication Changes From Visit 1. Keppra level found to be subtherapeutic therefore dose increased to 1000mg twice daily. Admission HPI Per Admitting Provider History obtained from patient, family, and records. 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 Patient noted to have bleeding spot on left arm after she scratched a seborrheic keratosis lesion last week as per daughter. Patient consulted ER 3 days ago. Gelfoam applied to punctate wound on posterior left upper extremity. Bleeding controlled following ER visit as per family. Yesterday, patient noted dizziness symptoms described as lightheadedness. Goldsmith like she was going to pass out. Denies chest pain, SOB. Achy right-sided abdominal pain without black/bloody stools. SBP 80s upon EMS arrival at patient's home. 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 NAD. Laying down in bed. A&Ox3. Engaged in conversation. Daughter, Talya, present at bedside. HEENT: Normocephalic, atraumatic. Conjunctivae normal, anicteric sclerae. External ear and nose normal, oropharynx normal. Respiratory: Normal respiratory effort, lungs clear to auscultation bilaterally. On room air. No accessory muscle use. Cardiovascular: Regular rate and rhythm. + systolic murmur. No BLE edema. Abdomen/GI: Normal bowel sounds, soft, nondistended. Nontender to palpation in all abdominal regions. : + Boggs catheter intact and draining clear, yellow urine without any issues. Extremities/MSK: No cyanosis or clubbing. Extremity strength intact. + bandaging overlying wound on posterior aspect of LUE which is C/D/I. No evidence of oozing or seeping. Has intermittent BUE and BLE tremors which is chronic per prior discussion with family. Updated Medication List Medication Instructions Recorded Confirmed Type aspirin 81 mg capsule 81 mg PO QAM 01/29/24 01/30/25 History calcium carbonate 500 mg PO QAM 01/29/24 01/30/25 History lbgopuauqmxr-thfeqfcp-gilqsa tablet 1 tab PO QAM 01/29/24 01/30/25 History pravastatin 20 mg tablet 20 mg PO HS 01/29/24 01/30/25 History vit C 250 mg-vit E 90 mg-zinc 40 1 tab PO BID 01/29/24 01/30/25 History mg-copper 1 bo-snjiwy-dyobkm capsule (PreserVision AREDS-2) vitamin B12 0.5 mg-folic acid 1 mg 1 tab PO WK 01/29/24 01/30/25 History tablet warfarin 6 mg tablet 6 mg PO 6XWK 01/29/24 01/30/25 History peg 3350-electrolytes 236 240 ml PO Q10M #4,000 mL 02/01/24 01/30/25 Rx gram-22.74 gram-6.74 gram-5.86 gram solution (GaviLyte-G) cholecalciferol (vitamin D3) 10 400 unit PO DAILY 01/30/25 01/30/25 History mcg (400 unit) tablet docusate sodium 100 mg capsule 100 mg PO Q2D 01/30/25 01/30/25 History famotidine 40 mg tablet 40 mg PO DAILY 01/30/25 01/30/25 History warfarin 6 mg tablet 3 mg PO WK 01/30/25 01/30/25 History ferrous sulfate 325 mg (65 mg 325 mg PO BIDM #60 tabs 02/05/25 Rx iron) tablet,delayed release levetiracetam 500 mg tablet 1,000 mg (2 x 500 mg) PO BID #120 02/05/25 Rx (Keppra) tabs meclizine 12.5 mg tablet 12.5 mg PO Q8H PRN dizziness #30 02/05/25 Rx tabs Hospital Stay Data Consultations 01/29/25 23:22 ED Decision to Admit Stat 01/30/25 14:55 Consult Gastroenterology Routine 02/01/25 04:50 Consult Neurology Routine Diagnostic Imagining Performed 01/29/25 23:18 CT head/brain wo con Stat IMPRESSION: No evidence of acute intracranial pathology. 01/29/25 23:25 CT Abd and Pelvis [CT abd pelvis IV con only] Stat IMPRESSION: Fullness centrally in both kidneys. Much of this appears to represent parapelvic cysts though it is difficult to exclude some degree of bilateral hydronephrosis without delayed images. There is no dilated ureter or urinary tract calculus. No other visually acute findings. 01/30/25 09:15 US Renal Bladder [US renal/blad retro comp] Urgent IMPRESSION: 1. Cortical thinning of the kidneys redemonstrated without hydronephrosis. 2. 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 01/30/25 15:05 CT Abd and Pelvis [CT abdomen pelvis wo/w con] Urgent Impression: 1. Right lower lobe pulmonary nodule, indeterminate in nature. Chest CT is recommended for complete evaluation of the lungs. PET scan or biopsy may be needed 2. Left renal peripelvic cysts 3. No definite sign of hemorrhage in the abdomen and pelvis 4. Constipation 5. L1 compression fracture, likely old 01/31/25 20:23 CT angio head w con Stat CT angio neck with con Stat CT head/brain wo con Stat Head CT IMPRESSION: No acute intracranial pathology noted. Remote infarction with encephalomalacia in the right MCA territory. Chronic involutional and ischemic changes of the brain. Head/Neck CTA IMPRESSION: No large vessel occlusion, significant stenosis or aneurysm demonstrated. A 1.7 x 1.1 cm suspicious solid pulmonary nodule seen in the left upper lobe. Correlation with chest CT, PET/CT scan/biopsy recommended. Nonspecific 1.4 x 1.2 cm complex left thyroid nodule. Sonographic correlation is advised. Calcified atheromatous plaques of the bilateral carotid bulbs and proximal internal carotid arteries with up to 50% luminal narrowing. 01/31/25 21:50 CT head/brain wo con Stat IMPRESSION: Demonstrates in the interim a 1.5 x 0.7 cm extra-axial hyperdensity/focal subdural hemorrhage with likely associated regional subarachnoid hemorrhage. Otherwise findings are unchanged since resent today's CT head exam. 02/01/25 02:02 CT head/brain wo con Stat IMPRESSION: 1. 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 2. Chronic microvascular ischemic changes. 3. Age-matched involutional brain changes. 4. Early changes of a stroke may not be detected on a CT scan. If strong clinical suspicion of stroke, then suggest MRI with diffusion-weighted imaging. 02/01/25 13:25 MR brain wo/w con Urgent IMPRESSION: 1. No definite area of restricted diffusion to suggest acute infarctiona. 2. 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 (stable) 3. 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 (not seen in CT head without contrast) Follow-up is advised. 4. Senile involutionary changes and moderate microvascular angiopathic changes. (stable) Pending Results Patient Have Any Pending Studies at Discharge: Yes (Repeat urine culture results.) Discharge Instructions Given to Patient (Per Discharging Provider) Ms. Blankenship was admitted to [facility] due to worsening generalized weakness and a near syncopal episode. She was found to have worsening anemia during her hospital stay which likely attributed to her near syncopal event which occurred prior to admission. * It is suspected that her worsening anemia was due to the prior blood loss she sustained from a small wound on the posterior aspect of her left upper extremity while of warfarin (blood thinner). Because warfarin reduces the blood's ability to clot, it also increases the risk of bleeding. * Ms. Blankenship required 1 blood transfusion during her hospital stay. Her hemoglobin level, which is a protein in red blood cells that carries oxygen, is 9.1 on the day of discharge. She will need repeat labs, including complete blood count (CBC), in about 1 week. This can be completed by her primary care provider (PCP) at her hospital discharge follow-up appointment which will be arranged through [facility]. Her warfarin and aspirin were restarted on 02/03/2025. * Continue her home warfarin dosing as prescribed unless otherwise directed by the [facility] (primarily manages her warfarin dosing as an outpatient). Repeat PT/INR will be ordered through [facility] to be completed in the next 2 days. Ms. Blankenship experienced an unresponsive episode during her hospitalization on the night of 01/31/2025. She underwent extensive imaging including repeat head CT imaging, head/neck CT angiography (looks at the arteries in the head/neck) and brain MRI. * Ms. Blankenship did NOT have a stroke or brain bleed. We suspect she may have had an unwitnessed seizure and then became unresponsive in what we call a postictal state. The postictal state is a temporary altered state of consciousness after a seizure. This is very common. She needs to have an electroencephalogram (EEG) done. This will be completed in the outpatient setting and can be ordered by her PCP. * An EEG is a test that measures the electrical activity of the brain. It uses small, non-invasive electrodes placed on the scalp to detect these brain signals, which then are displayed as brainwaves on a computer. These brainwaves can be useful for seeing if a patient has experienced a seizure. * Her Keppra dose was determined to be TOO LOW when we checked her Keppra level. Her Keppra dose has been INCREASED to 1000mg TWICE daily. Will need repeat Keppra level testing in 4-6 weeks which will be coordinated by her PCP. Her brain MRI revealed the following incidental finding: a right posterior parietal extra-axial dural based enhancing lesion likely a small meningioma. * A meningioma is a tumor that forms in the meninges, which are three layers of tissue that cover and protect the brain and spinal cord. Meningiomas originate from arachnoid cells in particular, which are cells within the thin, spiderweb-like membrane that covers the brain and spinal cord. This is one of three layers that make up the meninges. * Most meningiomas are NOT cancerous (benign). Neurology recommended that Ms. Blankenship sees a neurosurgeon to further discuss this. Again, this will be relayed to her PCP and an outpatient appointment with [facility] neurosurgery will be arranged. Neurology also recommended that she has a repeat brain MRI with and without contrast in 1 MONTH to monitor for any changes. Again, this can be arranged by her PCP. She was also incidentally found to have 2 nodules in her RIGHT lung and 1 nodule in her LEFT lung. * Lung nodules often are discovered incidentally during imaging for other health conditions, such as a chest X-ray or CT scan. Most lung nodules are NOT cancer, and no additional treatment is necessary. However, some nodules are cancerous. All lung nodules should be carefully evaluated because lung cancer is the No. 1 cause of cancer deaths in [place] adults. * It is recommended that Ms. Blankenship has an outpatient chest CT in 1 MONTH to monitor these lung nodules. This can be arranged by her PCP. Ms. Blankenship was also found to have a nonspecific 1.4 x 1.2cm complex left thyroid nodule on her neck CTA. * Thyroid nodules are solid or fluid-filled lumps that form within your thyroid, a small gland located at the base of your neck, just above your breastbone. Nodules in the thyroid gland are a common entity and are detected in approximately 5% to 7% of the adult population by physical examination alone. Although the vast majority of thyroid nodules are benign (noncancerous), a small proportion of thyroid nodules do contain thyroid cancer. * It is recommended that Melina has a thyroid ultrasound completed within the next 1-2 months to further evaluate this nodule. Again, this can be arranged by her PCP. MEDICATION CHANGES: 1. Keppra dose increased to 1000mg by mouth TWICE daily. Will have repeat Keppra level testing ordered by her PCP as mentioned above. RECOMMENDATIONS FOR FOLLOW-UP As per above. PCP follow-up appointment to be arranged through [facility]. PCP will then coordinate the above imaging studies and arrange her specialist appointments. It has been a pleasure taking care of Ms. Blankenship. If there are any questions regarding Ms. Blankenship's recent hospitalization, please contact [facility] and request a [facility] Hospitalist @ [phone]. Total Time Total Time Spent Total Time Spent (In Minutes): 80 Supervising Physician Co-Signing Physician Notes I have reviewed the advanced practitioner's documentation, and I agree with, and take responsibility for the plan of care I spent a total of 20 minutes coordinating, documenting, and providing care for this patient excluding time spent in the performance of separately billed services. All of the aforementioned completed while collaborating with the assigned advanced practitioner for a full treatment plan
[2025-02-05] MEDS: FAMOTIDINE 40 MG TABLET PO SCH (09:21)
== END 2025-02-05 13:06 | DRG 813 ==
LOC: ED 20:29 → SUATTDRO 01-30 01:12 → 2W 01-30 01:12 → 4W 02-01 01:30 → 2E 02-02 15:46

== ENCOUNTER 2025-04-30 06:48 | Observation (INO) ==
[2025-04-30 07:41] LABS: Hematocrit (blood only) 44.6 % (37.0-47.0); Hemoglobin 14.4 g/dl (12.0-16.0); Immature Granulocytes # (auto) 0.01 K/uL (0.01-0.20); Immature Granulocytes % (auto) 0.2 %; Mean Corpuscular Hemoglobin 28.0 pg (25.0-34.0); Mean Corpuscular Volume 86.6 fL (80.0-100.0); Platelet Count 189 K/uL (130-400); RDW Standard Deviation 43.4 fL (36.4-46.3); Red Blood Count 5.15 M/uL (4.20-5.40); White Blood Count 6.16 K/ul (4.8-10.8)
[2025-04-30 08:07] LABS: Appearance Urine Clear (Clear); Glucose Urine UA Negative (Negative)
[2025-04-30 08:20] LABS: Thyroid Stimulating Hormone 3.262 uIu/ml (0.300-4.500)
[2025-04-30 08:28] LABS: Alanine Aminotransferase 40 U/L (7-52); Alkaline Phosphatase 92 U/L (34-104); Anion Gap 7 (3-11); Bilirubin,Total 0.3 mg/dl (0.2-1.0); Calcium 9.3 mg/dl (8.6-10.3); Carbon Dioxide 27 mmol/L (21-32); Chloride 103 mmol/L (98-107); Magnesium 2.3 mg/dl (1.7-2.4); Sodium 137 mmol/L (136-145)
[2025-04-30 08:31] LABS: Albumin Globulin Ratio 1.4 (0.9-2); Blood Urea Nitrogen 13 mg/dl (6-23); Creatinine Clr Calc Pharmacy 67.3 ml/min; Globulin 2.8 gm/dl (2.5-4.0); Glucose 92 mg/dl (70-99(Fasting)); Total Protein 6.6 gm/dl (6.0-8.3)
--- NOTE | 2025-04-30 08:37 | XRay Report ---
EXAM: XR chest 1V portable CLINICAL HISTORY: Weakness. TECHNIQUE: An X-ray image of the chest is obtained in PA projection. COMPARISON: Prior chest x-ray dated 01/29/2025 was reviewed. FINDINGS: Technically rotated patient. Pulmonary Parenchyma: Redemonstration of small pulmonary nodules in right upper and lower zone, measures 11 x 9 versus 11 x 10 mm, in upper zone. Lungs are clear bilaterally. No evidence of consolidation, collapse, or focal opacities. No evidence of pleural effusion or pleural thickening. Heart and Mediastinum: Cardiothoracic ratio cannot be commented upon due to PA projection. Atherosclerotic calcification is noted in the aortic arch. Senile tracheobronchial calcifications noted. No mediastinal widening or masses. No hilar enlargement. Bony Thorax: degenerative changes noted in the visualized bones. Bony thorax appears intact without fractures or deformities. IMPRESSION: 1. Two right-sided pulmonary nodules redemonstrated, grossly unchanged in size, Clinical correlation and if needed Follow-up with CT study advised. 2. No gross effusion, collapse or consolidation, no acute abnormalities. 3. No interval changes. Electronically signed by Arnoldo Ibarra 04-30-2025 08:37 AM
[2025-04-30 09:41] LABS: Potassium 4.0 mmol/L (3.5-5.1)
[2025-04-30] MEDS: LACTATED RINGER'S 1,000 ML IV SCH (13:15)
--- NOTE | 2025-04-30 13:36 | Emergency Department Note ---
Impression & Plan Weakness, Adult failure to thrive ED Provider Note NAME: BENITO GERMAN AGE: 89 SEX: F : 1935 ARRIVES VIA: Ambulance INFORMANT: Patient, ED PROVIDER(S): Denise Toledo MD CHIEF COMPLAINT: Weakness HPI: This is a 89-year-old female presenting for weakness. Patient is with her daughters who states that she has had increasing weakness with past 1 week. Sleeping more often, 18+ hours a day for otherwise having difficulty getting up and doing her daily activities including walking. She is so weak that she is unable to do these activities. She has no specific chest pain, shortness of breath, congestion, nausea, vomiting, diarrhea. She was recently on an antibiotic for UTI. She just finished her course recently. ROS: See above HPI for pertinent positives & negatives. A total of 10 systems reviewed and were otherwise negative. PAST MEDICAL HISTORY: See Below PAST SURGICAL HISTORY: See Below FAMILY HISTORY: See Below SOCIAL HISTORY: See Below HOME MEDICATIONS: See Below ALLERGIES: See Below VITALS: See Below PHYSICAL EXAMINATION: General: resting comfortably in no acute distress Head: Normocephalic and atraumatic Eyes: Normal inspection, extraocular muscles intact Ear, nose, throat: Normal external exam Neck: Normal range of motion Respiratory: lungs clear to auscultation bilaterally Cardiovascular: Regular rate/rhythm, no murmur GI: soft, nontender, no guarding or rebound Extremities: nontender, moves all extremities Neuro: The patient awake and alert, appropriately conversive, no focal deficits, symmetric faces Skin: Warm, dry, and intact MEDICAL DECISION MAKING: This is an 89-year-old female present for weakness. Will do screening blood work, urinalysis, chest x-ray. - Bloodwork is reviewed showing no significant leukocytosis, anemia, electrolyte or creatinine abnormality. Troponin negative - ECG independently interpreted by me with normal sinus rhythm, rate of 67, first-degree AV block, normal QRS, normal QTc, no ST segment elevations consistent with STEMI criteria - Urinalysis negative for UTI - Chest Xray independently interpreted by me showing no pneumothorax, focal opacity, or pleural effusions. -Patient reevaluated, still having weakness. Family states that she does live alone and they are worried about her being home by herself. - Patient admitted for weakness, failure to thrive. Family updated at bedside. - Care discussed with Dr. Javier Differential diagnosis: UTI, sepsis, anemia, dehydration, failure to thrive Independent History obtained from: 2 daughters at bedside Diagnostics interpreted by me: ECG: See above Cardiac Monitoring: An order was placed for continuous cardiac monitoring. The monitor shows a rate of 59 with sinus rhythm. Past Med/Surg History Problem List (Updated 04/30/25 @ 15:02 by Denise Toledo MD) Adult failure to thrive (Acute) Weakness (Acute) Orthostatic hypotension Unresponsive episode AMS (altered mental status) Abnormal CT of brain Delirium Elevated troponin Pulmonary nodules Abnormal CT of the abdomen History of seizure disorder Occasional tremors Hypotension Near syncope Acute anemia Anemia (Acute) Generalized weakness (Acute) Hx of colonic polyp Medical History Thyroid nodule Hx of basal cell carcinoma History of anesthesia reaction hypersensitive to all narcotics and anesthesia, difficulty waking, also had colonoscopy in the past where she was aware & in pain during procedure Hypercholesteremia Chronic back pain hx fractured spine age 32's Scoliosis History of stroke x 7, started in 2005, No Neuro at present, no deficits, daily coumadin Seizure disorder (~2018) only x 1, thought stroke, but ruled out, no longer sees Neuro, on Keppra GERD (gastroesophageal reflux disease) Blind right eye Macular degeneration Surgical History Hx of basal cell carcinoma excision Hx of melanoma excision Hx of colonoscopy with polypectomy History of surgery on wrist right Hx of hysterectomy Hx of total knee replacement right Social History Smoking Status: Former smoker Tobacco Type: Cigarettes Cigarettes Per Day: 1 PPD; Second Hand Exposure: No; Do You Dip or Chew Tobacco: No; Hx Alcohol Use: No Hx Substance Use: No Preferred Language: Maltese Communication Ability: Effective 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 Required: No Beliefs That Will Affect Care: None Current Living Situation: Alone Feels Safe at Home: Yes Assistive Devices: Cane and Walker Allergies Allergies Allergy/AdvReac Type Severity Reaction Status Date / Time azithromycin Allergy Mild Unknown Verified 01/30/25 00:47 [From Zithromax Z-Moe] meperidine [From Demerol] Allergy Mild Unknown Verified 01/30/25 00:47 Penicillins Allergy Mild Unknown Verified 01/30/25 00:47 Sulfa (Sulfonamide Allergy Mild Unknown Verified 01/30/25 00:47 Antibiotics) Home Meds Home Medications Medication Instructions Recorded Confirmed aspirin 81 mg capsule 81 mg PO QAM 01/29/24 04/30/25 calcium carbonate 500 mg PO QAM 01/29/24 04/30/25 [id number] tablet 1 tab PO QAM 01/29/24 04/30/25 pravastatin 20 mg tablet 20 mg PO HS 01/29/24 04/30/25 vit C 250 mg-vit E 90 mg-zinc 40 1 tab PO BID 01/29/24 04/30/25 mg-copper 1 im-udiloe-uraupa capsule (PreserVision AREDS-2) vitamin B12 0.5 mg-folic acid 1 mg 1 tab PO WK 01/29/24 04/30/25 tablet warfarin 6 mg tablet 0 mg PO [id number] 01/29/24 04/30/25 cholecalciferol (vitamin D3) 10 400 unit PO DAILY 01/30/25 04/30/25 mcg (400 unit) tablet docusate sodium 100 mg capsule 100 mg PO Q2D 01/30/25 04/30/25 famotidine 40 mg tablet 40 mg PO UD 01/30/25 04/30/25 warfarin 6 mg tablet 0 mg PO WK 01/30/25 04/30/25 duloxetine 20 mg capsule,delayed 20 mg PO DAILY 04/30/25 04/30/25 release duloxetine 30 mg capsule,delayed 30 mg PO DAILY 04/30/25 04/30/25 release ferrous sulfate 325 mg (65 mg 325 mg PO UD 04/30/25 04/30/25 iron) tablet,delayed release levetiracetam 500 mg tablet 1,000 mg PO UD 04/30/25 04/30/25 (Keppra) memantine 5 mg tablet 5 mg PO BID 04/30/25 04/30/25 nitrofurantoin 100 mg PO BID 04/30/25 04/30/25 monohydrate/macrocrystals 100 mg capsule Previous Rx's Medication Instructions Recorded meclizine 12.5 mg tablet 12.5 mg PO Q8H PRN dizziness #30 02/05/25 tabs Results & Data (ED) Vital Signs Vital Signs - 24 hr 04/30/25 06:56 04/30/25 06:57 04/30/25 09:07 Temperature 36.5 C Temperature Source Oral Pulse Rate 62 62 Pulse Rate [Finger] 63 Respiratory Rate 24 18 Blood Pressure 178/95 H Blood Pressure [Right Arm] 149/83 H Blood Pressure Mean 122 Blood Pressure Mean [Right Arm] 105 Pulse Oximetry 99 95 Oxygen Delivery Method Room Air Room Air Sepsis Recent Fever Within 48 Hours Yes Sepsis New/Unexplained Change in Mental Status No Sepsis Action Taken by Nursing No Action Required 04/30/25 10:07 04/30/25 10:30 04/30/25 12:00 Temperature Temperature Source Pulse Rate 61 Pulse Rate [Finger] 61 59 L Respiratory Rate 18 18 Blood Pressure Blood Pressure [Right Arm] 141/75 H 138/90 Blood Pressure Mean Blood Pressure Mean [Right Arm] 97 106 Pulse Oximetry 95 95 Oxygen Delivery Method Room Air Room Air Sepsis Recent Fever Within 48 Hours Sepsis New/Unexplained Change in Mental Status Sepsis Action Taken by Nursing 04/30/25 14:00 Temperature Temperature Source Pulse Rate Pulse Rate [Finger] 67 Respiratory Rate 18 Blood Pressure Blood Pressure [Right Arm] 161/77 H Blood Pressure Mean Blood Pressure Mean [Right Arm] 105 Pulse Oximetry 95 Oxygen Delivery Method Room Air Sepsis Recent Fever Within 48 Hours Sepsis New/Unexplained Change in Mental Status Sepsis Action Taken by Nursing Laboratory Data 04/30/25 06:58 04/30/25 09:09 Lab Results 04/30/25 04/30/25 04/30/25 Range/Units 06:58 07:54 09:09 WBC 6.16 (4.8-10.8) K/ul RBC 5.15 (4.20-5.40) M/uL Hgb 14.4 (12.0-16.0) g/dl Hct 44.6 (37.0-47.0) % MCV 86.6 (80.0-100.0) fL MCH 28.0 (25.0-34.0) pg MCHC 32.3 (32.0-36.0) g/dL RDW Std Deviation 43.4 (36.4-46.3) fL RDW Coeff of Roge 13.6 (11.5-14.5) % Plt Count 189 (130-400) K/uL MPV 10.7 (9.4-12.4) fL Immature Gran % (Auto) 0.2 % Neut % (Auto) 41.2 % Lymph % (Auto) 46.4 % [place] % (Auto) 10.6 % Eos % (Auto) 1.0 % Baso % (Auto) 0.6 % Neut # (Auto) 2.54 (1.40-6.50) K/uL Lymph # (Auto) 2.86 (1.20-3.40) K/uL Taney # (Auto) 0.65 H (0.11-0.59) K/uL Eos # (Auto) 0.06 (0.00-0.50) K/uL Baso # (Auto) 0.04 (0.00-0.20) K/uL Immature Gran # (Auto) 0.01 (0.01-0.20) K/uL Sodium 137 (136-145) mmol/L Potassium TNP 4.0 Chloride 103 (98-107) mmol/L Carbon Dioxide 27 (21-32) mmol/L Anion Gap 7 (3-11) BUN 13 (6-23) mg/dl Creatinine 0.53 L (0.6-1.2) mg/dl Est Cr Clr Drug Dosing 67.3 ml/min eGFR 89.45 BUN/Creatinine Ratio 24.5 H (10-20) Glucose 92 (70-99(Fasting)) mg/dl Calcium 9.3 (8.6-10.3) mg/dl Magnesium 2.3 (1.7-2.4) mg/dl Total Bilirubin 0.3 (0.2-1.0) mg/dl AST TNP 35 ALT 40 (7-52) U/L Alkaline Phosphatase 92 (34-104) U/L Troponin I High Sens 13.2 (0-14) pg/ml Total Protein 6.6 (6.0-8.3) gm/dl Albumin 3.8 (3.4-5.0) gm/dl Globulin 2.8 (2.5-4.0) gm/dl Albumin/Globulin Ratio 1.4 (0.9-2) Vitamin B12 881 (180-914) pg/ml TSH 3.262 (0.300-4.500) uIu/ml Urine Color Yellow Urine Appearance Clear (Clear) Urine pH 8.0 H (4.5-7.5) Ur Specific [place] 1.011 (1.000-1.030) Urine Protein Negative (Negative) Urine Glucose (UA) Negative (Negative) Urine Ketones Negative (Negative) Urine Blood Negative (Negative) Urine Nitrite Negative (Negative) Urine Bilirubin Negative (Negative) Urine Urobilinogen Negative (Negative) Ur Leukocyte Esterase Negative (Negative) Urine Comment Administered Medications Discontinued Medications Folic Acid (Folic Acid 1 Mg Tab) 1 mg PO NOW STA Stop: 04/30/25 13:07 Last Admin: 04/30/25 13:57 Dose: 1 mg Documented By: ARIE Lactated Ringer's (Lr) 500 mls @ 999 mls/hr IV .Q31M ONE Stop: 04/30/25 13:32 Last Infusion: 04/30/25 14:33 Dose: Infused Documented By: Admin: 04/30/25 13:58 Dose: 999 mls/hr Documented By: ARIE Thiamine HCl (Thiamine Hcl 100 Mg Tab) 100 mg PO NOW STA Stop: 04/30/25 13:07 Last Admin: 04/30/25 13:58 Dose: 100 mg Documented By: ARIE Imaging Data Radiologist's Impression: Chest X-Ray 04/30/25 07:24 EXAM: XR chest 1V portable CLINICAL HISTORY: Weakness. TECHNIQUE: An X-ray image of the chest is obtained in PA projection. COMPARISON: Prior chest x-ray dated 01/29/2025 was reviewed. FINDINGS: Technically rotated patient. Pulmonary Parenchyma: Redemonstration of small pulmonary nodules in right upper and lower zone, measures 11 x 9 versus 11 x 10 mm, in upper zone. Lungs are clear bilaterally. No evidence of consolidation, collapse, or focal opacities. No evidence of pleural effusion or pleural thickening. Heart and Mediastinum: Cardiothoracic ratio cannot be commented upon due to PA projection. Atherosclerotic calcification is noted in the aortic arch. Senile tracheobronchial calcifications noted. No mediastinal widening or masses. No hilar enlargement. Bony Thorax: degenerative changes noted in the visualized bones. Bony thorax appears intact without fractures or deformities. IMPRESSION: 1. Two right-sided pulmonary nodules redemonstrated, grossly unchanged in size, Clinical correlation and if needed Follow-up with CT study advised. 2. No gross effusion, collapse or consolidation, no acute abnormalities. 3. No interval changes. Electronically signed by Arnoldo Ibarra 04-30-2025 08:37 AM Discharge Plan Visit Data Chief Complaint: Weakness Stated Complaint: WEAKNESS, DIZZY ED Provider: Denise Toledo Discharge Problem: Weakness, Adult failure to thrive Patient Disposition: Admitted As Inpatient Condition: Fair Discharge Instructions Interventions: ED Discharge Assessment Last Done: 04/30/25 14:57 Forms Stand Alone Forms: My [facility] SpeakPhone Prescriptions Prescriptions: No Action warfarin 6 mg Tablet 0 mg PO [id number] Patient Comments: 04/30- last filled 11/19/24 90 day supply #90 Rx Instructions: TAKE 6MG EVERY MONDAY/MONDAY/MONDAY/MONDAY/MONDAY/MONDAY. calcium carbonate 500 mg calcium (1,250 mg) Tablet 500 mg PO QAM Patient Comments: 04/30- otc unable to verify pravastatin 20 mg Tablet 20 mg PO HS [id number] Tablet 1 tab PO QAM Patient Comments: 04/30- otc unable to verify vitamin [id number] acid 0.5-1 mg Tablet 1 tab PO WK Patient Comments: 04/30- otc unable to verify PreserVision AREDS-2 250-90-40-1 mg Capsule 1 tab PO BID Patient Comments: 04/30- otc unable to verify aspirin 81 mg Capsule 81 mg PO QAM Patient Comments: 04/30- otc unable to verify famotidine 40 mg Tablet 40 mg PO UD Patient Comments: 04/30-last filled 02/17/25 30 day supply #30. original:40 mg po daily cholecalciferol (vitamin D3) 10 mcg (400 unit) Tablet 400 unit PO DAILY Patient Comments: 04/30- otc unable to verify docusate sodium 100 mg Capsule 100 mg PO Q2D Patient Comments: 04/30- otc unable to verify Rx Instructions: TAKE THIS MED @HS warfarin 6 mg Tablet 0 mg PO WK Patient Comments: 04/30- last filled 11/19/24 90 day supply #90 Rx Instructions: TAKE 1/2 TABLET ( 3MG ) EVERY MONDAY. meclizine 12.5 mg Tablet 12.5 mg PO Q8H PRN (Reason: dizziness) Qty: 30 0RF Patient Comments: 04/30- otc/ no fill history unable to verify memantine 5 mg tablet 5 mg PO BID nitrofurantoin monohyd/m-cryst 100 mg capsule 100 mg PO BID Patient Comments: 04/30- Filled 04/23 7 day supply #14 duloxetine 20 mg capsule,delayed release(DR/EC) 20 mg PO DAILY Rx Instructions: take with 30 mg to equal 50mg dose duloxetine 30 mg capsule,delayed release(DR/EC) 30 mg PO DAILY Rx Instructions: take with 20 mg to equal 50mg dose levetiracetam [Keppra] 500 mg tablet 1,000 mg PO UD Patient Comments: 04/30-last filled 02/18/25 30 day supply #60 1000mg po bid ferrous sulfate 325 mg (65 mg iron) tablet,delayed release (DR/EC) 325 mg PO UD Patient Comments: 04/30- last filled 02/17/25 30 day supply #60 1 tab po bid Referrals Referrals: Carol Encarnacion PA-C [Primary Care Provider] -
--- NOTE | 2025-04-30 13:45 | History & Physical Report ---
Date of Service April 30, 2025 Assessment & Plan (1) Generalized weakness: (2) Delirium: (3) History of seizure disorder: (4) Orthostatic hypotension: (5) History of stroke: Plan 89 yo female with pmhx epilepsy (simple partial seizures), hx of TIA, HTN, HLD, lumbar spinal stenosis, osteoarthritis who presents for weakness from home 2/2 orthostatic hypotension, ambulatory dysfunction. #Generalized Weakness #Orthostatic Hypotension -positive orthostatics per EMS, patient has symptoms consistent with orthostatic hypotension (dizziness with standing, using bathroom, etc) -lab workup unremarkable -suspect MSK decompensation in setting of recent hospitalizations, age, difficulty with dizziness -other etiologies to be considered include stroke (no localizing symptoms, no nystagmus), seizures (unlikely given retained consciousness), arrythmia (p ossible but symptoms not consistent) Plan: -start LR maintenance plus bolus -check echo -if symptoms do not improve with fixing orthostatic hypotension, may require MR brain (outside of tpa window, on warfarin, NIHSS of 0) -PT/OT ordered -admit to [facility] for observation -hold meclizine for now, can trial tomorrow if still having dizziness with #Hypoactive Delirium -patient slightly confused on exam -TSH WNL, UA unremarkable -likely 2/2 dehydration, hospital Plan: -delirium precautions -limit anticholinergic medications -hold memantine for now, restart after improvement in mentation -check B12/vitamin D, start folic acid/thiamine supplementation -coninue duloxetine #Epilepsy -continue keppra #HTN #HLD -continue aspirin, statin I spent a total of 65 minutes in direct patient care, including [id number] time with the patient and/or family, reviewing medical records, ordering and reviewing diagnostic tests, and coordinating care with other healthcare providers. This time includes: history taking, physical examination, medical decision making, counseling, ECG interpretation, imaging interpretation, lab interpretation, orders, and education, excluding time spent in the performance of separately billed services. History of Present Illness Chief Complaint: -weakness Primary Care Provider: Carol Encarnacion PA-C 89 yo female with pmhx epilepsy (simple partial seizures), hx of TIA, HTN, HLD, lumbar spinal stenosis, osteoarthritis who presents for weakness from home. Last admission on 01/2025 for syncope, did not have stroke at that time. In the ED, admitted to medicine for weakness. Patient seen and examined at bedside. Patient doing ok today. States "I feel like the world is coming upside down". When asked to describe this, she does not say she is lightheaded or dizzy. She states she feels like she is floating. Feels weak and dizzy, daughters feels she is well below her baseline. Patient lives alone, daughters live close by and help out frequently. Patient states she gets dizzy when she uses the bathroom, goes from sitting to standing. Denies chest pain, SOB, nausea, vomiting, other associated symptoms. No drug use, no alcohol use, no tobacco use. Allergies Allergy/AdvReac Type Severity Reaction Status Date / Time azithromycin Allergy Mild Unknown Verified 01/30/25 00:47 [From Zithromax Z-Moe] meperidine [From Demerol] Allergy Mild Unknown Verified 01/30/25 00:47 Penicillins Allergy Mild Unknown Verified 01/30/25 00:47 Sulfa (Sulfonamide Allergy Mild Unknown Verified 01/30/25 00:47 Antibiotics) Home Medications Medication Instructions Recorded Confirmed Type aspirin 81 mg capsule 81 mg PO QAM 01/29/24 04/30/25 History calcium carbonate 500 mg PO QAM 01/29/24 04/30/25 History [id number]-trreezny-ropzta tablet 1 tab PO QAM 01/29/24 04/30/25 History pravastatin 20 mg tablet 20 mg PO HS 01/29/24 04/30/25 History vit C 250 mg-vit E 90 mg-zinc 40 1 tab PO BID 01/29/24 04/30/25 History mg-copper 1 [id number]-abypic-edcdhh capsule (PreserVision AREDS-2) vitamin B12 0.5 mg-folic acid 1 mg 1 tab PO WK 01/29/24 04/30/25 History tablet warfarin 6 mg tablet 0 mg PO [id number] 01/29/24 04/30/25 History cholecalciferol (vitamin D3) 10 400 unit PO DAILY 01/30/25 04/30/25 History mcg (400 unit) tablet docusate sodium 100 mg capsule 100 mg PO Q2D 01/30/25 04/30/25 History famotidine 40 mg tablet 40 mg PO UD 01/30/25 04/30/25 History warfarin 6 mg tablet 0 mg PO WK 01/30/25 04/30/25 History meclizine 12.5 mg tablet 12.5 mg PO Q8H PRN dizziness #30 02/05/25 04/30/25 Rx tabs duloxetine 20 mg capsule,delayed 20 mg PO DAILY 04/30/25 04/30/25 History release duloxetine 30 mg capsule,delayed 30 mg PO DAILY 04/30/25 04/30/25 History release ferrous sulfate 325 mg (65 mg 325 mg PO UD 04/30/25 04/30/25 History iron) tablet,delayed release levetiracetam 500 mg tablet 1,000 mg PO UD 04/30/25 04/30/25 History (Keppra) memantine 5 mg tablet 5 mg PO BID 04/30/25 04/30/25 History nitrofurantoin 100 mg PO BID 04/30/25 04/30/25 History monohydrate/macrocrystals 100 mg capsule Past Med/Surg History Problem List Orthostatic hypotension Unresponsive episode AMS (altered mental status) Abnormal CT of brain Delirium Elevated troponin Pulmonary nodules Abnormal CT of the abdomen History of seizure disorder Occasional tremors Hypotension Near syncope Acute anemia Anemia (Acute) Generalized weakness (Acute) Hx of colonic polyp Medical History Thyroid nodule Hx of basal cell carcinoma History of anesthesia reaction hypersensitive to all narcotics and anesthesia, difficulty waking, also had colonoscopy in the past where she was aware & in pain during procedure Hypercholesteremia Chronic back pain hx fractured spine age 32's Scoliosis History of stroke x 7, started in 2005, No Neuro at present, no deficits, daily coumadin Seizure disorder (~2018) only x 1, thought stroke, but ruled out, no longer sees Neuro, on Keppra GERD (gastroesophageal reflux disease) Blind right eye Macular degeneration Surgical History Hx of basal cell carcinoma excision Hx of melanoma excision Hx of colonoscopy with polypectomy History of surgery on wrist right Hx of hysterectomy Hx of total knee replacement right Social History Smoking Status: Former smoker Tobacco Type: Cigarettes Cigarettes Per Day: 1 PPD; Second Hand Exposure: No; Do You Dip or Chew Tobacco: No; Hx Alcohol Use: No Hx Substance Use: No Preferred Language: Sami Communication Ability: Effective [employer] Required: No Beliefs That Will Affect Care: None Current Living Situation: Alone Feels Safe at Home: Yes Assistive Devices: Cane and Walker Review of Systems Review of Systems: -negative unless listed above Physical Exam Physical Exam: Gen: A&O 3 NAD, slight confusion HEENT: NCAT, EOMI, not icteric. External ears normal. No rhinorrhea. Moist mucous membranes. Neck: Supple, full range of motion, no observable masses, No meningeal sign. Lungs: No Respiratory distress. CV: RRR, no edema. Abdomen: Soft, nondistended, No rebound tenderness. MSK: No joint swelling, no redness. Skin: No rashes, petechiae, lesions. Normal color per patient. Neuro: Normal Gait, Grossly intact. No nystagmus, no induced dizziness noted with head movement, slightly confused. NIHSS of 0 Psych: Appropriate for situation. Results & Data Results & Data Vital Signs (Past 12 Hours) Vital Signs Temp Pulse Pulse Resp BP BP Pulse Ox 04/30/25 12:00 59 L 18 138/90 95 04/30/25 10:30 61 18 141/75 H 95 04/30/25 10:07 61 04/30/25 09:07 63 18 149/83 H 95 04/30/25 06:57 62 04/30/25 06:56 36.5 C 62 24 178/95 H 99 O2 Del Method 04/30/25 12:00 Room Air 04/30/25 10:30 Room Air 04/30/25 10:07 04/30/25 09:07 Room Air 04/30/25 06:57 04/30/25 06:56 Room Air Laboratory Results -personally reviewed, no leukocytosis, Hgb at baseline Medications Administered Laboratory Results WBC 6.16 K/ul (4.8-10.8) 04/30/25 06:58 RBC 5.15 M/uL (4.20-5.40) 04/30/25 06:58 Hgb 14.4 g/dl (12.0-16.0) 04/30/25 06:58 Hct 44.6 % (37.0-47.0) 04/30/25 06:58 MCV 86.6 fL (80.0-100.0) 04/30/25 06:58 MCH 28.0 pg (25.0-34.0) 04/30/25 06:58 MCHC 32.3 g/dL (32.0-36.0) 04/30/25 06:58 RDW Std Deviation 43.4 fL (36.4-46.3) 04/30/25 06:58 RDW Coeff of Roge 13.6 % (11.5-14.5) 04/30/25 06:58 Plt Count 189 K/uL (130-400) 04/30/25 06:58 MPV 10.7 fL (9.4-12.4) 04/30/25 06:58 Immature Gran % (Auto) 0.2 % 04/30/25 06:58 Neut % (Auto) 41.2 % 04/30/25 06:58 Lymph % (Auto) 46.4 % 04/30/25 06:58 [place] % (Auto) 10.6 % 04/30/25 06:58 Eos % (Auto) 1.0 % 04/30/25 06:58 Baso % (Auto) 0.6 % 04/30/25 06:58 Neut # (Auto) 2.54 K/uL (1.40-6.50) 04/30/25 06:58 Lymph # (Auto) 2.86 K/uL (1.20-3.40) 04/30/25 06:58 [place] # (Auto) 0.65 K/uL (0.11-0.59) H 04/30/25 06:58 Eos # (Auto) 0.06 K/uL (0.00-0.50) 04/30/25 06:58 Baso # (Auto) 0.04 K/uL (0.00-0.20) 04/30/25 06:58 Immature Gran # (Auto) 0.01 K/uL (0.01-0.20) 04/30/25 06:58 Sodium 137 mmol/L (136-145) 04/30/25 06:58 Potassium 4.0 mmol/L (3.5-5.1) 04/30/25 09:09 Chloride 103 mmol/L (98-107) 04/30/25 06:58 Carbon Dioxide 27 mmol/L (21-32) 04/30/25 06:58 Anion Gap 7 (3-11) 04/30/25 06:58 BUN 13 mg/dl (6-23) 04/30/25 06:58 Creatinine 0.53 mg/dl (0.6-1.2) L 04/30/25 06:58 Est Cr Clr Drug Dosing 67.3 ml/min 04/30/25 06:58 eGFR 89.45 04/30/25 06:58 BUN/Creatinine Ratio 24.5 (10-20) H 04/30/25 06:58 Glucose 92 mg/dl (70-99(Fasting)) 04/30/25 06:58 Calcium 9.3 mg/dl (8.6-10.3) 04/30/25 06:58 Magnesium 2.3 mg/dl (1.7-2.4) 04/30/25 06:58 Total Bilirubin 0.3 mg/dl (0.2-1.0) 04/30/25 06:58 AST 35 U/L (13-39) 04/30/25 09:09 ALT 40 U/L (7-52) 04/30/25 06:58 Alkaline Phosphatase 92 U/L (34-104) 04/30/25 06:58 Troponin I High Sens 13.2 pg/ml (0-14) 04/30/25 06:58 Total Protein 6.6 gm/dl (6.0-8.3) 04/30/25 06:58 Albumin 3.8 gm/dl (3.4-5.0) 04/30/25 06:58 Globulin 2.8 gm/dl (2.5-4.0) 04/30/25 06:58 Albumin/Globulin Ratio 1.4 (0.9-2) 04/30/25 06:58 TSH 3.262 uIu/ml (0.300-4.500) 04/30/25 06:58 Urine Color Yellow 04/30/25 07:54 Urine Appearance Clear (Clear) 04/30/25 07:54 Urine pH 8.0 (4.5-7.5) H 04/30/25 07:54 Ur Specific [place] 1.011 (1.000-1.030) 04/30/25 07:54 Urine Protein Negative (Negative) 04/30/25 07:54 Urine Glucose (UA) Negative (Negative) 04/30/25 07:54 Urine Ketones Negative (Negative) 04/30/25 07:54 Urine Blood Negative (Negative) 04/30/25 07:54 Urine Nitrite Negative (Negative) 04/30/25 07:54 Urine Bilirubin Negative (Negative) 04/30/25 07:54 Urine Urobilinogen Negative (Negative) 04/30/25 07:54 Ur Leukocyte Esterase Negative (Negative) 04/30/25 07:54 Urine Comment 04/30/25 07:54 Impressions Chest X-Ray 04/30/25 07:24 EXAM: XR chest 1V portable CLINICAL HISTORY: Weakness. TECHNIQUE: An X-ray image of the chest is obtained in PA projection. COMPARISON: Prior chest x-ray dated 01/29/2025 was reviewed. FINDINGS: Technically rotated patient. Pulmonary Parenchyma: Redemonstration of small pulmonary nodules in right upper and lower zone, measures 11 x 9 versus 11 x 10 mm, in upper zone. Lungs are clear bilaterally. No evidence of consolidation, collapse, or focal opacities. No evidence of pleural effusion or pleural thickening. Heart and Mediastinum: Cardiothoracic ratio cannot be commented upon due to PA projection. Atherosclerotic calcification is noted in the aortic arch. Senile tracheobronchial calcifications noted. No mediastinal widening or masses. No hilar enlargement. Bony Thorax: degenerative changes noted in the visualized bones. Bony thorax appears intact without fractures or deformities. IMPRESSION: 1. Two right-sided pulmonary nodules redemonstrated, grossly unchanged in size, Clinical correlation and if needed Follow-up with CT study advised. 2. No gross effusion, collapse or consolidation, no acute abnormalities. 3. No interval changes. Electronically signed by Arnoldo Ibarra 04-30-2025 08:37 AM
[2025-04-30] MEDS: FOLIC ACID 1 MG TAB PO STA (13:57)
[2025-04-30] MEDS: LACTATED RINGER'S 500 ML IV ONE (13:58)
[2025-04-30] MEDS: THIAMINE HCL 100 MG TAB PO STA (13:58)
--- NOTE | 2025-04-30 15:29 | CT Scan Report ---
CT SCAN OF THE BRAIN WITHOUT IV CONTRAST CLINICAL HISTORY: Dizziness. COMPARISON STUDY: CT and MRI of the brain dated 02/01/2025. TECHNIQUE: Unenhanced axial CT scan of the brain is performed from the vertex to the skull base. Imag es are reviewed in the axial, sagittal, coronal planes. A dose lowering technique was utilized adheri ng to the principles of ALARA. CT DOSE: 547.75 mGy.cm FINDINGS: Brain parenchyma: Right frontotemporal encephalomalacia is unchanged and consistent with a remote ins ult. There is age-related involutional change noting moderate subcortical and periventricular microan giopathic disease. There is no hemorrhage, mass effect, or evidence of acute territorial ischemia by CT criteria. White-white matter differentiation is preserved. No extra-axial fluid collection is seen. The small meningioma along the right temporal convexity seen by MRI is not clearly visualized by CT. Ventricles, sulci, cisterns: Prominent secondary to involutional change. Intracranial vasculature: There is atherosclerotic calcification of the cavernous carotid and vertebr al arteries. Calvarium: Unremarkable. Sinuses and mastoids: The visualized paranasal sinuses are clear. The mastoid air cells are well pneu matized. Orbits: The bony orbits are grossly intact. There are bilateral ocular lens implants. IMPRESSION: There is no hemorrhage, mass effect, or evidence of acute territorial ischemia by CT maya diamond. ACT 112: Negative or not required by law. Electronically signed by: Gui Ward M.D. 04/30/2025 3:27 PM
[2025-04-30] MEDS ORDERED: ONDANSETRON INJ 2 MG/ML 2 ML VIAL IV PRN (15:42)
[2025-04-30 17:15] LABS: INR 1.8 (0.9-1.1); Prothrombin Time 18.4 Seconds (9.0-12.0)
[2025-04-30] MEDS: WARFARIN SOD 6 MG TAB PO SCH (18:48)
[2025-04-30] MEDS ORDERED: MELATONIN 3 MG TAB PO PRN (19:39)
[2025-04-30] MEDS: levETIRAcetam 500 MG TAB PO SCH (20:41)
[2025-04-30] MEDS: PRAVASTATIN SOD 20 MG TAB PO SCH (20:42)
[2025-05-01 07:51] LABS: Hematocrit (blood only) 45.7 % (37.0-47.0); Hemoglobin 15.2 g/dl (12.0-16.0); Mean Corpuscular Hemoglobin 29.2 pg (25.0-34.0); Mean Corpuscular Volume 87.7 fL (80.0-100.0); Platelet Count 195 K/uL (130-400); RDW Standard Deviation 43.8 fL (36.4-46.3); Red Blood Count 5.21 M/uL (4.20-5.40); White Blood Count 6.08 K/ul (4.8-10.8)
[2025-05-01 08:08] LABS: Anion Gap 5.0 (3-11); Blood Urea Nitrogen 9.0 mg/dl (6-23); Calcium 9.3 mg/dl (8.6-10.3); Carbon Dioxide 32.0 mmol/L (21-32); Chloride 103.0 mmol/L (98-107); Creatinine Clr Calc Pharmacy 64.8 ml/min; Glucose 97.0 mg/dl (70-99(Fasting)); Magnesium 2.1 mg/dl (1.7-2.4); Potassium 4.0 mmol/L (3.5-5.1); Sodium 140.0 mmol/L (136-145)
[2025-05-01 08:22] LABS: INR 1.6 (0.9-1.1); Prothrombin Time 16.7 Seconds (9.0-12.0)
[2025-05-01] MEDS: CEROVITE ADV FORMULA TAB PO SCH (08:27)
[2025-05-01] MEDS: ASPIRIN 81 MG ECTAB PO SCH (08:27)
[2025-05-01] MEDS: CHOLECALCIFEROL 10 MCG (400 UNITS) TAB PO SCH (08:27)
[2025-05-01] MEDS: THIAMINE HCL 100 MG TAB PO SCH (08:28)
[2025-05-01] MEDS: FOLIC ACID 1 MG TAB PO SCH (08:28)
--- NOTE | 2025-05-01 08:40 | XCELERA ---
[id number]
[2025-05-01] MEDS: ACETAMINOPHEN 325 MG TAB PO PRN (10:02)
--- NOTE | 2025-05-01 19:08 | Hospitalist Progress Note ---
Date of Service May 01, 2025 Assessment & Plan (1) Generalized weakness: (2) Delirium: (3) History of seizure disorder: (4) Orthostatic hypotension: (5) History of stroke: Plan 89 yo female with pmhx epilepsy (simple partial seizures), hx of TIA, HTN, HLD, lumbar spinal stenosis, osteoarthritis who presents for weakness from home 2/2 orthostatic hypotension, ambulatory dysfunction. #Generalized Weakness #Orthostatic Hypotension -positive orthostatics per EMS, patient has symptoms consistent with orthostatic hypotension (dizziness with standing, using bathroom, etc) -lab workup unremarkable -suspect MSK decompensation in setting of recent hospitalizations, age, difficulty with dizziness -other etiologies to be considered include stroke (no localizing symptoms, no nystagmus), seizures (unlikely given retained consciousness), arrythmia ( possible but symptoms not consistent) Plan: -Received IVF -Echo obtained - Normal LV size and function EF 60-65%. No regional wall motion abnormalities. Moderate concentric LVH. Normal right ventricular size and syst. function. Mild to moderate Aortic stenosis. Mild mitral regurg. Normal estimated RV syst. pressure. -if symptoms do not improve with fixing orthostatic hypotension, may require MR brain (outside of tpa window, on warfarin, NIHSS of 0) -PT/OT ordered -hold meclizine for now, can trial tomorrow if still having dizziness with #Hypoactive Delirium -patient slightly confused on exam on admission -TSH WNL, UA unremarkable -likely 2/2 dehydration, hospital Plan: -delirium precautions -limit anticholinergic medications -hold memantine for now, restart after improvement in mentation -check B12/vitamin D, start folic acid/thiamine supplementation -continue duloxetine #Epilepsy -continue keppra #HTN #HLD -continue aspirin, statin Admission and Anticipated Discharge Date Admission Date: April 30, 2025 Subjective Pt seen in follow up of weakness, orthostatic hypotension Currently lying in bed in NAD Pt's 2 daughters are present at the bedside, say she was treated with n itrofurantoin for 6 days for UTI. Her symptoms were unusual, she was scratching her skin and was seeing people, so they tested her urine and discussed w/ pcp office. She was doing well on antibiotic initially but then as soon as she finished it, she was very tired -> and so was brought into the hospital UA in ED negative, CXR negat., CT head negat. She was found to have orthostatic hypotension, and fluids were given She still feels very weak No fever, chills, chest pain, shortness of breath, no abd.pain n/v Review of Systems Review of Systems: All systems reviewed & are unremarkable except as noted in Subjective Physical Exam Physical Exam: Gen: A&O 3, frail elderly F in NAD HEENT: NCAT, EOMI, not icteric. External ears normal.Moist mucous membranes. Neck: Supple, full range of motion Lungs: No Respiratory distress., CTAB CV: RRR, no edema. Abdomen: Soft, nondistended, nontender MSK: moves extremities Skin: warm, dry Neuro: awake, alert, answers appropriately, speech fluent, moves extremities Results & Data Results & Data Vital Signs (Past 12 Hours) Vital Signs Temp Pulse Pulse Resp BP Pulse Ox O2 Del Method 05/01/25 16:31 37.1 C 79 16 121/68 94 Room Air 05/01/25 14:37 76 05/01/25 12:05 36.6 C 74 18 150/87 H 96 Room Air 05/01/25 07:46 36.4 C L 59 L 16 146/50 H 95 Room Air 05/01/25 07:25 36.3 C L 65 16 155/86 H 96 Room Air 05/01/25 07:23 91 H Laboratory Results 05/01/25 Range/Units 07:13 WBC 6.08 (4.8-10.8) K/ul RBC 5.21 (4.20-5.40) M/uL Hgb 15.2 (12.0-16.0) g/dl Hct 45.7 (37.0-47.0) % MCV 87.7 (80.0-100.0) fL MCH 29.2 (25.0-34.0) pg MCHC 33.3 (32.0-36.0) g/dL RDW Std Deviation 43.8 (36.4-46.3) fL RDW Coeff of Roge 13.6 (11.5-14.5) % Plt Count 195 (130-400) K/uL MPV 10.7 (9.4-12.4) fL PT 16.7 H (9.0-12.0) Seconds INR 1.6 H (0.9-1.1) Sodium 140 (136-145) mmol/L Potassium 4.0 (3.5-5.1) mmol/L Chloride 103 (98-107) mmol/L Carbon Dioxide 32 (21-32) mmol/L Anion Gap 5 (3-11) BUN 9 (6-23) mg/dl Creatinine 0.55 L (0.6-1.2) mg/dl Est Cr Clr Drug Dosing 64.8 ml/min eGFR 88.66 BUN/Creatinine Ratio 16.4 (10-20) Glucose 97 (70-99(Fasting)) mg/dl Calcium 9.3 (8.6-10.3) mg/dl Magnesium 2.1 (1.7-2.4) mg/dl Medications Administered Current Inpatient Medications Acetaminophen (Acetaminophen 325 Mg Tab) 650 mg PO Q4H PRN PRN Reason: pain/fever Stop: 05/30/25 15:41 Last Admin: 05/01/25 10:02 Dose: 650 mg Aspirin (Aspirin 81 Mg Ectab) 81 mg PO QAM [facility] Stop: 05/31/25 08:59 Last Admin: 05/01/25 08:27 Dose: 81 mg Duloxetine HCl (Duloxetine Hcl 20 Mg Cap) 20 mg PO DAILY [facility] Stop: 05/31/25 08:59 Last Admin: 05/01/25 08:27 Dose: 20 mg Duloxetine HCl (Duloxetine Hcl 30 Mg Cap) 30 mg PO DAILY [facility] Stop: 05/31/25 08:59 Last Admin: 05/01/25 08:28 Dose: 30 mg Folic Acid (Folic Acid 1 Mg Tab) 1 mg PO QAM [facility] Stop: 05/31/25 08:59 Last Admin: 05/01/25 08:28 Dose: 1 mg Levetiracetam (Levetiracetam 500 Mg Tab) 1,000 mg PO BID [facility] Stop: 05/30/25 20:59 Last Admin: 05/01/25 08:28 Dose: 1,000 mg Melatonin (Melatonin 3 Mg Tab) 3 mg PO HS PRN PRN Reason: Sleep Stop: 05/30/25 19:38 Multivitamins/Minerals (Cerovite Adv Formula Tab) 1 tab PO QAM [facility] Stop: 05/31/25 08:59 Last Admin: 05/01/25 08:27 Dose: 1 tab Ondansetron HCl (Ondansetron Inj 2 Mg/Ml 2 Ml Vial) 4 mg IV Q6H PRN PRN Reason: Nausea Stop: 05/30/25 15:41 Polyethylene Glycol (Polyethylene (Miralax) 17 Gm Pack) 17 gm PO DAILY PRN PRN Reason: Constipation Stop: 05/30/25 15:41 Pravastatin Sodium (Pravastatin Sod 20 Mg Tab) 20 mg PO HS [facility] Stop: 05/30/25 20:59 Last Admin: 04/30/25 20:42 Dose: 20 mg Thiamine HCl (Thiamine Hcl 100 Mg Tab) 100 mg PO QAM [facility] Stop: 05/31/25 08:59 Last Admin: 05/01/25 08:28 Dose: 100 mg Vitamin D (Cholecalciferol 10 Mcg (400 Units) Tab) 10 mcg PO DAILY [facility] Stop: 05/31/25 08:59 Last Admin: 05/01/25 08:27 Dose: 10 mcg Warfarin Sodium (Warfarin Sod 6 Mg Tab) 6 mg PO [id number] [facility] Stop: 05/30/25 18:29 Last Admin: 05/01/25 17:00 Dose: 6 mg Warfarin Sodium (Warfarin Sod 3 Mg Tab) 3 mg PO [id number] [facility] Stop: 06/05/25 15:59
[2025-05-02] MEDS ORDERED: PHA DELIRIUM CONSULT PRN (01:01)
[2025-05-02 03:55] LABS: Hematocrit (blood only) 42.9 % (37.0-47.0); Hemoglobin 14.0 g/dl (12.0-16.0); Mean Corpuscular Hemoglobin 28.2 pg (25.0-34.0); Mean Corpuscular Volume 86.5 fL (80.0-100.0); Platelet Count 182 K/uL (130-400); RDW Standard Deviation 42.0 fL (36.4-46.3); Red Blood Count 4.96 M/uL (4.20-5.40); White Blood Count 6.37 K/ul (4.8-10.8)
[2025-05-02 04:13] LABS: Anion Gap 5.0 (3-11); Blood Urea Nitrogen 14.0 mg/dl (6-23); Calcium 8.9 mg/dl (8.6-10.3); Carbon Dioxide 27.0 mmol/L (21-32); Chloride 105.0 mmol/L (98-107); Creatinine Clr Calc Pharmacy 67.3 ml/min; Glucose 101.0 mg/dl (70-99(Fasting)); Magnesium 2.0 mg/dl (1.7-2.4); Potassium 3.9 mmol/L (3.5-5.1); Sodium 137.0 mmol/L (136-145)
[2025-05-02 04:24] LABS: INR 1.9 (0.9-1.1); Prothrombin Time 19.7 Seconds (9.0-12.0)
[2025-05-02] MEDS: POLYETHYLENE (MIRALAX) 17 GM PACK PO PRN (08:42)
[2025-05-02 11:52] VITALS: BP 118/71; RESP 18; TEMP 97.7; O2SAT 94
[2025-05-02 14:49] VITALS: PULSE 75
--- NOTE | 2025-05-02 14:50 | Discharge Summary ---
Date of Service May 02, 2025 Admission HPI Per Admitting Provider 89 yo female with pmhx epilepsy (simple partial seizures), hx of TIA, HTN, HLD, lumbar spinal stenosis, osteoarthritis who presents for weakness from home. Last admission on 01/2025 for syncope, did not have stroke at that time. In the ED, admitted to medicine for weakness. Patient seen and examined at bedside. Patient doing ok today. States "I feel like the world is coming upside down". When asked to describe this, she does not say she is lightheaded or dizzy. She states she feels like she is floating. Feels weak and dizzy, daughters feels she is well below her baseline. Patient lives alone, daughters live close by and help out frequently. Patient states she gets dizzy when she uses the bathroom, goes from sitting to standing. Denies chest pain, SOB, nausea, vomiting, other associated symptoms. No drug use, no alcohol use, no tobacco use. Admission Exam Per Admitting Provider Gen: A&O 3 NAD, slight confusion HEENT: NCAT, EOMI, not icteric. External ears normal. No rhinorrhea. Moist mucous membranes. Neck: Supple, full range of motion, no observable masses, No meningeal sign. Lungs: No Respiratory distress. CV: RRR, no edema. Abdomen: Soft, nondistended, No rebound tenderness. MSK: No joint swelling, no redness. Skin: No rashes, petechiae, lesions. Normal color per patient. Neuro: Normal Gait, Grossly intact. No nystagmus, no induced dizziness noted with head movement, slightly confused. NIHSS of 0 Psych: Appropriate for situation. Principal Diagnosis weakness, orthostatic hypotension Discharge Exam Gen: A&O 3, frail elderly F in NAD HEENT: NCAT, EOMI, not icteric. External ears normal.Moist mucous membranes. Neck: Supple, full range of motion Lungs: No Respiratory distress., CTAB CV: RRR, no edema. Abdomen: Soft, nondistended, nontender MSK: moves extremities Skin: warm, dry Neuro: awake, alert, answers appropriately, speech fluent, moves extremities Discharge Data Allergies Allergy/AdvReac Type Severity Reaction Status Date / Time azithromycin Allergy Mild Unknown Verified 01/30/25 00:47 [From Zithromax Z-Moe] meperidine [From Demerol] Allergy Mild Unknown Verified 01/30/25 00:47 Penicillins Allergy Mild Unknown Verified 01/30/25 00:47 Sulfa (Sulfonamide Allergy Mild Unknown Verified 01/30/25 00:47 Antibiotics) Ordered Studies 04/30/25 14:08 CT head/brain wo con Urgent FINDINGS: Brain parenchyma: Right frontotemporal encephalomalacia is unchanged and consistent with a remote insult. There is age-related involutional change noting moderate subcortical and periventricular microangiopathic disease. There is no hemorrhage, mass effect, or evidence of acute territorial ischemia by CT criteria. White-white matter differentiation is preserved. No extra-axial fluid collection is seen. The small meningioma along the right temporal convexity seen by MRI is not clearly visualized by CT. Ventricles, sulci, cisterns: Prominent secondary to involutional change. Intracranial vasculature: There is atherosclerotic calcification of the cavernous carotid and vertebral arteries. Calvarium: Unremarkable. Sinuses and mastoids: The visualized paranasal sinuses are clear. The mastoid air cells are well pneumatized. Orbits: The bony orbits are grossly intact. There are bilateral ocular lens implants. IMPRESSION: There is no hemorrhage, mass effect, or evidence of acute territorial ischemia by CT criteria. Hospital Course (1) Generalized weakness: (2) Delirium: (3) History of seizure disorder: (4) Orthostatic hypotension: (5) History of stroke: Plan 89 yo female with pmhx epilepsy (simple partial seizures), hx of TIA, HTN, HLD, lumbar spinal stenosis, osteoarthritis who presents for weakness from home 2/2 orthostatic hypotension, ambulatory dysfunction. #Generalized Weakness #Orthostatic Hypotension -positive orthostatics per EMS, patient has symptoms consistent with orthostatic hypotension (dizziness with standing, using bathroom, etc) -lab workup unremarkable -suspect MSK decompensation in setting of recent hospitalizations, age, difficulty with dizziness -other etiologies to be considered include stroke (no localizing symptoms, no nystagmus), seizures (unlikely given retained consciousness), arrythmia (possible but symptoms not consistent) Plan: -Received IVF -Echo obtained - Normal LV size and function EF 60-65%. No regional wall motion abnormalities. Moderate concentric LVH. Normal right ventricular size and syst. function. Mild to moderate Aortic stenosis. Mild mitral regurg. Normal estimated RV syst. pressure. - pt may follow up with outpt cardiology for mild to moderate - currently pt is feeling much improved and back to her normal. She worked with PT today and her daughters are present at the bedside. They wish to take her home with HH. CM already aware. #Hypoactive Delirium -patient slightly confused on exam on admission -TSH WNL, UA unremarkable -likely 2/2 dehydration, hospital Plan: -delirium precautions -limit anticholinergic medications -held memantine on admission, can restart now -B12 level 881, vitamin D level 30s (lower/normal), received folic acid/thiamine supplementation -continue duloxetine #Epilepsy -continue keppra #HTN #HLD -continue aspirin, statin Total Time Total Time Spent Total Time Spent (In Minutes): 40 Discharge Plan Discharge Items Patient Disposition: Home - Home Health Services Reason For Visit: WEAKNESS Discharge Diagnosis: weakness, orthostatic hypotension Condition on Discharge: Fair Activity: Per Instructions section Non-emergency contact: Primary Care Provider Call non-emergency contact if: you have any medication questions and your symptoms worsen Follow-up/Referrals: Carol Encarnacion PA-C [Primary Care Provider] - (Date & Time 05/08/2025 10:00 AM Provider: Lesley Lainez PA-C [facility]) Diet: Regular Addtl Attending Provider Instructions: Follow up with your primary care doctor within 1 week. The appointment was scheduled for you for 05/08/2025. Make sure to stay well hydrated. Recommend vit. D supplement, thiamine, folic acid supplement (able to obtain over the counter) - discuss this with your primary care doctor. Pending Studies at Discharge: No Stand-Alone Forms: [facility] [employer], Smoking Cessation Medications and DC Order Prescriptions: Continued warfarin 6 mg Tablet 0 mg PO [id number] Patient Comments: 04/30- last filled 11/19/24 90 day supply #90 Rx Instructions: TAKE 6MG EVERY MONDAY/MONDAY/MONDAY/MONDAY/MONDAY/MONDAY. calcium carbonate 500 mg calcium (1,250 mg) Tablet 500 mg PO QAM Patient Comments: 04/30- otc unable to verify pravastatin 20 mg Tablet 20 mg PO HS [id number]-xowzzqys-[id number] Tablet 1 tab PO QAM Patient Comments: 04/30- otc unable to verify vitamin Y13-sajmm acid 0.5-1 mg Tablet 1 tab PO WK Patient Comments: 04/30- otc unable to verify PreserVision AREDS-2 250-90-40-1 mg Capsule 1 tab PO BID Patient Comments: 04/30- otc unable to verify aspirin 81 mg Capsule 81 mg PO QAM Patient Comments: 04/30- otc unable to verify famotidine 40 mg Tablet 40 mg PO UD Patient Comments: 04/30-last filled 02/17/25 30 day supply #30. original:40 mg po daily cholecalciferol (vitamin D3) 10 mcg (400 unit) Tablet 400 unit PO DAILY Patient Comments: 04/30- otc unable to verify docusate sodium 100 mg Capsule 100 mg PO Q2D Patient Comments: 04/30- otc unable to verify Rx Instructions: TAKE THIS MED @HS warfarin 6 mg Tablet 0 mg PO WK Patient Comments: 04/30- last filled 11/19/24 90 day supply #90 Rx Instructions: TAKE 1/2 TABLET ( 3MG ) EVERY MONDAY. meclizine 12.5 mg Tablet 12.5 mg PO Q8H PRN (Reason: dizziness) Qty: 30 0RF Patient Comments: 04/30- otc/ no fill history unable to verify memantine 5 mg tablet 5 mg PO BID duloxetine 20 mg capsule,delayed release(DR/EC) 20 mg PO DAILY Rx Instructions: take with 30 mg to equal 50mg dose duloxetine 30 mg capsule,delayed release(DR/EC) 30 mg PO DAILY Rx Instructions: take with 20 mg to equal 50mg dose levetiracetam [Keppra] 500 mg tablet 1,000 mg PO UD Patient Comments: 04/30-last filled 02/18/25 30 day supply #60 1000mg po bid ferrous sulfate 325 mg (65 mg iron) tablet,delayed release (DR/EC) 325 mg PO UD Patient Comments: 04/30- last filled 02/17/25 30 day supply #60 1 tab po bid Discontinued nitrofurantoin monohyd/m-cryst 100 mg capsule 100 mg PO BID Patient Comments: 04/30- Filled 04/23 7 day supply #14 Discharge Orders: Discharge Order (Routine); Ordered 05/02/25 Ordered By: Ronak Arteaga/Other Patient Handouts: What to Know When Taking�Warfarin, ED Weakness with Uncertain Cause Admission Data Admit Date/Time: 05/02/25 13:45 Attending Provider: Cheyanne Garrett Admit Provider: Cheyanne Garrett Primary Care Provider: Carol Encarnacion Other Providers: Collins Lieberman Other Interventions: Discharge Summary Assessment (RN) Last Done: 05/02/25 14:48
--- NOTE | 2025-05-03 05:45 | Electrocardiogram Report ---
Test Reason : Blood Pressure : */* mmHG Vent. Rate : 67 BPM Atrial Rate : 67 BPM P-R Int : 214 ms QRS Dur : 94 ms QT Int : 418 ms P-R-T Axes : -23 -12 39 degrees QTcB Int : 441 ms Sinus rhythm with 1st degree A-V block Inferior infarct , age undetermined Abnormal ECG When compared with ECG of 01-Feb-2025 00:02, Inferior infarct is now Present Nonspecific T wave abnormality now evident in Inferior leads Confirmed by Julio Liao ([id number]) on 05/03/2025 5:45:17 AM Referred By: REFERRED SELF Confirmed By: Julio Liao
[2025-05-06] MEDS ORDERED: WARFARIN SOD 3 MG TAB PO SCH (16:00)
== END 2025-05-02 15:29 | disposition home health service (06) ==
LOC: 2N 06:48 → ED 06:48 → SUATTDRO 13:02 → 2N 14:57